=== PATIENT | male | born 1965 | race Caucasian/White ===

== ENCOUNTER 2016-07-31 21:29 | Inpatient (IN) | payer OTHER ==
[~2016-07-31] VITALS: Ht 185.4 cm; Wt 100.2 kg
[2016-07-31 21:49] LABS: BASOPHILS % (AUTO) 0 % (0-10); EOSINOPHILS % (AUTO) 0 % (0-10); LYMPHOCYTES # (AUTO) 1.5 X 10^3 (1.0-4.0); LYMPHOCYTES % (AUTO) 9 % (12-44); MEAN CORPUSCULAR HEMOGLOBIN 28 PG (25-34); MEAN CORPUSCULAR HGB CONC 35 G/DL (32-36); MEAN CORPUSCULAR VOLUME 81 FL (80-99); MEAN PLATELET VOLUME 9.2 FL (7.4-10.4); MONOCYTES # (AUTO) 0.8 X 10^3 (0.0-1.0); MONOCYTES % (AUTO) 5 % (0-12); NEUTROPHILS # (AUTO) 13.5 X 10^3 (1.8-7.8); NEUTROPHILS % (AUTO) 86 % (42-75); PLATELET COUNT 449 10^3/uL (130-400); RED BLOOD COUNT 6.14 10^6/uL (4.35-5.85); RED CELL DISTRIBUTION WIDTH 13.7 % (10.0-14.5); WHITE BLOOD COUNT 15.7 10^3/uL (4.3-11.0)
[2016-07-31 21:54] LABS: PROTHROMBIN TIME PATIENT 12.4 SEC (12.2-14.7)
--- NOTE | 2016-07-31 21:59 | Diagnostic Imaging Report ---
INDICATION: Chest pain FINDINGS: Portable view of the chest demonstrates the lungs to be clear. The heart, mediastinum, pulmonary vascularity and visualized bony thorax are normal. IMPRESSION: Negative chest. Dictated by: Dictated on workstation # [id number]
[2016-07-31] MEDS ORDERED: NITROGLYCERIN 2% OINT 1 GM UNIT DOSE PACKET TOP ONE ×2 (22:00→23:00)
[2016-07-31] MEDS ORDERED: ASPIRIN 81 MG CHEW (CHILDREN'S ASA) PO ONE (22:00)
[2016-07-31] MEDS ORDERED: ONDANSETRON 4 MG/2 ML (SDV) Z0FRAN IVP ONE (22:00)
[2016-07-31] MEDS ORDERED: meTOprolol 5 MG/5 ML (LOPRESSOR) VIAL IV ONE ×2 (22:00→23:00)
[2016-07-31 22:06] LABS: ALANINE AMINOTRANSFERASE 46 U/L (0-55); ALBUMIN 4.7 G/DL (3.2-4.5); AMYLASE 64 U/L (25-125); ANION GAP 15 MMOL/L (5-14); ASPARTATE AMINO TRANSFERASE 54 U/L (5-34); BILIRUBIN,TOTAL 0.9 MG/DL (0.1-1.0); BLOOD UREA NITROGEN 15 MG/DL (7-18); BUN/CREATININE RATIO 12; CALCIUM 10.7 MG/DL (8.5-10.1); CARBON DIOXIDE 22 MMOL/L (21-32); CHLORIDE 101 MMOL/L (98-107); CREATINE KINASE 575 U/L (30-200); CREATININE SERUM 1.21 MG/DL (0.60-1.30); GFR ESTIMATED > 60; GLUCOSE 178 MG/DL (70-105); LIPASE 23 U/L (8-78); MAGNESIUM 1.9 MG/DL (1.8-2.4); POTASSIUM 3.9 MMOL/L (3.6-5.0); SODIUM 138 MMOL/L (135-145); TOTAL PROTEIN 8.1 G/DL (6.4-8.2)
[2016-07-31] MEDS ORDERED: NS IV 1000 ML 1,000 ML IV ONE (22:06)
[2016-07-31 22:08] LABS: BAND NEUTROPHILS 0 %; BASOPHILS % (MANUAL) 0 %; EOSINOPHILS % (MANUAL) 0 %; LYMPHOCYTES % (MANUAL) 11 %; NEUTROPHILS % (MANUAL) 87 %
[2016-07-31 22:14] LABS: TROPONIN I 5.67 NG/ML (<0.30)
--- NOTE | 2016-07-31 22:14 | ED Chest Pain ---
General Chief Complaint: Chest Pain Stated Complaint: LOWER BACK/CHEST PAIN Nursing Triage Note: PT TO ED 10 W/ C/O CP ONSET LAST NOC, WORSE TODAY. ALSO REPORTS N/V, INCREASED BELCHING ET DECREASED APPETITE Nursing Sepsis Screen: No Definite Risk Source: patient History of Present Illness Time seen by provider: 21:40 Initial Comments PT ARRIVES VIA POV FROM HOME C/O CHEST AND MID / LOWER BACK PAIN SINCE 0 LAST NIGHT PAIN IS CONSTANT, BUT WAXES AND WANES IN INTENSITY--RATES PAIN 10/10 AT WORSE, IS 7/10 ON ARRIVAL HAS HAD SWEATS HAS HAD NAUSEA AND VOMITED AT LEAST 20 TIMES--STATES HE CANNOT KEEP WATER DOWN. HAS NOT EATEN TODAY, EXCEPT A COUPLE OF BITES OF POP TARTS THIS AM NO DIARRHEA NO SHORTNESS OF BREATH MILD NON-PRODUCTIVE COUGH OCCASIONALLY FOR A MONTH NO PALPITATIONS C/O URINARY FREQUENCY, NO PAIN ON URINATION. PT HAD SIMILAR EPISODE THE FIRST OF JUNE, WHILE AT WORK ( PT WORKS FOR [employer]) BUT REFUSED TO GO TO HOSPITAL AND DID NOT FOLLOW UP WITH PCP AFTER THE EPISODE PT HAS BEEN UNDER MUCH STRESS RECENTLY AND HAS LOST 20 LBS IN THE LAST MONTH, SINCE HIS 23 Y.O. SON 07/07/16 FROM CARDIAC ARREST--HAD HX OF TACHYCARDIA PCP: CUCO HERNANDEZ--HAS NOT SEEN IN QUITE SOME TIME Allergies and Home Medications Allergies Coded Allergies: No Known Drug Allergies (Unverified , 07/31/16) Review of Systems Constitutional: see HPI diaphoresis EENTM: No Symptoms Reported Respiratory: CoughDenies Shortness of Air, Denies Wheezing Cardiovascular: See HPI Chest PainDenies Edema, Denies Irregular Heart Rate, LightheadednessDenies Palpitations Gastrointestinal: See HPIDenies Abdominal Pain, Nausea Poor Appetite Poor Fluid Intake Vomiting Genitourinary: See HPI Frequency Flank Pain Musculoskeletal: no symptoms reported see HPI back pain Skin: no symptoms reported Psychiatric/Neurological: See HPI Anxiety Depressed Emotional ProblemsDenies Headache, Denies Numbness, Denies Paresthesia, Denies Seizure, Denies Tingling, Denies Tremors, Denies Weakness Endocrine: No Symptoms Reported Hematologic/Lymphatic: No Symptoms Reported Past Vditarl-Bkuuih-Dbopuj Hx Patient Social History Alcohol Use: Past History (NO ALCOHOL SINCE 02/2016) Recreational Drug Use: No Smoking Status: Never a Smoker Recent Foreign Travel: No Contact w/Someone Who Travel: No Recent Infectious Disease Expo: No Recent Hopitalizations: No Surgeries HX Surgeries: No Respiratory Hx Respiratory Disorders: No Cardiovascular Hx Cardiac Disorders: Yes Cardiac Disorders: High Cholesterol, Hypertension Neurological Hx Neurological Disorders: No Reproductive System Hx Reproductive Disorders: No Genitourinary Hx Genitourinary Disorders: No Gastrointestinal Hx Gastrointestinal Disorders: No Musculoskeletal Hx Musculoskeletal Disorders: No Endocrine Hx Endocrine Disorders: No HEENT HX ENT Disorders: No Cancer Hx Cancer: No Psychosocial Hx Psychiatric Problems: No Integumentary HX Skin/Integumentary Disorder: No Blood Transfusions Hx Blood Disorders: No Physical Exam Vital Signs Vital Sign - Last 12Hours 07/31/16 21:33 O2 Flow Rate 2 Capillary Refill : Less Than 3 Seconds General Appearance: No Apparent Distress WD/WN HEENT: PERRL/EOMI Neck: Full Range of Motion Normal Inspection Non Tender SuppleNo Carotid Bruit , No JVD Respiratory: Normal Breath Sounds No Accessory Muscle Use No Respiratory Distress Cardiovascular: No Edema No JVD No Murmur Normal Peripheral Pulses Tachycardia Gastrointestinal: Normal Bowel Sounds No Organomegaly No Pulsatile Mass Non Tender Soft Extremity: Normal Capillary Refill Normal Inspection Normal Range of Motion Non Tender No Calf Tenderness No Pedal Edema Neurologic/Psychiatric: Alert Oriented x3 No Motor/Sensory Deficits Normal 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 Norm as Tested Skin: Normal Color Warm/Dry Progress/Results/Core Measures Results/Orders Lab Results Laboratory Tests Test 07/31/16 21:35 Range/Units Activated Partial Thromboplast Time 24 24-35 SEC Alanine Aminotransferase (ALT/SGPT) 46 0-55 U/L Albumin 4.7 H 3.2-4.5 G/DL Alkaline Phosphatase 87 40-136 U/L Amylase Level 64 25-125 U/L Anion Gap 15 H 5-14 MMOL/L Aspartate Amino Transf (AST/SGOT) 54 H 5-34 U/L B-Type Natriuretic Peptide 50.1 <100.0 PG/ML BUN/Creatinine Ratio 12 Band Neutrophils 0 % Basophils # (Auto) 0.0 0.0-0.1 10^3/uL Basophils % (Manual) 0 % Basophils (%) (Auto) 0 0-10 % Blood Morphology Comment NORMAL Blood Urea Nitrogen 15 7-18 MG/DL Calcium Level 10.7 H 8.5-10.1 MG/DL Carbon Dioxide Level 22 21-32 MMOL/L Chloride Level 101 98-107 MMOL/L Creatine Kinase MB 46.5 *H <6.6 NG/ML Creatinine 1.21 0.60-1.30 MG/DL Eosinophils # (Auto) 0.0 0.0-0.3 10^3/uL Eosinophils % (Manual) 0 % Eosinophils (%) (Auto) 0 0-10 % Estimat Glomerular Filtration Rate > 60 Glucose Level 178 H 70-105 MG/DL Hematocrit 49 40-54 % Hemoglobin 17.3 13.3-17.7 G/DL INR Comment 1.0 0.8-1.4 Lipase 23 8-78 U/L Lymphocytes # (Auto) 1.5 1.0-4.0 X 10^3 Lymphocytes % (Manual) 11 % Lymphocytes (%) (Auto) 9 L 12-44 % Magnesium Level 1.9 1.8-2.4 MG/DL Mean Corpuscular Hemoglobin 28 25-34 PG Mean Corpuscular Hemoglobin Concent 35 32-36 G/DL Mean Corpuscular Volume 81 80-99 FL Mean Platelet Volume 9.2 7.4-10.4 FL Monocytes # (Auto) 0.8 0.0-1.0 X 10^3 Monocytes % (Manual) 2 % Monocytes (%) (Auto) 5 0-12 % Neutrophils # (Auto) 13.5 H 1.8-7.8 X 10^3 Neutrophils % (Manual) 87 % Neutrophils (%) (Auto) 86 H 42-75 % Platelet Count 449 H 130-400 10^3/uL Potassium Level 3.9 3.6-5.0 MMOL/L Prothrombin Time 12.4 12.2-14.7 SEC Red Blood Count 6.14 H 4.35-5.85 10^6/uL Red Cell Distribution Width 13.7 10.0-14.5 % Sodium Level 138 135-145 MMOL/L Total Bilirubin 0.9 0.1-1.0 MG/DL Total Creatine Kinase 575 H 30-200 U/L Total Protein 8.1 6.4-8.2 G/DL Troponin I 5.67 *H <0.30 NG/ML White Blood Count 15.7 H 4.3-11.0 10^3/uL My Orders Orders-GARRY IBARRA DO Amylase (07/31/16 21:43) Cbc With Automated Diff (07/31/16 21:43) Comprehensive Metabolic Panel (07/31/16 21:43) Creatine Kinase (07/31/16 21:43) Creatine Kinase Mb (07/31/16 21:43) Lipase (07/31/16 21:43) Partial Thromboplastin Time (07/31/16 21:43) Protime With Inr (07/31/16 21:43) Troponin I (07/31/16 21:43) Chest 1 View, Ap/Pa Only (07/31/16 21:43) O2 (07/31/16 21:43) Ekg Tracing (07/31/16 21:43) BNP (07/31/16 21:43) Monitor-Rhythm Ecg Trace Only (07/31/16 21:43) Magnesium (07/31/16 21:43) Ua Culture If Indicated (07/31/16 21:43) Blood Culture (07/31/16 21:48) Influenza A And B Antigens (07/31/16 21:48) Ondansetron Injection (Zofran Injectio (07/31/16 22:00) Metoprolol Tartrate Injection (Lopressor (07/31/16 22:00) Aspirin Chewable Tablet (Baby Aspirin Ch (07/31/16 22:00) Nitroglycerin Ointment (Nitrobid Ointme (07/31/16 22:00) Manual Differential (07/31/16 21:35) Saline Lock/Iv-Start (07/31/16 22:06) Ns Iv 1000 Ml (Sodium Chloride 0.9%) (07/31/16 22:06) Enoxaparin Injection (Lovenox Injection) (07/31/16 22:30) Metoprolol Succinate (Xl) Tab (Toprol Xl (07/31/16 22:30) Clopidogrel Tablet (Plavix Tablet) (07/31/16 22:30) Morphine Injection (Morphine Injection (07/31/16 22:24) Metoprolol Succinate (Xl) Tab (Toprol Xl (07/31/16 22:45) Metoprolol Succinate (Xl) Tab (Toprol Xl (07/31/16 22:45) Metoprolol Succinate (Xl) Tab (Toprol Xl (07/31/16 22:45) Medications Given in ED Current Medications Medications Dose Ordered Sig/Tex Route Start Time Stop Time Status Last Admin Dose Admin Aspirin 324 mg ONCE ONCE PO 07/31/16 22:00 07/31/16 22:01 DC 07/31/16 22:04 324 MG Clopidogrel Bisulfate 300 mg ONCE ONCE PO 07/31/16 22:30 07/31/16 22:31 DC 07/31/16 22:26 300 MG Enoxaparin Sodium 100 mg ONCE ONCE SC 07/31/16 22:30 07/31/16 22:31 DC 07/31/16 22:26 100 MG Metoprolol Tartrate 5 mg ONCE ONCE IV 07/31/16 22:00 07/31/16 22:01 DC 07/31/16 22:03 5 MG Metoprolol Tartrate 5 mg ONCE ONCE IV 07/31/16 23:00 07/31/16 23:02 DC 07/31/16 23:10 5 MG Nitroglycerin 0.5 inch ONCE ONCE TOP 07/31/16 23:00 07/31/16 23:02 DC 07/31/16 23:10 0.5 INCH Nitroglycerin 1 inch 1 inch ONCE ONCE TOP 07/31/16 22:00 07/31/16 22:01 DC 07/31/16 22:03 1 INCH Ondansetron HCl 4 mg ONCE ONCE IVP 07/31/16 22:00 07/31/16 22:01 DC 07/31/16 22:03 4 MG Sodium Chloride 1,000 ml @ 0 mls/hr Q0M ONCE IV 07/31/16 22:06 07/31/16 22:08 DC 07/31/16 22:12 1,000 MLS/HR Vital Signs/I&O Vital Sign - Last 12Hours 07/31/16 07/31/16 07/31/16 21:30 21:30 21:33 Temp 97.1 Pulse 126 Resp 20 B/P 150/127 Pulse Ox 93 95 O2 Delivery Room Air Room Air Nasal Cannula O2 Flow Rate 2 Blood Pressure Mean: 135 Progress Note : Progress Note PAIN EASED WITH NTG AND MORPHINE AND NO PAIN AT ALL AT TIME OF ADMIT. BP DOWN EVENTUALLY DOWN WITH MULTIPLE MEDICATIONS AND HEART RATE DOWN WITH MEDICATIONS ECG Initial ECG Impression Time: 21:37 Initial ECG Rate: 119 Initial ECG Rhythm: S.Tach (DIFFUSE Q WAVES INFERIOR, ANTERIOR AND LATERAL LEADS. NO ST SEGMENT CHANGES) Initial ECG Comparisson: No Previous ECG Available Diagnostic Imaging Comments CXR--NO ACUTE PROCESS, PER RADIOLOGIST REPORT @ 2213 Reviewed: Reviewed by Me Departure Communication Progress Notes 2210/2211--PAGED/ SPOKE WITH DR. TEJADA. ORDERS NOTED. HE WILL CALL BACK SHORTLY TO CHECK ON STATUS OF PT AND DECIDE IF TO TAKE TO [facility] TONIGHT OR IN AM. 2300--DR. TEJADA CALLED. UPDATE GIVEN. HE ADVISES ADMIT TO ICU AND HE WILL TAKE TO [facility] IN AM. Impression Impression: Primary Impression: SUBACUTE CA Additional Impressions: Uncontrolled hypertension Tachycardia Disposition: ADMITTED INPATIENT Condition: Improved Decision to Admit Reason: Admit from ER (Trauma) Decision to Admit/Date: Jul 31, 2016 Time/Decision to Admit Time: 23:00 Departure-Patient Inst. Referrals: UNKNOWN (PCP/Family) Primary Care Physician GARRY IBARRA DO Jul 31, 2016 22:13
[2016-07-31] MEDS ORDERED: CLOPIDOGREL 300 MG (PLAVIX) TABLET PO ONE ×2 (22:21→22:30)
[2016-07-31] MEDS ORDERED: morphine INJ 10 MG/ML 1ML (SYR OR VIAL) ONE (22:21)
[2016-07-31] MEDS ORDERED: ENOXAPARIN 100 MG/1 ML (LOVENOX) SYR ONE (22:21)
[2016-07-31] MEDS ORDERED: meTOproloL SUCCINATE 50 MG (TOPROL XL) TAB PO ONE (22:21)
[2016-07-31] MEDS ORDERED: morphine INJ 10 MG/ML 1ML (SYR OR VIAL) IVP STA ×2 (22:24→23:00)
[2016-07-31] MEDS ORDERED: ENOXAPARIN 100 MG/1 ML (LOVENOX) SYR SC ONE (22:30)
[2016-07-31] MEDS ORDERED: meTOprolol SUCCINATE 100 MG (TOPROL XL) TAB PO ONE (22:30)
[2016-07-31] MEDS ORDERED: meTOproloL SUCCINATE 50 MG (TOPROL XL) TAB PO SCH ×3 (22:45)
[2016-07-31] MEDS ORDERED: amLODIPine 5 MG (NORVASC) TAB PO ONE (23:15)
[2016-08-01] VITALS (30 sets, daily range): BP systolic 80–129; BP diastolic 52–100
[2016-08-01] MEDS ORDERED: CATHETER FLUSH 10 ML SYR IV PRN (01:45)
[2016-08-01] MEDS ORDERED: ONDANSETRON 4 MG/2 ML (SDV) Z0FRAN IV PRN (01:45)
[2016-08-01] MEDS ORDERED: morphine INJ 10 MG/ML 1ML (SYR OR VIAL) IV PRN (01:45)
[2016-08-01] MEDS ORDERED: NITROGLYCERIN SUBLINGUAL 0.4 MG TAB (NITROSTAT) SL PRN (01:45)
[2016-08-01 04:31] LABS: BASOPHILS % (AUTO) 0 % (0-10); EOSINOPHILS % (AUTO) 0 % (0-10); LYMPHOCYTES # (AUTO) 2.7 X 10^3 (1.0-4.0); LYMPHOCYTES % (AUTO) 21 % (12-44); MEAN CORPUSCULAR HEMOGLOBIN 28 PG (25-34); MEAN CORPUSCULAR HGB CONC 34 G/DL (32-36); MEAN CORPUSCULAR VOLUME 83 FL (80-99); MEAN PLATELET VOLUME 9.2 FL (7.4-10.4); MONOCYTES # (AUTO) 1.4 X 10^3 (0.0-1.0); MONOCYTES % (AUTO) 11 % (0-12); NEUTROPHILS # (AUTO) 8.6 X 10^3 (1.8-7.8); NEUTROPHILS % (AUTO) 68 % (42-75); PLATELET COUNT 382 10^3/uL (130-400); RED BLOOD COUNT 5.55 10^6/uL (4.35-5.85); RED CELL DISTRIBUTION WIDTH 13.5 % (10.0-14.5); WHITE BLOOD COUNT 12.7 10^3/uL (4.3-11.0)
[2016-08-01 04:57] LABS: PHOSPHORUS 5.7 MG/DL (2.3-4.7)
[2016-08-01 05:01] LABS: ALANINE AMINOTRANSFERASE 40 U/L (0-55); ALBUMIN 3.9 G/DL (3.2-4.5); ANION GAP 13 MMOL/L (5-14); ASPARTATE AMINO TRANSFERASE 75 U/L (5-34); BLOOD UREA NITROGEN 17 MG/DL (7-18); BUN/CREATININE RATIO 15; CALCIUM 9.4 MG/DL (8.5-10.1); CARBON DIOXIDE 25 MMOL/L (21-32); CHLORIDE 102 MMOL/L (98-107); CREATININE SERUM 1.14 MG/DL (0.60-1.30); GFR ESTIMATED > 60; GLUCOSE 118 MG/DL (70-105); SODIUM 140 MMOL/L (135-145); TOTAL PROTEIN 6.3 G/DL (6.4-8.2)
[2016-08-01 05:08] LABS: MYOGLOBIN SERUM 193.3 NG/ML (10.0-92.0)
[2016-08-01] MEDS: CATHETER FLUSH 10 ML SYR IV SCH ×3 (05:38→22:00)
[2016-08-01] MEDS ORDERED: LACTATED RINGERS 1,000 ML IV ONE (05:45)
[2016-08-01] MEDS: MAGNESIUM 1 GM/100 ML IVPB 100 ML IV SCH (05:58)
[2016-08-01] MEDS: POTASSIUM CL 10MEQ/50ML IVPB 50 ML IV SCH (05:58)
[2016-08-01] MEDS: KCL 20 MEQ TAB (K-DUR) PO SCH (05:58)
[2016-08-01] MEDS ORDERED: NITROGLYCERIN 2% OINT 1 GM UNIT DOSE PACKET TOP SCH ×2 (06:00)
[2016-08-01] MEDS ORDERED: LIDOCAINE 1% INJ 20 ML (XYLOCAINE) VIAL ONE (06:59)
[2016-08-01] MEDS ORDERED: NS IV 1000 ML 1,000 ML ONE (06:59)
[2016-08-01] MEDS ORDERED: HEParin (CATH LAB) 2,000 ML IV ONE (06:59)
[2016-08-01] MEDS ORDERED: fentaNYL INJECTION 100 MCG/2 ML AMP ONE (07:07)
[2016-08-01] MEDS ORDERED: MIDAZOLAM 5 MG/5 ML (VERSED) VIAL ONE (07:07)
[2016-08-01] MEDS ORDERED: diphenhydrAMINE 50 MG/ML INJ (BENADRYL) ONE (07:07)
[2016-08-01] MEDS ORDERED: NITROGLYCERIN DRIP 25 MG/D5W 250 ML IV ONE (07:08)
[2016-08-01] MEDS ORDERED: HEParin 1000 UNIT/ML (10ML VIAL) FOR BOLUS ONE (07:08)
--- NOTE | 2016-08-01 07:13 | Cardiology History & Physical ---
HPI-Cardiology Cardiology H&P Date of Admission 07/31/16 Primary Care Physician Joanne,Local Physician Attending Physician Rose Lorenz MD FACP [facility] Consulting Physician BK CC: Chest discomfort HPI: 51 yo man who had continuous chest pain beginning the evening of 07/30/16 for which he finally presented to the ER more than 24 hours later. Pain was mid- chest pressure, varying from mild to severe, intermittently associated with diaphoresis, no syncope or palp, some intermittent shortness of breath, and lasted continuously for well over 24 hours. Now resolved, but bp intermittently somewhat low. Denies fever or chill. Denies such chest discomfort before. Denies leg swelling. Denies syncope or presyncope Review of Systems-Cardiology Review of Systems Constitutional: malaiseNo weight loss, No weight gain Eyes: No vision change Ears/Nose/Throat: No ear discharge, No nasal drainage, No recent hearing loss Respiratory: As described under HPI Cardiovascular: As described under HPI Gastrointestinal: No diarrhea, No nausea, No vomiting Genitourinary: No dysuria, No hematuria, No urine frequency changes Musculoskeletal: No back pain, No joint pain Skin: No rash, No ulcerations Psychiatric/Neurological: No focal weakness, No seizure Hematologic: No bleeding abnormalities EMS-Rdzfdm-Gxmidd Hx Patient Social History Alcohol Use: Past History (NO ALCOHOL SINCE 02/2016) Recreational Drug Use: No Smoking Status: Never a Smoker Recent Foreign Travel: No Recent Infectious Disease Expo: No Hospitalization with Isolation: Denies Physical Abuse Screen: No Sexual Abuse: No Past Medical History PMH As described under Assessment. Family Medical History Family History: Cardiovascular disease 19 MOTHER, , Age:60, Onset:Unknown G8 BROTHER, Onset:Unknown Diabetes mellitus 19 MOTHER, , Age:60, Onset:Unknown FH: CABG (coronary artery bypass surgery) 19 MOTHER, , Age:60, Onset:Unknown FH: Crohn's disease G8 SISTER, , Age:42, Onset:Unknown Hypercholesterolemia 19 FATHER, Onset:Unknown Hypertension 19 FATHER, Onset:Unknown G8 BROTHER, Onset:Unknown Allergies and Home Medications Allergies Coded Allergies: No Known Drug Allergies (Unverified , 07/31/16) Physical Exam-Cardiology Physical Exam Vital Signs/I&O Vital Sign - Last 12Hours 07/31/16 07/31/16 07/31/16 08/01/16 21:30 21:30 21:33 00:30 Temp 97.1 Pulse 126 81 Resp 20 20 B/P 150/127 Pulse Ox 93 95 95 O2 Delivery Room Air Room Air Nasal Cannula O2 Flow Rate 2 2 08/01/16 08/01/16 08/01/16 08/01/16 00:30 00:46 01:00 01:00 Temp 97.7 Pulse 81 86 86 Resp 14 25 B/P 124/94 124/100 Pulse Ox 97 97 98 O2 Delivery Nasal Cannula Nasal Cannula O2 Flow Rate 2.00 2.00 2.00 08/01/16 08/01/16 08/01/16 08/01/16 01:15 01:30 01:45 02:00 Pulse 85 81 78 82 Resp 13 22 11 28 B/P 116/92 110/76 102/63 101/60 Pulse Ox 96 98 98 98 O2 Delivery Nasal Cannula Nasal Cannula Nasal Cannula Nasal Cannula O2 Flow Rate 2.00 2.00 2.00 2.00 08/01/16 08/01/16 08/01/16 08/01/16 02:30 03:00 03:30 04:00 Pulse 78 77 75 68 Resp 21 25 32 19 B/P 91/60 84/52 95/58 93/58 Pulse Ox 98 97 97 97 O2 Delivery Nasal Cannula Nasal Cannula Nasal Cannula Nasal Cannula O2 Flow Rate 2.00 2.00 2.00 2.00 08/01/16 08/01/16 08/01/16 08/01/16 04:00 04:00 05:00 06:00 Temp 97.5 Pulse 66 67 Resp 21 19 B/P 95/63 84/57 Pulse Ox 97 98 99 O2 Delivery Nasal Cannula Nasal Cannula O2 Flow Rate 2.00 2.00 2.00 Capillary Refill : Less Than 3 Seconds Constitutional: AAO x 3 well-developed well-nourished HEENT: hearing is well preservedNo xanthelasmas are seen Neck: No carotid bruit, carotid pulses are 2 + bilaterally with good upstrokes Respiratory: No accessory muscle use, lungs clear to percussion lungs clear to auscultation Cardiovascular: regular rate-rhythm S1 and S2 systolic murmur (faint KETURAH at cardiac base) Gastrointestinal: No tender, softNo guarding, No rebound, audible bowel sounds Extremities: No clubbing, No cyanosis, No significant edema Neurologic/Psychiatric: oriented x 3 grossly intact power is 5/5 both on sides Skin: No rash on exposed areas, No ulcerations on exposed areas Data Review Labs Laboratory Tests 07/31/16 21:35: Activated Partial Thromboplast Time 24, Alanine Aminotransferase (ALT/SGPT) 46, Albumin 4.7H, Alkaline Phosphatase 87, Amylase Level 64, Anion Gap 15H, Aspartate Amino Transf (AST/SGOT) 54H, B-Type Natriuretic Peptide 50.1, BUN/ Creatinine Ratio 12, Band Neutrophils 0, Basophils # (Auto) 0.0, Basophils % ( Manual) 0, Basophils (%) (Auto) 0, Blood Morphology Comment NORMAL, Blood Urea Nitrogen 15, Calcium Level 10.7H, Carbon Dioxide Level 22, Chloride Level 101, Creatine Kinase MB 46.5*H, Creatinine 1.21, Eosinophils # (Auto) 0.0, Eosinophils % (Manual) 0, Eosinophils (%) (Auto) 0, Estimat Glomerular Filtration Rate > 60, Glucose Level 178H, Hematocrit 49, Hemoglobin 17.3, INR Comment 1.0, Lipase 23, Lymphocytes # (Auto) 1.5, Lymphocytes % (Manual) 11, Lymphocytes (%) (Auto) 9L, Magnesium Level 1.9, Mean Corpuscular Hemoglobin 28, Mean Corpuscular Hemoglobin Concent 35, Mean Corpuscular Volume 81, Mean Platelet Volume 9.2, Monocytes # (Auto) 0.8, Monocytes % (Manual) 2, Monocytes ( %) (Auto) 5, Neutrophils # (Auto) 13.5H, Neutrophils % (Manual) 87, Neutrophils (%) (Auto) 86H, Platelet Count 449H, Potassium Level 3.9, Prothrombin Time 12.4 , Red Blood Count 6.14H, Red Cell Distribution Width 13.7, Sodium Level 138, Total Bilirubin 0.9, Total Creatine Kinase 575H, Total Protein 8.1, Troponin I 5.67*H, White Blood Count 15.7H 08/01/16 04:03: Alanine Aminotransferase (ALT/SGPT) 40, Albumin 3.9, Alkaline Phosphatase 64, Anion Gap 13, Aspartate Amino Transf (AST/SGOT) 75H, BUN/Creatinine Ratio 15, Basophils # (Auto) 0.0, Basophils (%) (Auto) 0, Blood Urea Nitrogen 17, Calcium Level 9.4, Carbon Dioxide Level 25, Chloride Level 102, Creatinine 1.14, Eosinophils # (Auto) 0.0, Eosinophils (%) (Auto) 0, Estimat Glomerular Filtration Rate > 60, Glucose Level 118H, Hematocrit 46, Hemoglobin 15.4, Lymphocytes # (Auto) 2.7, Lymphocytes (%) (Auto) 21, Magnesium Level 2.0, Mean Corpuscular Hemoglobin 28, Mean Corpuscular Hemoglobin Concent 34, Mean Corpuscular Volume 83, Mean Platelet Volume 9.2, Monocytes # (Auto) 1.4H, Monocytes (%) (Auto) 11, Neutrophils # (Auto) 8.6H, Neutrophils (%) (Auto) 68, Platelet Count 382, Potassium Level 4.0, Red Blood Count 5.55, Red Cell Distribution Width 13.5, Sodium Level 140, Total Bilirubin 1.0, Total Protein 6.3L, Troponin I 18.19*H, White Blood Count 12.7H, Cholesterol Level 205H, HDL Cholesterol 36L, LDL Cholesterol Direct 149H, Myoglobin 193.3H, Phosphorus Level 5.7H, Triglycerides Level 163H, VLDL Cholesterol 33 Laboratory Tests 07/31/16 21:35 08/01/16 04:03 A/P-Cardiology Assessment/Admission Diagnosis * Subacute myocardial infarction without ST elevation and with post-infarction angina * Hypertension, by history * Hyperlipidemia, by history * Fam h/o early CAD Discussion and Recomendations * Card cath, with possible ad hoc cor PCI, is recommended. I went over the rationale, procedure, risks, benefits, potential complications and alternatives of these procedures in detail. He understands and provides informed consent. Arrangements are being made Clinical Quality Measures AMI/AHF: ASA po Prior to arrival: No DVT/VTE Risk/Contraindication: Risk Factor Score Per Nursin RFS Level Per Nursing on Admit: 4+=Very High ROSE LORENZ MD [facility] CCDS Aug 01, 2016 07:12
[2016-08-01] MEDS ORDERED: FLU TRIvalent (5 YOA+) 2016-17 (AFLURIA) 0.5 ML IM ONE (07:15)
[2016-08-01] MEDS ORDERED: DOPamine DRIP 250 ML IV ONE ×2 (07:30→08:25)
[2016-08-01] MEDS: NS IV 1000 ML 1,000 ML IV SCH ×3 (07:30→18:38)
--- NOTE | 2016-08-01 07:42 | Cardiac Procedure Note-CS/ASA ---
Pre-Procedure Note Pre-Op Procedure Note H&P Reviewed The H&P was reviewed, patient examined and no changes noted. Date H&P Reviewed: Aug 01, 2016 Time H&P Reviewed: 07:41 Conscious Sedation Pre-Proced Time Reviewed: 07:41 ASA Class: 4 Airway Mallampati Classification: ([place] appropriate class) I. II. III, IV Lungs Heart ASA score ASA 1: a normal healthy patient ASA 2: a patient with a mild systemic disease (mid diabetes, controlled hypertension, obesity ASA 3: a patient with a severe systemic disease that limits activity (angina , COPD, prior Myocardial infarction) ASA 4: a patient with an incapacitating disease that is a constant threat to life (CHF, renal failure) ASA 5: a moribund patient not expected to survive 24 hrs. (ruptured aneurysm) ASA 6: a declared brain patient whose organs are being harvested. For emergent operations, add the letter E after the classification Grade 2 Sedation Plan: Analgesia, Amnesia, Plan communicated to team members, Discussed options with patient/fam, Discussed risks with patient/fam Note The patient is an appropriate candidate to undergo the planned procedure, sedation, and anesthesia. The patient immediately re-assessed prior to indication. [place] TEJADA MD FACP [facility] CCDS Aug 01, 2016 07:42
[2016-08-01] MEDS ORDERED: EPTIFIBATIDE DRIP 100 ML IV ONE (08:04)
[2016-08-01] MEDS ORDERED: EPTIFIBATIDE BOLUS 10 ML IV ONE (08:04)
--- NOTE | 2016-08-01 08:05 | Diagnostic Imaging Report ---
INDICATION: Hypertension and tachycardia. Compared 07/31/2016 FINDINGS: The lungs are free of acute infiltrate. The heart size not appreciably changed. No vascular congestion. No effusion or pneumothorax. IMPRESSION: No acute appearing abnormality Dictated by: Dictated on workstation # [id number]
[2016-08-01] MEDS ORDERED: NS (IVPB) 250 ML ONE (08:13)
[2016-08-01] MEDS ORDERED: niCARdipine 25 MG/10 ML (CARDENE) AMP IV ONE (08:13)
[2016-08-01] MEDS ORDERED: NS IV 1000 ML 1,000 ML IV SCH (08:15)
[2016-08-01] MEDS ORDERED: CLOPIDOGREL 300 MG (PLAVIX) TABLET PO ONE (08:41)
[2016-08-01] MEDS ORDERED: ASPIRIN 81 MG CHEW (CHILDREN'S ASA) ONE (08:41)
[2016-08-01] MEDS ORDERED: PATIENT MAY USE OWN MEDS, ALL PO SCH (09:00)
[2016-08-01] MEDS ORDERED: ASPIRIN E.C. 325 MG (ECOTRIN) TABLET PO SCH (09:00)
[2016-08-01] MEDS: CLOPIDOGREL 75 MG (PLAVIX) TABLET PO SCH (09:00)
[2016-08-01] MEDS: ASPIRIN E.C. 81 MG (ECOTRIN) TAB PO SCH (09:00)
[2016-08-01] MEDS ORDERED: ENOXAPARIN 100 MG/1 ML (LOVENOX) SYR SC SCH (09:00)
[2016-08-01] MEDS: ENOXAPARIN 40 MG/0.4 ML (LOVENOX) SYR SC SCH (18:39)
[2016-08-01] MEDS: meTOprolol TARTRATE 25 MG (LOPRESSOR) TABLET PO SCH (21:00)
[2016-08-01] MEDS: ATORVASTATIN 40 MG (LIPITOR) TABLET PO SCH (21:25)
[2016-08-02] VITALS (14 sets, daily range): BP systolic 93–133; BP diastolic 63–89
[2016-08-02 04:37] LABS: BASOPHILS % (AUTO) 0 % (0-10); EOSINOPHILS # (AUTO) 0.1 10^3/uL (0.0-0.3); EOSINOPHILS % (AUTO) 1 % (0-10); LYMPHOCYTES # (AUTO) 2.8 X 10^3 (1.0-4.0); LYMPHOCYTES % (AUTO) 32 % (12-44); MEAN CORPUSCULAR HEMOGLOBIN 28 PG (25-34); MEAN CORPUSCULAR HGB CONC 32 G/DL (32-36); MEAN CORPUSCULAR VOLUME 86 FL (80-99); MEAN PLATELET VOLUME 9.2 FL (7.4-10.4); MONOCYTES # (AUTO) 0.8 X 10^3 (0.0-1.0); MONOCYTES % (AUTO) 9 % (0-12); NEUTROPHILS # (AUTO) 5.1 X 10^3 (1.8-7.8); NEUTROPHILS % (AUTO) 58 % (42-75); PLATELET COUNT 281 10^3/uL (130-400); RED BLOOD COUNT 4.65 10^6/uL (4.35-5.85); RED CELL DISTRIBUTION WIDTH 13.6 % (10.0-14.5); WHITE BLOOD COUNT 8.8 10^3/uL (4.3-11.0)
[2016-08-02 05:03] LABS: ANION GAP 8 MMOL/L (5-14); BLOOD UREA NITROGEN 16 MG/DL (7-18); BUN/CREATININE RATIO 14; CALCIUM 8.1 MG/DL (8.5-10.1); CARBON DIOXIDE 24 MMOL/L (21-32); CHLORIDE 108 MMOL/L (98-107); CREATININE SERUM 1.15 MG/DL (0.60-1.30); GFR ESTIMATED > 60; GLUCOSE 107 MG/DL (70-105); MAGNESIUM 1.8 MG/DL (1.8-2.4); PHOSPHORUS 2.9 MG/DL (2.3-4.7); POTASSIUM 3.7 MMOL/L (3.6-5.0); SODIUM 140 MMOL/L (135-145)
[2016-08-02] MEDS: MAGNESIUM 1 GM/100 ML IVPB 100 ML IV SCH (05:28)
[2016-08-02] MEDS: KCL 20 MEQ TAB (K-DUR) PO SCH (05:28)
[2016-08-02] MEDS: POTASSIUM CL 10MEQ/50ML IVPB 50 ML IV SCH (05:28)
[2016-08-02] MEDS: CATHETER FLUSH 10 ML SYR IV SCH ×3 (05:30→21:21)
--- NOTE | 2016-08-02 08:49 | Diagnostic Imaging Report ---
EXAMINATION: Portable upright radiograph of the chest. INDICATION: Followup MD. Uncontrolled hypertension. FINDINGS: The lungs appear clear except for mild right basilar atelectasis. The heart size is moderately enlarged. There is no significant infiltrate or vascular congestion. There is rotation on this radiograph which is probably responsible for the slightly asymmetric increased density over the left lung. Extrapleural fat is probably responsible for the lateral chest wall opacity with no definite effusion or pneumothorax. IMPRESSION: Cardiomegaly. Mild right basilar atelectasis. Dictated by: Dictated on workstation # [id number]
--- NOTE | 2016-08-02 09:01 | Progress Note-Cardiology ---
Cardiology SOAP Progress Note Subjective: Sitting up in bed. No c/o CP, palpitations, syncope, near syncope or dyspnea. No c/o right groin pain Objective: I&O/Vital Signs Vital Sign - Last 12Hours 08/02/16 08/02/16 08/02/16 08/02/16 05:00 06:00 07:00 07:00 Pulse 72 35 72 73 Resp 24 19 22 B/P 96/74 98/79 105/82 Pulse Ox 92 92 94 O2 Delivery Room Air Room Air Room Air 08/02/16 08/02/16 08/02/16 08/02/16 08:00 09:00 10:00 12:49 Temp 97.4 99.1 Pulse 80 77 72 54 Resp 24 25 20 18 B/P 98/73 113/81 110/85 125/89 Pulse Ox 97 94 95 96 O2 Delivery Room Air Room Air Room Air Room Air 08/02/16 13:00 Pulse 86 Intake and Output 08/02/16 00:00 Intake Total 2850 ml Output Total 1070 ml Balance 1780 ml Weight (Pounds): 222 Weight (Ounces): 1.0 Weight (Calculated Kilograms): [id number] Side: right Groin site without hematoma: Yes Condition: DP/PT pulses palpable, extremity w/d/p Bruising: mild bruising Constitutional: AAO x 3 well-developed well-nourished Respiratory: No accessory muscle use, lungs clear to percussion lungs clear to auscultation Cardiovascular: regular rate-rhythm S1 and S2 systolic murmur (faint KETURAH at cardiac base) Gastrointestional: No tender, softNo guarding, No rebound, audible bowel sounds Extremities: No clubbing, No cyanosis, No significant edema Neurologic/Psychiatric: oriented x 3 grossly intact power is 5/5 both on sides Skin: No rash on exposed areas, No ulcerations on exposed areas Results/Procedures: Labs Laboratory Tests 08/02/16 03:41: Anion Gap 8, BUN/Creatinine Ratio 14, Basophils # (Auto) 0.0, Basophils (%) ( Auto) 0, Blood Urea Nitrogen 16, Calcium Level 8.1L, Carbon Dioxide Level 24, Chloride Level 108H, Creatinine 1.15, Eosinophils # (Auto) 0.1, Eosinophils (%) (Auto) 1, Estimat Glomerular Filtration Rate > 60, Glucose Level 107H, Hematocrit 40, Hemoglobin 12.9L, Lymphocytes # (Auto) 2.8, Lymphocytes (%) (Auto ) 32, Magnesium Level 1.8, Mean Corpuscular Hemoglobin 28, Mean Corpuscular Hemoglobin Concent 32, Mean Corpuscular Volume 86, Mean Platelet Volume 9.2, Monocytes # (Auto) 0.8, Monocytes (%) (Auto) 9, Neutrophils # (Auto) 5.1, Neutrophils (%) (Auto) 58, Phosphorus Level 2.9, Platelet Count 281, Potassium Level 3.7, Red Blood Count 4.65, Red Cell Distribution Width 13.6, Sodium Level 140, White Blood Count 8.8 Microbiology 07/31/16 Blood Culture - Preliminary, Resulted No growth 08/01/16 MRSA Screen - Final, Complete MRSA not isolated A/P: Assessment: * Subacute myocardial infarction without ST elevation * CAD - s/p successful stent placement to the prox Ramus with an Alpine Xience 2.25 x 28 mm. LVEF 60% * Hypertension, by history * Hyperlipidemia - statin tx * Fam h/o early CAD Plan: * S/P cardiac cath on 08-01-16 with successful stent placement * Echocardiogram today to evaluate structure * Continue current medications * Increase ambulation Physician Assessment Physician Assessment Lungs: clear Cor: reg A&R * As documented in our note above * I went over the details of cath findings and interventions with him in detail , and answered questions * I have advised increased ambulation Clinical Quality Measures AMI/AHF: ASA po Prior to arrival: ROGELIO Castillo Aug 02, 2016 09:01 [place] TEJADA MD FACP [facility] CCDS Aug 02, 2016 16:49 * Subacute myocardial infarction without ST elevation * CAD - s/p successful stent placement to the prox Ramus with an Alpine Xience 2.25 x 28 mm. LVEF 60% * Hypertension, by history * Hyperlipidemia - statin tx * Fam h/o early CAD Plan: * S/P cardiac cath on 08-01-16 with successful stent placement * Echocardiogram today to evaluate structure * Continue current medications * Increase ambulation Clinical Quality Measures AMI/AHF: ASA po Prior to arrival: ROGELIO Castillo Aug 02, 2016 09:01
[2016-08-02] MEDS: meTOprolol TARTRATE 25 MG (LOPRESSOR) TABLET PO SCH ×2 (09:39→21:19)
[2016-08-02] MEDS: ASPIRIN E.C. 81 MG (ECOTRIN) TAB PO SCH (09:39)
[2016-08-02] MEDS: CLOPIDOGREL 75 MG (PLAVIX) TABLET PO SCH (09:39)
--- NOTE | 2016-08-02 11:42 | CARDIAC CATHETERIZATION ---
PROCEDURE PHYSICIAN: INDIANA TEJADA CARDIAC CATHETERIZATION AND CORONARY INTERVENTION REPORT: DATE OF PROCEDURE: 08/01/2016 Otto Adame is a 51-year-old man who presented with a subacute myocardial infarction that began on 07/30/2016 and he presented more than 24 hours later. Due to evidence of recent infarction and post infarction angina, cardiac catheterization was carried out after having obtained an informed consent for cardiac catheterization and ad hoc coronary intervention, if needed. He was brought to the cardiac catheterization laboratory in a fasting state. The right groin was prepared and draped in the usual sterile fashion. 1% lidocaine was used for local anesthesia. Modified Seldinger technique was used to advance a 6-Cambodian sheath in right femoral artery. 6-Cambodian JL4 catheter was used for left coronary angiography. 6-Cambodian JR4 catheter was used for right coronary angiography. A 6-Cambodian pigtail catheter was used for left heart catheterization, left ventricular angiography. PERCUTANEOUS INTERVENTION TO THE RAMUS INTERMEDIUS ARTERY: Following completion of the diagnostic procedure, we used a 6-Cambodian JL4.5 guide catheter to engage the left coronary artery and used a ChoICE floppy wire to cross a 99% stenosis within the ostial and proximal ramus intermedius and the tip of the wire was placed in the distal vessel. There was a large amount of clot and we performed 2 runs of suction thrombectomy with the 6-Cambodian Xpress Way catheter. Subsequently we carried out balloon angioplasty at the site of the stenoses and we then proceeded with placement of an Alpine Xience 2.25 x 28 mm stent that extends from the ostium of the ramus intermedius artery into the proximal and mid ramus intermedius artery. This was very carefully positioned and the stent was deployed at 20 atmospheres. Subsequent angiography revealed 0% residual stenosis at the previous site of 99% stenosis. The flow that was previously at ANGELICA 1 improved to ANGELICA 3. The distal part of this vessel does have severe diffuse disease, which is not amenable to intervention on account of small vessel caliber at those sites. The patient tolerated the procedure well. Angioplasty equipment was removed. Angiography of the right femoral artery was carried out through the sheath. Mynx was used to achieve hemostasis. HEMODYNAMICS: Left ventricular end diastolic pressure following coronary angiography was 10 mmHg. There was no significant pressure gradient on pullback across the aortic valve. Ascending aortic pressure was 89/55 with a mean of 64 mmHg. LEFT VENTRICULAR ANGIOGRAPHY: Left ventricular angiography was carried out in the right anterior oblique projection. Global left ventricular systolic function is well preserved. There is apical hypokinesis. Left ventricular ejection fraction is approximately 60%. There does not appear to be significant mitral regurgitation. CORONARY ANGIOGRAPHY: The left main coronary does not exhibit significant disease. The left anterior descending artery has mild plaques. The ramus intermedius artery had 99% ostial and proximal stenosis, to which successful stenting was carried out with Alpine Xience 2.25 x 28 mm stent after we had performed aspiration thrombectomy and balloon angioplasty. This resulted in resolution of stenosis to 0% and hoahaoism of antegrade flow ANGELICA 3. The left circumflex does not exhibit significant disease. The right coronary artery is dominant and does not exhibit significant disease. CONCLUSION: 1. Coronary artery disease primarily single-vessel, primarily consisting of 99% ostial and proximal stenosis of the ramus intermedius artery to which successful balloon angioplasty and stenting was carried out (Alpine Xience 2.25 x 23 mm stent deployed at 20 atmospheres), which reduced the stenosis to 0% residual and improved antegrade flow to normal. The very distal part of this vessel does have diffuse, severe disease that is not amenable to intervention on account of small vessel caliber where these stenoses are. 2. Well-preserved global left ventricular systolic function and ejection fraction of 60%. 3. Mild apical hypokinesis. 4. Normal left ventricular end-diastolic pressure. 5. No significant mitral regurgitation. DISCUSSION AND RECOMMENDATIONS: Aspirin and Plavix have been added to the regimen and are being continued. Statins have been added to the regimen are being continued. Beta blockers will be given if the blood pressure tolerates. At the time of this dictation, blood pressure is somewhat low for beta blockers. He did receive beta blockers at the time of presentation. Job ID: [id number] Dictated Date: 08/01/2016 08:55:32 Lumber Handler Date: 08/02/2016 11:26:02 / winston
[2016-08-02] MEDS: ENOXAPARIN 40 MG/0.4 ML (LOVENOX) SYR SC SCH (13:58)
[2016-08-02] MEDS: ATORVASTATIN 40 MG (LIPITOR) TABLET PO SCH (21:19)
[2016-08-03] VITALS: BP 131/81
[2016-08-03 04:00] VITALS: BP 118/75
[2016-08-03 04:56] LABS: BASOPHILS % (AUTO) 0 % (0-10); EOSINOPHILS # (AUTO) 0.1 10^3/uL (0.0-0.3); EOSINOPHILS % (AUTO) 2 % (0-10); LYMPHOCYTES # (AUTO) 2.2 X 10^3 (1.0-4.0); LYMPHOCYTES % (AUTO) 32 % (12-44); MEAN CORPUSCULAR HEMOGLOBIN 28 PG (25-34); MEAN CORPUSCULAR HGB CONC 33 G/DL (32-36); MEAN CORPUSCULAR VOLUME 84 FL (80-99); MEAN PLATELET VOLUME 9.2 FL (7.4-10.4); MONOCYTES # (AUTO) 0.7 X 10^3 (0.0-1.0); MONOCYTES % (AUTO) 11 % (0-12); NEUTROPHILS # (AUTO) 3.9 X 10^3 (1.8-7.8); NEUTROPHILS % (AUTO) 56 % (42-75); PLATELET COUNT 267 10^3/uL (130-400); RED BLOOD COUNT 5.11 10^6/uL (4.35-5.85); RED CELL DISTRIBUTION WIDTH 13.2 % (10.0-14.5); WHITE BLOOD COUNT 6.9 10^3/uL (4.3-11.0)
[2016-08-03] MEDS: CATHETER FLUSH 10 ML SYR IV SCH (05:14)
[2016-08-03] MEDS: POTASSIUM CL 10MEQ/50ML IVPB 50 ML IV SCH (05:20)
[2016-08-03] MEDS: KCL 20 MEQ TAB (K-DUR) PO SCH (05:21)
[2016-08-03] MEDS: MAGNESIUM 1 GM/100 ML IVPB 100 ML IV SCH (05:21)
[2016-08-03 05:32] LABS: ANION GAP 9 MMOL/L (5-14); BLOOD UREA NITROGEN 12 MG/DL (7-18); BUN/CREATININE RATIO 13; CALCIUM 8.6 MG/DL (8.5-10.1); CARBON DIOXIDE 25 MMOL/L (21-32); CHLORIDE 107 MMOL/L (98-107); CREATININE SERUM 0.92 MG/DL (0.60-1.30); GFR ESTIMATED > 60; GLUCOSE 119 MG/DL (70-105); MAGNESIUM 2.1 MG/DL (1.8-2.4); PHOSPHORUS 3.5 MG/DL (2.3-4.7); POTASSIUM 3.5 MMOL/L (3.6-5.0); SODIUM 141 MMOL/L (135-145)
[2016-08-03 07:57] VITALS: BP 122/80
--- NOTE | 2016-08-03 08:00 | Diagnostic Imaging Report ---
INDICATION: Myocardial infarction. 0541 hours. Comparison is made to study of 08/02/2016. FINDINGS: Heart size and pulmonary vascularity are within normal limits, and the lungs are clear, bilaterally. IMPRESSION: Unremarkable chest. Dictated by: Dictated on workstation # [id number]
[2016-08-03] MEDS ORDERED: ATOR40TA PO (08:59)
[2016-08-03] MEDS ORDERED: ASPI-983 PO (08:59)
[2016-08-03] MEDS ORDERED: METO-333 PO (08:59)
[2016-08-03] MEDS ORDERED: CLOP75TA28 PO (08:59)
--- NOTE | 2016-08-03 09:00 | Discharge Inst-Cardiology ---
Discharge Inst-Cardiac Discharge Medications New Medications: Aspirin (Aspirin EC) 81 Mg Tablet. 81 MG PO DAILY #90 Ref 3 TAB Atorvastatin Calcium (Lipitor) 40 Mg Tablet 40 MG PO HS #30 Ref 5 TAB Clopidogrel Bisulfate (Clopidogrel) 75 Mg Tablet 75 MG PO DAILY #90 Ref 3 TAB Metoprolol Tartrate (Metoprolol Tartrate) 25 Mg Tablet 12.5 MG PO BID #90 Ref 3 TAB New, Converted or Re-Newed RX: Transmitted to Pharmacy Patient Instructions Patient Instructions: Follow up appointment in one week with ROGELIO Hagan Aug 03, 2016 09:00
--- NOTE | 2016-08-03 09:04 | Progress Note-Cardiology ---
Cardiology SOAP Progress Note Subjective: Sitting up in bed. No c/o CP, dyspnea, palpitations, syncope or near syncope. No c/o groin discomfort. Objective: I&O/Vital Signs Vital Sign - Last 12Hours 08/03/16 08/03/16 08/03/16 08/03/16 00:00 01:00 04:00 07:00 Temp 99.5 97.5 Pulse 77 77 73 71 Resp 18 18 B/P 131/81 118/75 Pulse Ox 98 95 O2 Delivery Room Air Room Air 08/03/16 07:57 Temp 98.4 Pulse 70 Resp 16 B/P 122/80 Pulse Ox 97 O2 Delivery Room Air Intake and Output 08/03/16 00:00 Intake Total 440 ml Output Total 325 ml Balance 115 ml Weight (Pounds): 221 Weight (Ounces): 1.0 Weight (Calculated Kilograms): 100.527003 Side: right Groin site without hematoma: Yes Condition: DP/PT pulses palpable, extremity w/d/p Bruising: mild bruising Constitutional: AAO x 3 well-developed well-nourished Respiratory: No accessory muscle use, lungs clear to percussion lungs clear to auscultation Cardiovascular: regular rate-rhythm S1 and S2 systolic murmur (faint KETURAH at cardiac base) Gastrointestional: No tender, softNo guarding, No rebound, audible bowel sounds Extremities: No clubbing, No cyanosis, No significant edema Neurologic/Psychiatric: oriented x 3 grossly intact power is 5/5 both on sides Skin: No rash on exposed areas, No ulcerations on exposed areas Results/Procedures: Labs Laboratory Tests 08/03/16 04:32: Anion Gap 9, BUN/Creatinine Ratio 13, Basophils # (Auto) 0.0, Basophils (%) ( Auto) 0, Blood Urea Nitrogen 12, Calcium Level 8.6, Carbon Dioxide Level 25, Chloride Level 107, Creatinine 0.92, Eosinophils # (Auto) 0.1, Eosinophils (%) ( Auto) 2, Estimat Glomerular Filtration Rate > 60, Glucose Level 119H, Hematocrit 43, Hemoglobin 14.1, Lymphocytes # (Auto) 2.2, Lymphocytes (%) (Auto ) 32, Magnesium Level 2.1, Mean Corpuscular Hemoglobin 28, Mean Corpuscular Hemoglobin Concent 33, Mean Corpuscular Volume 84, Mean Platelet Volume 9.2, Monocytes # (Auto) 0.7, Monocytes (%) (Auto) 11, Neutrophils # (Auto) 3.9, Neutrophils (%) (Auto) 56, Phosphorus Level 3.5, Platelet Count 267, Potassium Level 3.5L, Red Blood Count 5.11, Red Cell Distribution Width 13.2, Sodium Level 141, White Blood Count 6.9 Microbiology 07/31/16 Blood Culture - Preliminary, Resulted No growth 08/01/16 MRSA Screen - Final, Complete MRSA not isolated A/P: Assessment: * Subacute myocardial infarction without ST elevation * CAD - Cardiac cath on 08/01/16 and s/p successful stent placement to the prox Ramus with an Alpine Xience 2.25 x 28 mm; LVEF 60% * Hypertension, by history * Hyperlipidemia - statin tx * Fam h/o early CAD Plan: * S/P cardiac cath on 08-01-16 with successful stent placement * OK to discharge home today * CV status discussed with him per Dr. Lorenz * Risk factor modification reviewed * Out pt f/u in one week Physician Assessment Physician Assessment Lungs: clear Cor: reg w/o any new murmur or rub or gallop A&R * As documented in our note above * I spoke with him and explained cath findings and interventions undertaken * I explained the rationale of current meds and advised compliance * I advised close outpatient f/u for now * He had questions about his WA and the amount of damage to the heart. I answered those in details Time spent by us in pt eval, answering questions, writing prescriptions, preparing discharge and scheduling f/u: 8:30 am to 9:04 am Clinical Quality Measures AMI/AHF: ASA po Prior to arrival: ROGELIO Castillo [facility] Aug 03, 2016 09:04 INDIANA LORENZ MD [facility] CCDS Aug 03, 2016 10:08
[2016-08-03] MEDS: ASPIRIN E.C. 81 MG (ECOTRIN) TAB PO SCH (09:54)
[2016-08-03] MEDS: CLOPIDOGREL 75 MG (PLAVIX) TABLET PO SCH (09:54)
[2016-08-03] MEDS: meTOprolol TARTRATE 25 MG (LOPRESSOR) TABLET PO SCH (09:54)
--- NOTE | 2016-08-03 10:15 | Cardiology Discharge Summary ---
Diagnosis/Chief Complaint Date of Admission Jul 31, 2016 at 23:00 Date of Discharge 08/03/16 Final/Discharge Diagnosis * Subacute myocardial infarction without ST elevation * CAD - Cardiac cath on 08/01/16 and s/p successful stent placement to the prox Ramus with an Alpine Xience 2.25 x 28 mm; LVEF 60% * Hypertension, by history * Hyperlipidemia - statin tx * Fam h/o early CAD Chief Complaint/HPI Chief Complaint/HPI CC: Chest discomfort HPI: 51 yo man who had continuous chest pain beginning the evening of 07/30/16 for which he finally presented to the ER more than 24 hours later. Pain was mid- chest pressure, varying from mild to severe, intermittently associated with diaphoresis, no syncope or palp, some intermittent shortness of breath, and lasted continuously for well over 24 hours. Now resolved, but bp intermittently somewhat low. Denies fever or chill. Denies such chest discomfort before. Denies leg swelling. Denies syncope or presyncope Feels well. See the progress note of 08/03/16 Time spent by us on 08/03/16 in pt eval, answering questions, writing prescriptions, preparing discharge and scheduling f/u: 8:30 am to 9:04 am Discharge Summary Procedures Card cath and cor intervention on 08/01/18 Hospital Course Pending Labs Laboratory Tests 08/03/16 04:32: Anion Gap 9, BUN/Creatinine Ratio 13, Basophils # (Auto) 0.0, Basophils (%) ( Auto) 0, Blood Urea Nitrogen 12, Calcium Level 8.6, Carbon Dioxide Level 25, Chloride Level 107, Creatinine 0.92, Eosinophils # (Auto) 0.1, Eosinophils (%) ( Auto) 2, Estimat Glomerular Filtration Rate > 60, Glucose Level 119, Hematocrit 43, Hemoglobin 14.1, Lymphocytes # (Auto) 2.2, Lymphocytes (%) (Auto) 32, Magnesium Level 2.1, Mean Corpuscular Hemoglobin 28, Mean Corpuscular Hemoglobin Concent 33, Mean Corpuscular Volume 84, Mean Platelet Volume 9.2, Monocytes # (Auto) 0.7, Monocytes (%) (Auto) 11, Neutrophils # (Auto) 3.9, Neutrophils (%) (Auto) 56, Phosphorus Level 3.5, Platelet Count 267, Potassium Level 3.5, Red Blood Count 5.11, Red Cell Distribution Width 13.2, Sodium Level 141, White Blood Count 6.9 Discussion & Recommendations Home Medications Reviewed patient Home Medication Reconciliation Form Discharge Home Medications: Reviewed and agree with Discharge Medication list on patient's Discharge Instruction sheet Clinical Quality Measures AMI/AHF: ASA po Prior to arrival: No DVT/VTE Risk/Contraindication: Risk Factor Score Per Nursin RFS Level Per Nursing on Admit: 4+=Very High INDIANA TEJADA MD FACP FACC CCDS Aug 03, 2016 10:15
[2016-08-03 10:47] VITALS: BP 122/80
--- NOTE | 2016-08-04 07:32 | ECHOCARDIOGRAPHY REPORT ---
PROCEDURE PHYSICIAN: INDIANA LORENZ DATE OF PROCEDURE: 08/02/2016 TWO DIMENSIONAL ECHOCARDIOGRAM REPORT PRIMARY PHYSICIAN: OTHER PHYSICIAN: REFERRING PHYSICIAN: ORDERING PHYSICIAN: Dr. Lorenz INDICATION FOR THE PROCEDURE: Coronary artery disease, recent myocardial infarction. MEASUREMENTS DERIVED VALUES LV DIAMETER (LAX) NORMALS NORMALS Diastolic 4.8 (3.6-5.2) Eject. Fract. (60%+/-6%) Systolic (2.3-3.9) Diastolic Vol. % Shortening (0.22-0.42) Systolic Vol. Aortic Root 3.1 IVS THICKNESS Diastolic 1.4 (0.6-1.1) LVPW THICKNESS Diastolic 1.3 (0.6-1.1) LA DIAMETER Systolic 3.7 (2.1-3.7) DESCRIPTION: 2-dimensional echocardiography shows normal left ventricular systolic function with normal regional wall motion. The aortic, mitral and tricuspid valve leaflets show good leaflet excursion. There appears to be mild concentric left ventricular hypertrophy. The aortic, mitral and tricuspid valves show good leaflet excursion. Doppler imaging shows trivial to mild tricuspid regurgitation. Pulmonary artery systolic pressure is estimated to be approximately 35 to 40 mmHg. There is no Doppler evidence of significant valvular stenosis. Mild diastolic dysfunction of the left ventricle. There is no evidence of any significant intracardiac shunt on this transthoracic echocardiographic study. The inferior vena cava does not appear to be dilated. CONCLUSION: 1. Normal global left ventricular systolic function with ejection fraction of approximately 50%. 2. Trivial tricuspid regurgitation. 3. Pulmonary artery systolic function is estimated to be 35 to 40 mmHg. 4. Mild diastolic dysfunction of the left ventricle. 5. Mild concentric left ventricular hypertrophy. 6. No evidence of any significant valvular stenosis. Job ID: [id number] Dictated Date: 08/03/2016 11:30:28 Sash Repairer Date: 08/04/2016 07:22:05 / winston
== END 2016-08-03 10:47 | disposition home or self-care (01) | DRG 247 ==
LOC: EDUNIT# 21:29 → ER 21:31 → ICU 23:00 → CSD 08-02 20:23
PROVIDERS: ADMIT Internal Medicine Cardiovascular Disease; ATTEND Internal Medicine Cardiovascular Disease
PROC: 027034Z Dilation of Coronary Artery, One Artery with Drug-eluting Intraluminal Device, Percutaneous Approach (ICD-10-PCS; principal; 2016-08-01)
PROC: 02C03ZZ Extirpation of Matter from Coronary Artery, One Artery, Percutaneous Approach (ICD-10-PCS; 2016-08-01)
PROC: 4A023N7 Measurement of Cardiac Sampling and Pressure, Left Heart, Percutaneous Approach (ICD-10-PCS; 2016-08-01)
PROC: B2151ZZ Fluoroscopy of Left Heart using Low Osmolar Contrast (ICD-10-PCS; 2016-08-01)
PROC: B2111ZZ Fluoroscopy of Multiple Coronary Arteries using Low Osmolar Contrast (ICD-10-PCS; 2016-08-01)
DX: I21.4 Non-ST elevation (NSTEMI) myocardial infarction (principal); I23.7 Postinfarction angina; I25.118 Atherosclerotic heart disease of native coronary artery with other forms of angina pectoris; I10 Essential (primary) hypertension; R00.0 Tachycardia, unspecified; E78.5 Hyperlipidemia, unspecified; Z82.49 Family history of ischemic heart disease and other diseases of the circulatory system
CPT/HCPCS: 36415; 71010; 80048; 80053; 80061; 82150; 82550; 82553; 83690; 83735; 83874; 83880; 84100; 84484; 85007; 85025; 85027; 85610; 85730; 87040; 87081; 93005; 93041; 93306; 93458; 96372; 96374; 96375; 96376

== ENCOUNTER → 2017-09-04 | Outpatient (CLI) | payer SELFPAY ==
[~2017-09-04] VITALS: Ht 182.9 cm; Wt 96.2 kg
[~2017-09-04] MED LIST: ASPI-983 PO; ATOR40TA PO; CATHETER FLUSH 10 ML SYR IV PRN; CLOP75TA28 PO; METO-333 PO
[2017-09-04 09:05] VITALS: BP 120/83
[2017-09-04 09:14] VITALS: BP 183/85
--- NOTE | 2017-09-04 18:18 | STRESS TEST ---
DATE OF SERVICE: 09/04/2017 RESTING AND POST-EXERCISE TECHNETIUM-99M TETROFOSMIN SPECT CT IMAGING. ORDERING PHYSICIAN: Jennifer Aguayo APRN. OTHER PHYSICIAN: Rose Tejada MD, MA, FACP, FACC. CLINICAL DIAGNOSIS: Chest discomfort. Baseline images were carried out after injection of 10.49 mCi of technetium-99m tetrofosmin. This was followed by exercise on a treadmill. Edgard protocol was employed. The electrocardiogram showed sinus rhythm with right bundle branch block at baseline. The electrocardiogram did not change significantly with the regadenoson infusion. Heart rate response to exercise was normal. Blood pressure response to exercise was somewhat hypertensive. The test was stopped on account of fatigue. After the patient had attained approximately 85% of maximum predicted heart rate, 29.7 mCi technetium-99m tetrofosmin were injected and the exercise was continued for approximately another minute. There was considerable baseline artifact with exercise and ST segments cannot be interpreted. The patient did not report chest discomfort. He exercised for a total of 8 minutes and 19 seconds in the Edgard protocol and attained 9.9 METS of workload and 85% of maximum predicted heart rate. Review of images at rest and following stress indicates a small apical perfusion defect that appears transient. Gated images show normal global left ventricular systolic function with normal regional wall motion. Left ventricular ejection fraction is calculated to be 73%. Left ventricular end diastolic volume is 60 mL. TID is absent (1.03). CONCLUSIONS: 1. This study is indicative of a small amount of apical ischemia. 2. Normal regional wall motion. 3. Normal global left ventricular systolic function with a calculated ejection fraction of 73%. Job ID: [id number] DocumentID: [id number] Dictated Date: 09/04/2017 15:13:17 Lead Cytogenetic Technologist Date: 09/04/2017 18:17:19 Dictated By: ROSE TEJADA MD, MA, FACP, FACC,
== END ==
LOC: CARD 06:50
PROVIDERS: ATTEND Nurse Practitioner Family
DX: E78.4 Other hyperlipidemia (principal); R06.09 Other forms of dyspnea; R07.9 Chest pain, unspecified; I25.10 Atherosclerotic heart disease of native coronary artery without angina pectoris; I65.29 Occlusion and stenosis of unspecified carotid artery
CPT/HCPCS: 78452; 93017

== ENCOUNTER 2017-09-25 10:56 | Day surgery (SDC) | payer OTHER ==
[2017-09-25] VITALS (7 sets, daily range): BP systolic 113–159; BP diastolic 86–106
[~2017-09-25] VITALS: Ht 170.2 cm; Wt 96.2 kg
[~2017-09-25 10:56] MED LIST changes: -CATHETER FLUSH 10 ML SYR IV PRN
[2017-09-25] MEDS ORDERED: NS IV 1000 ML 1,000 ML ONE (11:01)
[2017-09-25] MEDS ORDERED: HEParin (CATH LAB) 2,000 ML IV ONE (11:01)
[2017-09-25] MEDS ORDERED: NS IV 1000 ML 1,000 ML IV SCH ×2 (11:15→16:08)
[2017-09-25 11:29] LABS: HEMOGLOBIN 15.5 G/DL (13.3-17.7); RED BLOOD COUNT 5.53 10^6/uL (4.35-5.85); RED CELL DISTRIBUTION WIDTH 13.1 % (10.0-14.5); WHITE BLOOD COUNT 6.4 10^3/uL (4.3-11.0)
[2017-09-25] MEDS ORDERED: METF500T4 PO (11:29)
[2017-09-25] MEDS ORDERED: CLOP75TA69 PO (11:29)
[2017-09-25] MEDS ORDERED: ATOR40TA70 PO (11:29)
[2017-09-25] MEDS ORDERED: ASPI-983 PO (11:29)
[2017-09-25] MEDS ORDERED: METO-333 PO (11:29)
[2017-09-25] MEDS ORDERED: RECEIVED CONTRAST (Hold Metformin) IV SCH (11:30)
[2017-09-25 11:47] LABS: INR 0.9 (0.8-1.4)
[2017-09-25 11:54] LABS: ALANINE AMINOTRANSFERASE 31 U/L (0-55); ALKALINE PHOSPHATASE 96 U/L (40-136); BILIRUBIN,TOTAL 0.8 MG/DL (0.1-1.0); BUN/CREATININE RATIO 15; CALCIUM 9.1 MG/DL (8.5-10.1); CARBON DIOXIDE 22 MMOL/L (21-32); CHLORIDE 105 MMOL/L (98-107); CHOLESTEROL 165 MG/DL (< 200); CREATININE SERUM 0.93 MG/DL (0.60-1.30); GFR ESTIMATED > 60; GLUCOSE 174 MG/DL (70-105); HDL CHOLESTEROL 36 MG/DL (40-60); POTASSIUM 4.3 MMOL/L (3.6-5.0); SODIUM 138 MMOL/L (135-145); TOTAL PROTEIN 7.2 GM/DL (6.4-8.2); TRIGLYCERIDES 135 MG/DL (<150); VLDL CHOLESTEROL 27 MG/DL (5-40)
[2017-09-25] MEDS ORDERED: fentaNYL INJECTION 100 MCG/2 ML AMP ONE (14:46)
[2017-09-25] MEDS ORDERED: MIDAZOLAM 5 MG/5 ML (VERSED) VIAL ONE (14:46)
[2017-09-25] MEDS ORDERED: diphenhydrAMINE 50 MG/ML INJ (BENADRYL) ONE (14:46)
[2017-09-25] MEDS ORDERED: LIDOCAINE 1% INJ 50 ML (XYLOCAINE) VIAL ONE (15:02)
--- NOTE | 2017-09-25 15:39 | Cardiac Procedure Note-CS/ASA ---
Pre-Procedure Note Pre-Op Procedure Note H&P Reviewed The H&P was reviewed, patient examined and no changes noted. Date H&P Reviewed: Sep 25, 2017 Time H&P Reviewed: 15:39 Conscious Sedation Pre-Proced Time Reviewed: 15:39 ASA Class: 2 Airway Mallampati Classification: ([place] appropriate class) I. II. III, IV Lungs Heart ASA score ASA 1: a normal healthy patient ASA 2: a patient with a mild systemic disease (mid diabetes, controlled hypertension, obesity ASA 3: a patient with a severe systemic disease that limits activity (angina , COPD, prior Myocardial infarction) ASA 4: a patient with an incapacitating disease that is a constant threat to life (CHF, renal failure) ASA 5: a moribund patient not expected to survive 24 hrs. (ruptured aneurysm) ASA 6: a declared brain patient whose organs are being harvested. For emergent operations, add the letter E after the classification Grade 2 Sedation Plan: Analgesia, Amnesia, Plan communicated to team members, Discussed options with patient/fam, Discussed risks with patient/fam Note The patient is an appropriate candidate to undergo the planned procedure, sedation, and anesthesia. The patient immediately re-assessed prior to indication. INDIANA TEJADA MD FACP FAC CCDS Sep 25, 2017 15:39
--- NOTE | 2017-09-25 16:12 | Discharge Inst-Post CATH ---
Discharge Inst-CATH Post Cardiac Cath D/C Inst Follow Up/Plan HOLD METFORMIN UNTIL THE EVENING OF 09/27/17 F/u with Dr Lorenz in 2-3 weeks CARDIAC CATH DISCHARGE INSTRUCTIONS *Hold Metformin for 48 hours post heart cath. ACTIVITY * Go Home directly and rest. * Limit activity of the leg (or wrist if it was used) for 7 days including aerobics, swimming, jogging, bicycling, etc. * Restrict stair-climbing for 7 days if possible, if not, climb up with your non -cath leg, then bring together on the same step. * Avoid lifting, pushing, pulling or excessive movement of the affected extremity for 7 days. * Customary sexual activity may be resumed after 2 days-use caution not to use a position that strains or causes pain to the affected extremity. * No driving for 24 hours. * NO SMOKING. * Avoid straining for bowel movements for 7 days. * Gentle walking on level ground is allowed. * Returning to work will depend on the type of procedure and the results. Your doctor will discuss this with you. CALL YOUR DOCTOR FOR ANY OF THE FOLLOWING: *If bleeding from the puncture site occurs- Apply gentle pressure to site with clean cloth and call your doctor or EMS. * If a knot or lump forms under the skin, increases in size, or causes pain. * If bruising appears to be worsening or moving further down your leg instead of disappearing. * Temperature above 101 F. CARE OF YOUR GROIN INCISION; * Bruising or purple discoloration of the skin near the puncture site is common. * You may shower only, no bathtub bathing for 5 days. Be careful to avoid slipping as your leg may feel stiff. * If a closure device was used on your femoral artery, please see the attached guide regarding care of the device and your leg. * REMOVE the dressing from your groin the next day after your procedure in the shower. CARE OF YOUR WRIST INCISION; * Bruising or purple discoloration of the skin near the puncture site is common. * You may shower. * DO NOT submerge wrist. * Remove dressing in 24 hours. IND[place]NA LORENZ MD FACP [facility] CCDS Sep 25, 2017 16:12
[2017-09-25] MEDS ORDERED: PATIENT MAY USE OWN MEDS, ALL PO SCH (16:15)
--- NOTE | 2017-09-25 16:15 | Discharge Inst-Cardiology ---
Discharge Inst-Cardiac Discharge Medications Continued Medications: Aspirin (Aspirin EC) 81 Mg Tablet.dr 81 MG PO DAILY, TAB Atorvastatin Calcium (Atorvastatin Calcium) 40 Mg Tablet 40 MG PO DAILY, TAB Clopidogrel Bisulfate (Plavix) 75 Mg Tablet 75 MG PO DAILY, TAB Metformin HCl (Metformin HCl) 500 Mg Tablet 250 MG PO TID, TAB Metoprolol Tartrate (Metoprolol Tartrate) 25 Mg Tablet 25 MG PO BID, TAB Patient Instructions Patient Instructions: HOLD METFORMIN UNTIL THE EVENING OF 09/27/17 Orders-Post D/C & Referrals Pneu Vac Indicated: Yes INDIANA TEJADA MD FACP FACC CCDS Sep 25, 2017 16:15
--- NOTE | 2017-09-25 18:07 | CARDIAC CATHETERIZATION ---
DATE OF SERVICE: 09/25/2017 CARDIAC CATHETERIZATION REPORT The patient is a 52-year-old man with known coronary artery disease and a history of stenting of the ramus intermedius artery in 07/2016. Lately, he has been having chest discomfort and exertional shortness of breath and a myocardial perfusion imaging study was indicative of a small amount of apical ischemia. Cardiac catheterization was carried out after having obtained an informed consent. PROCEDURE: He was brought to the cardiac catheterization laboratory in a fasting state. Right groin was prepared and draped in the usual sterile fashion. A 1% lidocaine with local anesthesia. Modified Seldinger technique was used to advance a 5-Belgian sheath in the right femoral artery, 5-Belgian JL4 catheter for left coronary angiography, 5-Belgian JR4 catheter for right coronary angiography. A 5-Belgian pigtail catheter was used for left heart catheterization and left ventricular angiography. Upon removal of the diagnostic catheters, Mynx was used to achieve hemostasis. Angiography of the right femoral artery had been carried out through the sheath at the time of sheath placement. HEMODYNAMICS: Left ventricular end-diastolic pressure following coronary angiography was 13 mmHg. There was no significant pressure gradient pullback across the aortic valve. Ascending aortic pressure was 145/91 with a mean of 116 mmHg. LEFT VENTRICULAR ANGIOGRAPHY: Left ventricular angiography was carried out in right anterior oblique projection. There does not appear to be any distinct regional wall motion abnormality. Left ventricular ejection fraction is 60% to 65%. No significant mitral regurgitation is seen. CORONARY ANGIOGRAPHY: Left main coronary artery is free of significant disease. Left anterior descending artery is of a small caliber and does not exhibit significant obstructive disease. Ramus intermedius artery has a widely patent stent that does not exhibit significant in-stent restenosis. The proximal/ostial portions of the ramus intermedius artery have 20% to 30% stenosis. Left circumflex artery does not exhibit significant stenosis. Right coronary artery is dominant and has mild plaques. CONCLUSIONS: 1. Angiographically mild coronary artery disease. 2. Widely patent stent within the proximal and mid ramus intermedius artery (known to be Alpine Xience 2.25 x 23, placed on 08/01/2016). 3. Normal global left ventricular systolic function with ejection fraction of 65%. 4. No significant mitral regurgitation is seen on this study. 5. Left ventricular end-diastolic pressure at the upper end of normal. DISCUSSION AND RECOMMENDATIONS: Based on the results of the study, the recent myocardial perfusion imaging study appears to have been a false positive study. Continue risk factor modification is advised. Continuation of previous cardiac regimen is advised. Outpatient followup is advised. Job ID: [id number] DocumentID: [id number] Dictated Date: 09/25/2017 15:59:08 Asphalt Paving Machine Operator Date: 09/25/2017 18:07:10 Dictated By: INDIANA TEJADA MD, MA, FACP, FACC,
== END 2017-09-25 18:38 | disposition home or self-care (01) ==
LOC: CATH 10:56 → ICU 16:14 → CATH 18:38
PROVIDERS: ATTEND Internal Medicine Cardiovascular Disease
DX: I25.10 Atherosclerotic heart disease of native coronary artery without angina pectoris (principal); E78.5 Hyperlipidemia, unspecified; E11.65 Type 2 diabetes mellitus with hyperglycemia; I25.2 Old myocardial infarction; Z82.49 Family history of ischemic heart disease and other diseases of the circulatory system; Z95.5 Presence of coronary angioplasty implant and graft; Z79.82 Long term (current) use of aspirin; Z79.84 Long term (current) use of oral hypoglycemic drugs; Z79.899 Other long term (current) drug therapy
CPT/HCPCS: 36415; 80053; 80061; 85027; 85610; 85730; 87081; 93458

== ENCOUNTER 2019-03-10 22:14 | Emergency (ER) | payer OTHER, BC ==
[~2019-03-10] VITALS: Ht 177.8 cm; Wt 100.0 kg
[~2019-03-10 22:14] MED LIST changes: +ATOR40TA70 PO; +CLOP75TA69 PO; +METF-397 PO
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
[2019-03-10 23:20] VITALS: BP 164/90
== END 2019-03-10 23:20 | disposition home or self-care (01) ==
LOC: EDUNIT# 22:14 → ER 22:17
DX: S00.531A Contusion of lip, initial encounter (principal); S30.1XXA Contusion of abdominal wall, initial encounter; R04.0 Epistaxis; K08.89 Other specified disorders of teeth and supporting structures; I25.10 Atherosclerotic heart disease of native coronary artery without angina pectoris; I10 Essential (primary) hypertension; E78.00 Pure hypercholesterolemia, unspecified; E11.9 Type 2 diabetes mellitus without complications; Z79.82 Long term (current) use of aspirin; Z79.02 Long term (current) use of antithrombotics/antiplatelets; Z79.84 Long term (current) use of oral hypoglycemic drugs; Z95.5 Presence of coronary angioplasty implant and graft; Z82.49 Family history of ischemic heart disease and other diseases of the circulatory system; V49.50XA Passenger injured in collision with unspecified motor vehicles in traffic accident, initial encounter
CPT/HCPCS: 99283

== ENCOUNTER 2020-10-18 20:30 | Emergency (ER) | payer BC, OTHER ==
[~2020-10-18] VITALS: Ht 180 cm; Wt 100.0 kg
[~2020-10-18 20:30] MED LIST changes: +ASPI-1238 PO; -ASPI-983 PO
[2020-10-18] MEDS ORDERED: DOXY100T2 PO (21:12)
--- NOTE | 2020-10-18 21:13 | ED Integumentary General ---
General Chief Complaint: Bite-Animal/Human/Insect Stated Complaint: R LEG SPIDER BITE Source: patient Exam Limitations: no limitations History of Present Illness Date Seen by Provider: Oct 18, 2020 Time Seen by Provider: 21:08 Initial Comments To ER with a red lesion to the proximal right thigh. He noticed this about 3 da ys ago. He has been squeezing on it and unable to get much out. He is a diabetic. No fevers chills nausea vomiting or systemic symptoms. He believes this might be a spider bite though he did not actually see anything biting him. 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 Timing/Duration: yesterday Severity: moderate Location: extremities (proximal right thigh) Possible Cause: no cause identified Associated Symptoms: denies symptoms Allergies and Home Medications Allergies Coded Allergies: No Known Drug Allergies (Unverified , 07/31/16) Home Medications Aspirin 81 Mg Tablet.dr, 81 MG PO DAILY, (Reported) Atorvastatin Calcium 40 Mg Tablet, 40 MG PO DAILY, (Reported) Clopidogrel Bisulfate 75 Mg Tablet, 75 MG PO DAILY, (Reported) Doxycycline Hyclate 100 Mg Tablet, 100 MG PO BID Prescribed by: KAROL CEDILLO on 10/18/202111 Metformin HCl 500 Mg Tablet, 250 MG PO TID, (Reported) Metoprolol Tartrate 25 Mg Tablet, 25 MG PO BID, (Reported) Patient Home Medication List Home Medication List Reviewed: Yes Review of Systems Review of Systems Constitutional: see HPI; No chills, No fever EENTM: see HPI Respiratory: no symptoms reported Cardiovascular: no symptoms reported Genitourinary: no symptoms reported Musculoskeletal: no symptoms reported Skin: see HPI Psychiatric/Neurological: No Symptoms Reported Endocrine: No Symptoms Reported Past Tzjhipb-Ylcuje-Sjzohw Hx Patient Social History Alcohol Use: Denies Use Smoking Status: Never a Smoker 2nd Hand Smoke Exposure: No Recent Hopitalizations: No Immunizations Up To Date PED Vaccines UTD: No Seasonal Allergies Seasonal Allergies: Yes Past Medical History Surgeries: Yes Coronary Stent Respiratory: No Cardiac: Yes Coronary Artery Disease, High Cholesterol, Hypertension Neurological: No Reproductive Disorders: No Genitourinary: No Gastrointestinal: No Musculoskeletal: No Endocrine: Yes Diabetes, Non-Insulin dep HEENT: No Cancer: No Psychosocial: No Integumentary: No Blood Disorders: No Family Medical History Cardiovascular disease 19 MOTHER, , Age:60, Onset:Unknown G8 BROTHER, Onset:Unknown Diabetes mellitus 19 MOTHER, , Age:60, Onset:Unknown FH: CABG (coronary artery bypass surgery) 19 MOTHER, , Age:60, Onset:Unknown FH: Crohn's disease G8 SISTER, , Age:42, Onset:Unknown Hypercholesterolemia 19 FATHER, Onset:Unknown Hypertension 19 FATHER, Onset:Unknown G8 BROTHER, Onset:Unknown Physical Exam Vital Signs Vital Signs - First Documented 10/18/20 20:38 Temp 37.0 Pulse 101 Resp 18 B/P (MAP) 172/107 (128) O2 Delivery Room Air Capillary Refill : General Appearance: WD/WN, no apparent distress HEENT: PERRL/EOMI, normal ENT inspection Cardiovascular: regular rate, rhythm, no murmur Respiratory: no respiratory distress, no accessory muscle use Gastrointestinal: normal bowel sounds, non tender, soft Neurologic/Psychiatric: alert, normal mood/affect, oriented x 3 Skin: normal color, warm/dry Skin Problem Location: other (There is an area to the proximal right thigh that is erythematous. This measures about 8 x 15 cm. The center of this is indurated. There is cobblestoning of the tissue seen on bedside ultrasound but no fluid collection.) Skin Problem Character: abscess, erythema Procedures/Interventions Suture Size: 4-0 Progress/Results/Core Measures Results/Orders My Orders Orders - KAROL CEDILLO APRN Doxycycline Hyclate Tablet (Vibramycin T (10/18/20 21:15) Ceftriaxone For Im Use (Rocephin For Im (10/18/20 21:15) Lidocaine 1% Inj 20 Ml (Xylocaine 1% Inj (10/18/20 21:15) Medications Given in ED Current Medications Medications Dose Ordered Sig/Tex Route Start Time Stop Time Status Last Admin Dose Admin Lidocaine HCl 2.1 ml ONCE ONCE INJ 10/18/20 21:15 10/18/20 21:16 DC 10/18/20 21:17 2.1 ML Vital Signs/I&O 10/18/20 20:38 Temp 37.0 Pulse 101 Resp 18 B/P (MAP) 172/107 (128) O2 Delivery Room Air Departure Impression Primary Impression: Abscess or cellulitis of thigh Disposition: 01 HOME, SELF-CARE Condition: Stable Departure-Patient Inst. Decision time for Depature: 21:12 Referrals: YENY STEVENS MD (PCP) Primary Care Physician Patient Instructions: Cellulitis (Skin Infection), Adult (DC) Add. Discharge Instructions: 1. Antibiotics as directed. Return to ER for any concerns. Follow-up with your doctor later this week for recheck. Return to ER for any sign of systemic illness such as nausea vomiting chills fevers. All discharge instructions reviewed with patient and/or family. Voiced understanding. Scripts Doxycycline Hyclate (Doxycycline Hyclate) 100 Mg Tablet 100 MG PO BID, #20 TAB 0 Refills Prov: KAROL CEDILLO APRN 10/18/20 Images Extremities-Lower 1 - Cellulitis KAROL CEDILLO APRN Oct 18, 2020 21:12
[2020-10-18] MEDS ORDERED: LIDOCAINE 1% INJ 20 ML 20 ML VIAL INJ ONE (21:15)
[2020-10-18] MEDS ORDERED: cefTRIAXone 1,000 MG/2.86 ml vial (IM ONLY) IM SCH (21:15)
[2020-10-18] MEDS ORDERED: DOXYCYCLINE 100 MG (VIBRAMYCIN) TABLET PO SCH (21:15)
[2020-10-18 21:40] VITALS: BP 153/98
== END 2020-10-18 21:40 | disposition home or self-care (01) ==
LOC: EDUNIT# 20:30 → ER 20:32
DX: L02.415 Cutaneous abscess of right lower limb (principal); L03.115 Cellulitis of right lower limb; I10 Essential (primary) hypertension; E78.00 Pure hypercholesterolemia, unspecified; E11.9 Type 2 diabetes mellitus without complications; Z79.84 Long term (current) use of oral hypoglycemic drugs; Z79.82 Long term (current) use of aspirin; Z79.899 Other long term (current) drug therapy
CPT/HCPCS: 99284

== ENCOUNTER → 2020-11-16 | Outpatient (CLI) | payer BC ==
[~2020-11-16] VITALS: Ht 182 cm; Wt 92.0 kg
[~2020-11-16] MED LIST changes: +CATHETER FLUSH 10 ML SYR IV PRN; +DOXY100T2 PO; +REGADENOSON 0.4 MG/5 ML SYR (LEXISCAN) IV ONE
[2020-11-16 09:07] VITALS: BP 159/107
--- NOTE | 2020-11-16 15:47 | STRESS TEST ---
DATE OF SERVICE: 11/16/2020 RESTING AND POST REGADENOSON TECHNETIUM-99M TETROFOSMIN SPECT CT IMAGING. Baseline images were carried out after injection of 10.89 mCi of technetium-99m Tetrofosmin. This was followed by 0.4 mg of Regadenoson and 30 mCi of technetium-99m Tetrofosmin for stress imaging. The electrocardiogram showed sinus rhythm at baseline. There was an incomplete right bundle branch block. There was left anterior fascicular block. The electrocardiogram did not change significantly with the Regadenoson infusion. Review of images at rest and following stress does not indicate any distinct perfusion defects consistent with significant myocardial ischemia or infarction. Some degree of apical thinning is seen. Gated images show normal global left ventricular systolic function with normal regional wall motion (including the apex). Left ventricular ejection fraction is calculated to be 54%. Left ventricular end diastolic volume is 65 mL. TID is absent (0.96). CONCLUSIONS: 1. No evidence of any significant myocardial ischemia or infarction on this study. 2. Normal regional wall motion. 3. Normal global left ventricular systolic function with a calculated ejection fraction of 54%. Job ID: [id number] DocumentID: [id number] Dictated Date: 11/16/2020 15:18:44 Cabin Crew Date: 11/16/2020 15:46:13 Dictated By: [place] TEJADA MD, MA, FACP, FACC,
== END ==
LOC: CARD 08:15
PROVIDERS: ATTEND Nurse Practitioner Family
DX: I25.10 Atherosclerotic heart disease of native coronary artery without angina pectoris (principal)
CPT/HCPCS: 78452; 93017; A9502

== ENCOUNTER 2021-01-21 04:59 | Inpatient (IN) | payer BC ==
[~2021-01-21] VITALS: Ht 180 cm; Wt 82.0 kg
[~2021-01-21 04:59] MED LIST changes: -CATHETER FLUSH 10 ML SYR IV PRN; -REGADENOSON 0.4 MG/5 ML SYR (LEXISCAN) IV ONE
--- NOTE | 2021-01-21 05:23 | ED Respiratory ---
General Chief Complaint: Respiratory Problems Stated Complaint: COVID+ SINCE 01-14-21,STS STATS GOING DOWN Source: patient Exam Limitations: no limitations (ROLY KAYE MD) History of Present Illness Date Seen by Provider: Jan 21, 2021 Time Seen by Provider: 05:10 Initial Comments Otto is a 55-year-old male who presents to the emergency department today with a chief complaint of shortness of breath and low oxygen saturations. He was diagnosed with Covid last Sunday did not receive monoclonal antibody infusion. States that he went to [facility] in [place] 24 hours ago was held in their emergency department overnight on high flow O2, had what sounds like a sepsis work-up with CT angiogram of the chest, sent home on home oxygen. Has been wearing 5 L but noted that his oxygen saturations were continuing to go down. He complains of a little chest discomfort with cough. He has a dry cough. He has had body aches nausea. No swelling in his legs. He is on Plavix with a history of coronary artery disease and stents. He is a patient of Dr. Lorenz. He is also a diabetic. Not Covid vaccinated. 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 Patient states throughout the night last night he noticed his sats dropping down to as low as 88 on his 5 L per nasal cannula. He did note oxygen saturations in the 60s prior to going to [facility] 24 hours ago. Has a temperature of 100 here in the emergency department. I noted oxygen saturations at 83% on his 5 L when I walked into the room. He is coughing. He appears to feel unwell. All other review of systems reviewed and negative except as stated above. Timing/Duration: week, getting worse Severity: moderate Prior Episodes/Possible Cause: illness exposure Modifying Factors: Worse With Coughing Associated Symptoms: fever/chills, shortness of breath (ROLY KAYE MD) Allergies and Home Medications Allergies Coded Allergies: No Known Drug Allergies (Unverified , 07/31/16) Home Medications Aspirin 81 Mg Tablet., 81 MG PO DAILY, (Reported) Atorvastatin Calcium 40 Mg Tablet, 40 MG PO DAILY, (Reported) Clopidogrel Bisulfate 75 Mg Tablet, 75 MG PO DAILY, (Reported) Doxycycline Hyclate 100 Mg Tablet, 100 MG PO BID Prescribed by: KAROL CEDILLO on 10/18/202111 Metformin HCl 500 Mg Tablet, 250 MG PO TID, (Reported) Metoprolol Tartrate 25 Mg Tablet, 25 MG PO BID, (Reported) Patient Home Medication List Home Medication List Reviewed: Yes (ROLY KAYE MD) Review of Systems Review of Systems Constitutional: see HPI, fever, malaise EENTM: no symptoms reported Respiratory: cough, orthopnea, short of breath Cardiovascular: no symptoms reported Gastrointestinal: nausea Genitourinary: no symptoms reported Musculoskeletal: no symptoms reported Skin: no symptoms reported (ROLY KAYE MD) All Other Systems Reviewed Negative Unless Noted: Yes (ROLY KAYE MD) Past Veivvel-Ohomjh-Vmkjmk Hx Patient Social History Tobacco Use?: No Substance use?: No Alcohol Use?: No Pt feels they are or have been: No (ROLY KAYE MD) Immunizations Up To Date PED Vaccines UTD: No (ROLY KAYE MD) Seasonal Allergies Seasonal Allergies: Yes (ROLY KAYE MD) Past Medical History Surgery/Hospitalization HX: covid + 01/14/21, decreased spo2 Surgeries: Yes Coronary Stent Respiratory: No Cardiac: Yes Coronary Artery Disease, High Cholesterol, Hypertension Neurological: No Reproductive Disorders: No Genitourinary: No Gastrointestinal: No Musculoskeletal: No Endocrine: Yes Diabetes, Non-Insulin dep HEENT: No Cancer: No Psychosocial: No Integumentary: No Blood Disorders: No (ROLY KAYE MD) Family Medical History Cardiovascular disease 19 MOTHER, , Age:60, Onset:Unknown G8 BROTHER, Onset:Unknown Diabetes mellitus 19 MOTHER, , Age:60, Onset:Unknown FH: CABG (coronary artery bypass surgery) 19 MOTHER, , Age:60, Onset:Unknown FH: Crohn's disease G8 SISTER, , Age:42, Onset:Unknown Hypercholesterolemia 19 FATHER, Onset:Unknown Hypertension 19 FATHER, Onset:Unknown G8 BROTHER, Onset:Unknown Physical Exam Vital Signs - First Documented 01/21/21 01/21/21 01/21/21 05:05 05:07 06:32 Temp 37.8 Pulse 105 Resp 33 B/P (MAP) 167/103 (124) Pulse Ox 94 O2 Delivery OxyMask O2 Flow Rate 10.00 FiO2 100 (PRABHU LUEVANO MD) Capillary Refill : (ROLY KAYE MD) Height: 5'10.00" Weight: 223lbs. 0.0oz. 101.543362lq; 27.77 BMI Method:Stated General Appearance: WD/WN, mild distress Eyes: Bilateral Eye Normal Inspection, Bilateral Eye PERRL, Bilateral Eye EOMI HEENT: PERRL/EOMI Neck: full range of motion Respiratory: lungs clear, normal breath sounds, other (Tachypnea) Cardiovascular: tachycardia, other (Normal 2+ radial pulse) Gastrointestinal: normal bowel sounds, non tender, soft Extremities: normal range of motion, non-tender, normal inspection, no pedal edema, no calf tenderness, normal capillary refill Neurologic/Psychiatric: alert, normal mood/affect, oriented x 3 Skin: normal color, warm/dry (ROLY KAYE MD) Focused Exam Lactate Level 01/21/21 05:05: Lactic Acid Level 2.55*H (PRABHU LUEVANO MD) Lactic Acid Level Laboratory Tests Test 01/21/21 05:05 Lactic Acid Level 2.55 MMOL/L (0.50-2.00) *H (PRABHU LUEVANO MD) Procedures/Interventions Suture Size: 4-0 (ROLY KAYE MD) Progress/Results/Core Measures Suspected Sepsis SIRS Temperature: Pulse: Respiratory Rate: Blood Pressure / Mean: (ROLY KAYE MD) Results/Orders Lab Results Laboratory Tests Test 01/21/21 05:05 01/21/21 06:12 Range/Units White Blood Count 14.3 H 4.3-11.0 10^3/uL Red Blood Count 5.91 H 4.30-5.52 10^6/uL Hemoglobin 16.1 13.3-17.7 g/dL Hematocrit 49 40-54 % Mean Corpuscular Volume 83 80-99 fL Mean Corpuscular Hemoglobin 27 25-34 pg Mean Corpuscular Hemoglobin Concent 33 32-36 g/dL Red Cell Distribution Width 12.0 10.0-14.5 % Platelet Count 377 130-400 10^3/uL Mean Platelet Volume 11.0 9.0-12.2 fL Immature Granulocyte % (Auto) 1 % Neutrophils (%) (Auto) 92 H 42-75 % Lymphocytes (%) (Auto) 4 L 12-44 % Monocytes (%) (Auto) 3 0-12 % Eosinophils (%) (Auto) 0 0-10 % Basophils (%) (Auto) 0 0-10 % Neutrophils # (Auto) 13.2 H 1.8-7.8 10^3/uL Lymphocytes # (Auto) 0.6 L 1.0-4.0 10^3/uL Monocytes # (Auto) 0.4 0.0-1.0 10^3/uL Eosinophils # (Auto) 0.0 0.0-0.3 10^3/uL Basophils # (Auto) 0.0 0.0-0.1 10^3/uL Immature Granulocyte # (Auto) 0.2 H 0.0-0.1 10^3/uL Neutrophils % (Manual) 89 % Lymphocytes % (Manual) 4 % Monocytes % (Manual) 3 % Band Neutrophils 4 % Microcytosis SLIGHT Prothrombin Time 13.8 12.2-14.7 SEC INR Comment 1.0 0.8-1.4 Activated Partial Thromboplast Time 28 24-35 SEC Sodium Level 137 135-145 MMOL/L Potassium Level 4.1 3.6-5.0 MMOL/L Chloride Level 99 98-107 MMOL/L Carbon Dioxide Level 23 21-32 MMOL/L Anion Gap 15 H 5-14 MMOL/L Blood Urea Nitrogen 18 7-18 MG/DL Creatinine 1.24 0.60-1.30 MG/DL Estimat Glomerular Filtration Rate 61 BUN/Creatinine Ratio 15 Glucose Level 336 H 70-105 MG/DL Lactic Acid Level 2.55 *H 0.50-2.00 MMOL/L Calcium Level 9.2 8.5-10.1 MG/DL Corrected Calcium 9.6 8.5-10.1 MG/DL Total Bilirubin 0.6 0.1-1.0 MG/DL Aspartate Amino Transf (AST/SGOT) 30 5-34 U/L Alanine Aminotransferase (ALT/SGPT) 20 0-55 U/L Alkaline Phosphatase 83 40-136 U/L C-Reactive Protein High Sensitivity 23.39 H 0.00-0.50 MG/DL Total Protein 7.6 6.4-8.2 GM/DL Albumin 3.5 3.2-4.5 GM/DL Procalcitonin 0.28 H <0.10 NG/ML Blood Gas Puncture Site R RAD Blood Gas Patient Temperature 37.8 Arterial Blood pH 7.45 H 7.37-7.43 Arterial Blood Partial Pressure CO2 32 L 35-45 MMHG Arterial Blood Partial Pressure O2 127 H 79-93 MMHG Arterial Blood HCO3 22 L 23-27 MMOL/L Arterial Blood Total CO2 22.6 21.0-31.0 MMOL/L Arterial Blood Oxygen Saturation 99 94-100 % Arterial Blood Base Excess -1.7 -2.5-2.5 MMOL/L Osmany Test YES-POS Blood Gas Ventilator Setting NO Blood Gas Inspired Oxygen 10L (PRABHU LUEVANO MD) My Orders Orders - PRABHU LUEVANO MD Ceftriaxone (Rocephin) (01/21/21 06:30) Dexamethasone Injection (Decadron Inje (01/21/21 07:15) (PRABHU LUEVANO MD) Medications Given in ED Current Medications Medications Dose Ordered Sig/Tex Route Start Time Stop Time Status Last Admin Dose Admin Acetaminophen 1,000 mg ONCE ONCE PO 01/21/21 06:00 01/21/21 06:01 DC 01/21/21 06:11 1,000 MG Ceftriaxone Sodium 1000 mg/ Sterile Water 10 ml @ 200 mls/hr ONCE ONCE IV 01/21/21 06:30 01/21/21 06:32 DC 01/21/21 06:40 200 MLS/HR Dexamethasone Sodium Phosphate 6 mg ONCE ONCE IV 01/21/21 07:15 01/21/21 07:16 DC 01/21/21 07:20 6 MG (PRABHU LUEVANO MD) Vital Signs/I&O 01/21/21 01/21/21 01/21/21 01/21/21 05:05 05:07 06:11 06:32 Temp 37.8 37.8 Pulse 105 Resp 33 B/P (MAP) 167/103 (124) Pulse Ox 94 94 97 O2 Delivery OxyMask OxyMask Vapotherm O2 Flow Rate 10.00 10.00 35.00 FiO2 100 (PRABHU LUEVANO MD) Vital Signs/I&O Capillary Refill : (ROLY KAYE MD) Progress Note : Time: 07:22 Progress Note Care of this patient was assumed from Dr. Kaye at shift change. Patient has had some tachypnea and respiratory difficulty along with hypoxia. Based on Dr. Kaye's assessment, Vapotherm was initiated. Patient now appears comfortable on Vapotherm. He does not recall receiving any steroids or monoclonal antibody therapies from [facility]. I discussed his case with Dr. Shabazz. We will admit to cardiac stepdown. Because of the appearance of his chest x-ray and leukocytosis, antibiotics are also being initiated starting with Rocephin in the ER. I discussed CODE STATUS with the patient and he wishes to be a full CODE STATUS. We discussed Covid vaccination and his barriers to receiving it. 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 He reports that CT was performed at [facility] yesterday and did not reveal pulmonary embolus. (PRABHU LUEVANO MD) Departure Communication (Admissions) Time/Spoke to Admitting Phy: 07:15 Dr. Shabazz (PRABHU LUEVANO MD) Impression Primary Impression: Pneumonia due to COVID-19 virus Additional Impression: Respiratory failure with hypoxia Qualified Codes: J96.01 - Acute respiratory failure with hypoxia Disposition: ADMITTED INPATIENT Condition: Improved Admissions Decision to Admit Reason: Admit from ER (General) Decision to Admit/Date: Jan 21, 2021 Time/Decision to Admit Time: 06:00 (PRABHU LUEVANO MD) Departure-Patient Inst. Referrals: YENY STEVENS MD (PCP/Family) Primary Care Physician ROLY KAYE MD Jan 21, 2021 05:23 PRABHU LUEVANO MD Jan 21, 2021 07:23
[2021-01-21 05:32] LABS: BASOPHILS % (AUTO) 0 % (0-10); EOSINOPHILS % (AUTO) 0 % (0-10); HEMATOCRIT 49 % (40-54); HEMOGLOBIN 16.1 g/dL (13.3-17.7); LYMPHOCYTES # (AUTO) 0.6 10^3/uL (1.0-4.0); LYMPHOCYTES % (AUTO) 4 % (12-44); MEAN CORPUSCULAR HEMOGLOBIN 27 pg (25-34); MEAN CORPUSCULAR HGB CONC 33 g/dL (32-36); MEAN CORPUSCULAR VOLUME 83 fL (80-99); MONOCYTES # (AUTO) 0.4 10^3/uL (0.0-1.0); MONOCYTES % (AUTO) 3 % (0-12); NEUTROPHILS # (AUTO) 13.2 10^3/uL (1.8-7.8); NEUTROPHILS % (AUTO) 92 % (42-75); PLATELET COUNT 377 10^3/uL (130-400); WHITE BLOOD COUNT 14.3 10^3/uL (4.3-11.0)
[2021-01-21 05:54] LABS: ALBUMIN 3.5 GM/DL (3.2-4.5)
[2021-01-21 05:55] LABS: POTASSIUM 4.1 MMOL/L (3.6-5.0)
[2021-01-21 05:56] LABS: CALCIUM 9.2 MG/DL (8.5-10.1)
[2021-01-21 05:57] LABS: TOTAL PROTEIN 7.6 GM/DL (6.4-8.2)
[2021-01-21 05:59] LABS: BILIRUBIN,TOTAL 0.6 MG/DL (0.1-1.0)
[2021-01-21] MEDS ORDERED: NS IV 1000 ML 1,000 ML IV SCH (06:00)
[2021-01-21] MEDS ORDERED: ACETAMINOPHEN 500 MG TAB (TYLENOL) PO ONE (06:00)
[2021-01-21 06:01] LABS: CREATININE SERUM 1.24 MG/DL (0.60-1.30)
[2021-01-21 06:07] LABS: PROTHROMBIN TIME PATIENT 13.8 SEC (12.2-14.7)
[2021-01-21 06:16] LABS: BAND NEUTROPHILS 4 %; LYMPHOCYTES % (MANUAL) 4 %; MICROCYTOSIS SLIGHT; MONOCYTES % (MANUAL) 3 %; NEUTROPHILS % (MANUAL) 89 %
[2021-01-21 06:27] LABS: ABG BASE EXCESS -1.7 MMOL/L (-2.5-2.5); ABG OXYGEN SATURATION 99 % (94-100); ABG PCO2 32 MMHG (35-45); ABG PH 7.45 (7.37-7.43); ABG PO2 127 MMHG (79-93); ABG TCO2 22.6 MMOL/L (21.0-31.0)
[2021-01-21 06:28] LABS: ALLENS TEST YES-POS; INSPIRED O2 10L; PATIENT TEMP 37.8; VENTILATOR NO
[2021-01-21] MEDS ORDERED: cefTRIAXone 1,000 MG in WATER (STERILE) FOR INJECTION 10 ML IV ONE (06:30)
--- NOTE | 2021-01-21 07:22 | Diagnostic Imaging Report ---
INDICATION: Constipation, shortness of air, congestion. COMPARISON: 08/03/2016 FINDINGS: There has been the development of extensive bilateral infiltrates consistent with nonspecific pneumonia. Heart size is stable. No overt vascular congestion. IMPRESSION: Extensive bilateral infiltrates consistent with pneumonia. Dictated by: Dictated on workstation # [id number]
[2021-01-21] MEDS ORDERED: guaiFENesin SYRUP 100 MG/5 ML 10 ML (ROBITUSSIN SF) PO PRN (10:15)
[2021-01-21] MEDS ORDERED: ONDANSETRON 4 MG/2 ML (SDV) Z0FRAN IV PRN (10:15)
[2021-01-21] MEDS ORDERED: ACETAMINOPHEN 325 MG TABLET PO PRN (10:15)
[2021-01-21] MEDS ORDERED: CATHETER FLUSH 10 ML SYR IV PRN (10:15)
[2021-01-21] MEDS ORDERED: AZITHROMYCIN 500 MG/NS 250 ML IVPB IV ONE ×2 (10:30)
--- NOTE | 2021-01-21 11:35 | Tele-ICU Consult ---
History of Present Illness History of Present Illness Date Seen by Provider: Jan 21, 2021 Time Seen by Provider: 11:05 Date of Admission Patient acknowledged, consented, and participated in this virtual visit which was conducted using real time audio/video. Thank you for asking us to see this patient for respiratory insufficiency and distress due to Covid pna.. HPC: Recent events:Diagnosed last Sunday and d/cd on O2 5LPM from OSH. Developed worsening sx and sats and presented to ER. Unvacc. Patient says he is feeling better PMH:CAD/stents DM HL HTN. SH: No smoking history. 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 FH: CAD, HL. ROS: limited by patient's clinical condition, but none outside resp system. PE: HR 82 NSR BP 165/100 RR 24(better C/T ER). O2 sat 100% on Vapotherm 100%. Also better than in ER. 97 HEENT: No obvious masses, adenopathy or JVD. Chest: clear to auscultation. CV: RRR S1 S2 No murmur or added sounds. Abd: Non-tender. Bowel sounds . : Unremarkable. 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 No obvious focal findings. Extremities: No edema. Capillary refill < 3 seconds. Skin: unremarkable. Results: Elevated WCC 14.3, glucose 336, Lactate 2.55, C-reactive protein. CXR: Extensive B infilts. Outside hospital CTA Chest w no PE per pt. A/P: Respiratory insufficiency/distress/Covid pna: Subjectively better. Available chart/ vitals / labs / Images reviewed. Video assessment done using teleICU camera, rest of exam as per RN. Respiratory: Continue present management with Dex, Azt, Rocephin Albuterol. Consider Lovenox, Monitor for increasing oxygenation needs and/or need for ICU transfer. Critical Care: critically ill patient. Discussed with RN and other bedside health professionals. Asked RN to reach out to eICU if any questions or concerns later. Time spent with patient/family/coordination of care with other health professionals (mins):30 History of Present Illness See free text Allergies and Home Medications Allergies Coded Allergies: No Known Drug Allergies (Unverified , 07/31/16) Home Medications Aspirin 81 Mg Tablet.dr, 81 MG PO DAILY, (Reported) Atorvastatin Calcium 40 Mg Tablet, 40 MG PO DAILY, (Reported) Clopidogrel Bisulfate 75 Mg Tablet, 75 MG PO DAILY, (Reported) Doxycycline Hyclate 100 Mg Tablet, 100 MG PO BID Prescribed by: KAROL CEDILLO on 10/18/202111 Metformin HCl 500 Mg Tablet, 250 MG PO TID, (Reported) Metoprolol Tartrate 25 Mg Tablet, 25 MG PO BID, (Reported) Past Medical/Social/Family Hx Patient Social History Tobacco Use?: No Smoking Status: Never a Smoker Substance use?: No Alcohol Use?: No Pt stated abuse/neglect: No Immunizations Up To Date Influenza Vaccine Up-to-Date: Yes; Up-to-Date Tetanus Booster (TDap): Less Than 5 Years Hepatitis A: Yes Hepatitis B: Yes TB Skin Test: Negative Current Status Advance Directives: No Communicates: Verbally Primary Language: Japanese Preferred Spoken Language: Japanese Is interpretation needed?: No Sensory deficits: Vision impairment Implanted or Applied Medical D: None Review of Systems All Other Systems Reviewed Negative Unless Noted: Yes Sepsis Event Evaluation Sepsis Stage: Ruled Out Height, Weight, BMI Height: 5'10.00" Weight: 223lbs. 0.0oz. 101.249694wc; 25.30 BMI Method:Stated Exam Exam Patient acknowledged, consented, and participated in this virtual visit which was conducted using real time audio/video Vital Signs Date Time Temp Pulse Resp B/P (MAP) Pulse Ox O2 Delivery O2 Flow Rate FiO2 01/21/21 09:30 37.8 82 22 139/89 (124) 97 Vapotherm 35.00 01/21/21 06:32 97 Vapotherm 35.00 100 01/21/21 06:11 37.8 01/21/21 05:07 37.8 105 33 167/103 (124) 94 OxyMask 10.00 01/21/21 05:05 94 OxyMask 10.00 I & O 01/21/21 07:00 Intake Total 10 ml Balance 10 ml Height & Weight Height: 5'10.00" Weight: 223lbs. 0.0oz. 101.993383rt; 25.30 BMI Method:Stated Capillary Refill: Less Than 3 Seconds Gastrointestinal: normal bowel sounds, non tender, soft Results Lab Laboratory Tests 01/21/21 05:05 Assessment/Plan Assessment/Plan See free text. Critical Care: Critically Ill Patient Time spent on discussion(mins): 0 Diagnosis/Problems Problems/Diagonsis (1) Pneumonia due to COVID-19 virus Status: Acute (2) Respiratory failure with hypoxia Status: Acute Qualifiers: Qualified Codes: J96.01 - Acute respiratory failure with hypoxia JEAN PAUL SANDOVAL MD Jan 21, 2021 11:35
[2021-01-21 11:46] VITALS: BP 139/89
[2021-01-21 11:48] VITALS: BP 166/99
[2021-01-21] MEDS: LACTATED RINGERS 1,000 ML IV SCH (12:48)
[2021-01-21] MEDS ORDERED: METF-399 PO (13:54)
[2021-01-21] MEDS ORDERED: SEMA0.25 INJ (13:54)
--- NOTE | 2021-01-21 14:39 | History & Physical-Hospitalist ---
History of Present Illness HPI/Chief Complaint Pt is a 55yoCM with a PMH of CAD, HTN, HLD, and NIDDMII who presented to the ER due to shortness of breath. He started to feel poorly on 01/12 with a cough and was tested for COVID on 01/13 and was negative. He then continued to worsen and was at work but was unable to work due to shortness of breath. He tested again that day and was positive for COVID. He is unvaccinated for COVID. He was seen (possibly admitted?) at [facility] yesterday and was discharged home with 5lpm of oxygen. He continued to worsen and was checking his sats at home and they got down to 79%. He states it took him quite a qwhile to recover to the 80s so decived to seek evaluation in the ER. He was hypoxic here as well and placed on Vapotherm. He is being admitted for furhter management. He has not received MAB. Source: patient Date Seen 01/21/21 Time Seen by a Provider: 14:34 Attending Physician Adal Shabazz MD PCP Simón Albright MD Referring Physician Date of Admission Jan 21, 2021 at 07:43 Home Medications & Allergies Home Medications Reviewed patient Home Medication Reconciliation performed by pharmacy medication reconciliations anaesthetic technician and/or nursing. Patients Allergies have been reviewed. Allergies Allergies Coded Allergies No Known Drug Allergies (Unverified07/31/16) Past Iqfguih-Imakwf-Hvwawf Hx Patient Social History Employed/Student: employed Tobacco Use?: No Smoking Status: Never a Smoker Substance use?: No Alcohol Use?: No Pt feels they are or have been: No Immunizations Up To Date First/Initial COVID19 Vaccinat: HAS NOT RECEIVED Tetanus Booster (TDap): Less Than 5 Years Hepatitis A: Yes Hepatitis B: Yes PED Vaccines UTD: No Seasonal Allergies Seasonal Allergies: Yes Current Status Advance Directives: No Communicates: Verbally Primary Language: Bahraini Preferred Spoken Language: Bahraini Is interpretation needed?: No Sensory deficits: Vision impairment Implanted or Applied Medical D: None Past Medical History Surgeries: Coronary Stent Coronary Artery Disease, High Cholesterol, Hypertension Diabetes, Non-Insulin dep Blood Disorders: No Family Medical History Reviewed Nursing Family Hx Cardiovascular disease 19 MOTHER, , Age:60, Onset:Unknown G8 BROTHER, Onset:Unknown Diabetes mellitus 19 MOTHER, , Age:60, Onset:Unknown FH: CABG (coronary artery bypass surgery) 19 MOTHER, , Age:60, Onset:Unknown FH: Crohn's disease G8 SISTER, , Age:42, Onset:Unknown Hypercholesterolemia 19 FATHER, Onset:Unknown Hypertension 19 FATHER, Onset:Unknown G8 BROTHER, Onset:Unknown Review of Systems Constitutional: fever, malaise, weakness EENTM: no symptoms reported Respiratory: cough, dyspnea on exertion, short of breath Cardiovascular: No chest pain, No edema; Hx of Intervention; No palpitations Gastrointestinal: No diarrhea; loss of appetite (and taste and smell), nausea, vomiting Genitourinary: no symptoms reported Musculoskeletal: no symptoms reported Skin: no symptoms reported Psychiatric/Neurological: No Symptoms Reported Physical Exam Physical Exam Vital Signs Vital Signs - First Documented 01/21/21 01/21/21 01/21/21 05:05 05:07 06:32 Temp 37.8 Pulse 105 Resp 33 B/P (MAP) 167/103 (124) Pulse Ox 94 O2 Delivery OxyMask O2 Flow Rate 10.00 FiO2 100 Capillary Refill : Less Than 3 Seconds Height, Weight, BMI Height: 5'10.00" Weight: 223lbs. 0.0oz. 101.523636ic; 25.30 BMI Method:Stated General Appearance: No Apparent Distress, WD/WN HEENT: PERRL/EOMI, Moist Mucous Membranes; No Scleral Icterus (L), No Scleral Icterus (R) Neck: Normal Inspection, Supple Respiratory: No Accessory Muscle Use, Decreased Breath Sounds; No Rhonci; Other (On Vapotherm 30lpm at 90%) Cardiovascular: Regular Rate, Rhythm, Normal Peripheral Pulses Gastrointestinal: Normal Bowel Sounds, Non Tender, Soft Extremity: Normal Capillary Refill, No Calf Tenderness, No Pedal Edema Neurologic/Psychiatric: Alert, Oriented x3, Normal Mood/Affect Skin: Normal Color, Warm/Dry Results Results/Procedures Labs Laboratory Tests 01/21/21 05:05 Patient resulted labs reviewed. Imaging: Reviewed Imaging Report [facility] [place], [place] NAME: ALYBILL [facility] REC#: [id number] PT STATUS: ADM IN : 1965 PHYSICIAN: ROLY KAYE MD ADMIT DATE: 01/21/21/[facility] Signed Date of Exam:01/21/21 CHEST 1 VIEW, AP/PA ONLY INDICATION: Constipation, shortness of air, congestion. COMPARISON: 08/03/2016 FINDINGS: There has been the development of extensive bilateral infiltrates consistent with nonspecific pneumonia. Heart size is stable. No overt vascular congestion. IMPRESSION: Extensive bilateral infiltrates consistent with pneumonia. Dictated by: Dictated on workstation # [id number] Dict: 01/21/21719 Trans: 01/21/21 09 [facility] [id number] Interpreted by: RADHA CHAVEZ Electronically signed by: RADHA CHAVEZ 01/21/2101 Assessment/Plan Admission Diagnosis Acute Hypoxic Respiratory Failure Admission Status: Inpatient Order (span 2 midnights) Reason for Inpatient Admission: see below Assessment and Plan Acute Hypoxic Respiratory Failure due to COVID19 Continue on Vapotherm Wean as able Pulm consulted Continue decadron Consent to convalescent plasma Due to high oxygen requirement Remdesivir not indicated, agreeable to Actemra MAT protocol IS Lovenox Procal up slightly, continue IV abx and trend Procal Diagnosis/Problems Diagnosis/Problems (1) Respiratory failure with hypoxia Status: Acute Qualifiers: Chronicity: acute Qualified Codes: J96.01 - Acute respiratory failure with hypoxia (2) Pneumonia due to COVID-19 virus Status: Acute (3) CAD (coronary artery disease) Status: Chronic Qualifiers: Coronary Disease-Associated Artery/Lesion type: [place] artery [place] vs. 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
[2021-01-21] MEDS: RT-ALBUTEROL HFA 8.5 GM INHALER IH SCH ×2 (14:40→21:21)
[2021-01-21] MEDS ORDERED: NS IV 500 ML 500 ML IV SCH (14:45)
[2021-01-21] MEDS ORDERED: guaiFENesin/DM (ROBITUSSIN DM) 10 ML UDC PO PRN (14:45)
[2021-01-21] MEDS ORDERED: BENZONATATE 100 MG (TESSALON) CAPSULE PO PRN (14:45)
[2021-01-21] MEDS ORDERED: TOCILIZUMAB INJECTION (NON-FOR 600 MG in NS (IVPB) 70 ML IV ONE (14:45)
[2021-01-21] MEDS: ENOXAPARIN 40 MG/0.4 ML (LOVENOX) SYR SQ SCH (15:35)
[2021-01-21] MEDS: inSUlin ASPART (NovoLOG) 1 UNIT/0.01 ML (CHARGE PER UNIT) SC SCH ×2 (15:37→21:13)
[2021-01-21 15:44] VITALS: BP 149/98
[2021-01-21 21:15] VITALS: BP 144/94
[2021-01-21 21:45] VITALS: BP 144/94
[2021-01-21 23:37] VITALS: BP 149/95
[2021-01-22] MEDS: RT-ALBUTEROL HFA 8.5 GM INHALER IH SCH ×4 (03:35→19:09)
[2021-01-22 03:49] VITALS: BP 167/99
[2021-01-22 05:04] LABS: HEMATOCRIT 43 % (40-54); HEMOGLOBIN 14.1 g/dL (13.3-17.7); MEAN CORPUSCULAR HEMOGLOBIN 27 pg (25-34); MEAN CORPUSCULAR HGB CONC 33 g/dL (32-36); MEAN CORPUSCULAR VOLUME 84 fL (80-99); MEAN PLATELET VOLUME 11.4 fL (9.0-12.2); PLATELET COUNT 387 10^3/uL (130-400)
[2021-01-22 05:19] LABS: POTASSIUM 4.3 MMOL/L (3.6-5.0)
[2021-01-22 05:20] LABS: CALCIUM 8.6 MG/DL (8.5-10.1)
[2021-01-22 05:25] LABS: CREATININE SERUM 0.83 MG/DL (0.60-1.30)
[2021-01-22] MEDS: LACTATED RINGERS 1,000 ML IV SCH ×2 (06:40→11:47)
[2021-01-22] MEDS: inSUlin ASPART (NovoLOG) 1 UNIT/0.01 ML (CHARGE PER UNIT) SC SCH ×4 (06:41→20:44)
[2021-01-22 08:38] VITALS: BP 139/97
[2021-01-22] MEDS: AZITHROMYCIN 250 MG/NS 250 ML IVPB IV SCH ×2 (08:54)
[2021-01-22] MEDS: cefTRIAXone 1,000 MG/SWFI 10 ML IV PUSH IV SCH ×2 (08:54)
--- NOTE | 2021-01-22 11:24 | Progress Note - Hospitalist ---
Subjective HPI/CC On Admission Date Seen by Provider: Jan 22, 2021 Time Seen by Provider: 11:17 Pt is a 55yoCM with a PMH of CAD, HTN, HLD, and NIDDMII who presented to the ER due to shortness of breath. He started to feel poorly on 01/12 with a cough and was tested for COVID on 01/13 and was negative. He then continued to worsen and was at work but was unable to work due to shortness of breath. He tested again that day and was positive for COVID. He is unvaccinated for COVID. He was seen (possibly admitted?) at [facility] yesterday and was discharged home with 5lpm of oxygen. He continued to worsen and was checking his sats at home and they got down to 79%. He states it took him quite a qwhile to recover to the 80s so decived to seek evaluation in the ER. He was hypoxic here as well and placed on Vapotherm. He is being admitted for furhter management. He has not received MAB. Subjective/Events-last exam Pt reports feeling ok today. He's up on Vapotherm today. We discussed the pote ntial progression of his disease. He is ok with intubation if needed. Focused Exam Lactate Level 01/21/21 05:05: Lactic Acid Level 2.55*H 01/21/21 07:45: Lactic Acid Level 1.40 Objective Exam Vital Signs Vital Signs Date Time Temp Pulse Resp B/P (MAP) Pulse Ox O2 Delivery O2 Flow Rate FiO2 01/22/21 09:55 94 Vapotherm 30.00 90 01/22/21 08:38 36.6 71 22 139/97 (111) Capillary Refill : Less Than 3 Seconds General Appearance: No Apparent Distress, Chronically ill Respiratory: Lungs Clear, No Respiratory Distress Cardiovascular: Regular Rate, Rhythm, No Murmur Neurologic/Psychiatric: Alert, Oriented x3 Results/Procedures Lab Laboratory Tests 01/22/21 04:31 Patient resulted labs reviewed. Imaging: Reviewed Imaging Report Assessment/Plan Assessment and Plan Assess & Plan/Chief Complaint Acute Hypoxic Respiratory Failure due to COVID19 Continue on Vapotherm, currently on max settings low threshold for transfer to ICU if worsening Pulm consulted Continue decadron Consent to convalescent plasma Due to high oxygen requirement Remdesivir not indicated, but did received Acemtra 01/21 MAT protocol IS Lovenox Procal down slightly today DVt ppx: Lovenox Diagnosis/Problems Diagnosis/Problems (1) Respiratory failure with hypoxia Status: Acute Qualifiers: Chronicity: acute Qualified Codes: J96.01 - Acute respiratory failure with hypoxia (2) Pneumonia due to COVID-19 virus Status: Acute (3) CAD (coronary artery disease) Status: Chronic Qualifiers: Coronary Disease-Associated Artery/Lesion type: [place] artery [place] vs. transplanted heart: [place] heart Associated angina: without angina Qualified Codes: I25.10 - Atherosclerotic heart disease of [place] coronary artery without angina pectoris (4) Essential (primary) hypertension Status: Chronic (5) Diabetes mellitus Status: Chronic Qualifiers: Diabetes mellitus type: type 2 Diabetes mellitus assisted insulin use: without assisted use Diabetes mellitus complication status: without complication Qualified Codes: E11.9 - Type 2 diabetes mellitus without complications ADAL LAN MD Jan 22, 2021 11:24
[2021-01-22 12:24] VITALS: BP 119/82
[2021-01-22 12:34] VITALS: BP 123/69
[2021-01-22] MEDS: ENOXAPARIN 40 MG/0.4 ML (LOVENOX) SYR SQ SCH (15:22)
[2021-01-22 16:28] VITALS: BP 145/86
[2021-01-23] VITALS (7 sets, daily range): BP systolic 119–152; BP diastolic 82–97
[2021-01-23] MEDS: RT-ALBUTEROL HFA 8.5 GM INHALER IH PRN ×2 (02:40→22:46)
[2021-01-23] MEDS: RT-ALBUTEROL HFA 8.5 GM INHALER IH SCH ×3 (02:41→14:47)
[2021-01-23 04:58] LABS: HEMATOCRIT 42 % (40-54); HEMOGLOBIN 13.9 g/dL (13.3-17.7); MEAN CORPUSCULAR HEMOGLOBIN 28 pg (25-34); MEAN CORPUSCULAR HGB CONC 33 g/dL (32-36); MEAN CORPUSCULAR VOLUME 84 fL (80-99); PLATELET COUNT 435 10^3/uL (130-400); WHITE BLOOD COUNT 10.7 10^3/uL (4.3-11.0)
[2021-01-23 05:26] LABS: CREATININE SERUM 0.83 MG/DL (0.60-1.30); POTASSIUM 4.3 MMOL/L (3.6-5.0)
[2021-01-23 05:27] LABS: CALCIUM 8.1 MG/DL (8.5-10.1)
[2021-01-23] MEDS: inSUlin ASPART (NovoLOG) 1 UNIT/0.01 ML (CHARGE PER UNIT) SC SCH ×4 (06:38→22:25)
--- NOTE | 2021-01-23 07:39 | Diagnostic Imaging Report ---
EXAMINATION: Chest 1 view HISTORY: COVID 19 pneumonia COMPARISON: 01/21/2021 FINDINGS: There has been a slight increase of now moderate COVID 19 pneumonia. No pleural effusion or pneumothorax. Heart size is normal. IMPRESSION: 1. Slight increase in now moderate COVID 19 pneumonia. Dictated by: Dictated on workstation # [id number]
[2021-01-23] MEDS: cefTRIAXone 1,000 MG/SWFI 10 ML IV PUSH IV SCH ×2 (08:37)
--- NOTE | 2021-01-23 09:44 | Progress Note - Hospitalist ---
Subjective HPI/CC On Admission Date Seen by Provider: Jan 23, 2021 Time Seen by Provider: 09:42 Pt is a 55yoCM with a PMH of CAD, HTN, HLD, and NIDDMII who presented to the ER due to shortness of breath. He started to feel poorly on 01/12 with a cough and was tested for COVID on 01/13 and was negative. He then continued to worsen and was at work but was unable to work due to shortness of breath. He tested again that day and was positive for COVID. He is unvaccinated for COVID. He was seen (possibly admitted?) at [facility] yesterday and was discharged home with 5lpm of oxygen. He continued to worsen and was checking his sats at home and they got down to 79%. He states it took him quite a qwhile to recover to the 80s so decived to seek evaluation in the ER. He was hypoxic here as well and placed on Vapotherm. He is being admitted for furhter management. He has not received MAB. Subjective/Events-last exam Pt reports feeling ok today. Was lying on his side. Encouraged continuing this or proning if able. Focused Exam Lactate Level 01/21/21 05:05: Lactic Acid Level 2.55*H 01/21/21 07:45: Lactic Acid Level 1.40 Objective Exam Vital Signs Vital Signs Date Time Temp Pulse Resp B/P (MAP) Pulse Ox O2 Delivery O2 Flow Rate FiO2 01/23/21 09:23 Vapotherm 30.00 60.00 01/23/21 08:08 36.3 72 14 123/87 (99) 98 01/23/21 07:11 70 Capillary Refill : Less Than 3 Seconds General Appearance: No Apparent Distress, WD/WN Respiratory: No Accessory Muscle Use; No Crackles; Decreased Breath Sounds; No Rhonci; Other (on vapotherm 30lpm at 60%) Cardiovascular: Regular Rate, Rhythm, No Murmur Gastrointestinal: Normal Bowel Sounds, Soft Neurologic/Psychiatric: Alert, Oriented x3 Results/Procedures Lab Laboratory Tests 01/23/21 04:22 Patient resulted labs reviewed. Imaging: Reviewed Imaging Report Assessment/Plan Assessment and Plan Assess & Plan/Chief Complaint Acute Hypoxic Respiratory Failure due to COVID19 HTN NIDDMII CAD Continue on Vapotherm, currently on max settings low threshold for transfer to ICU if worsening Pulm consulted Continue decadron Got convalescent plasma on 01/21 Due to high oxygen requirement Remdesivir not indicated, but did received Acemtra 01/21 MAT protocol IS Lovenox Procal down slightly today SSI DVt ppx: Lovenox Diagnosis/Problems Diagnosis/Problems (1) Respiratory failure with hypoxia Status: Acute Qualifiers: Chronicity: acute Qualified Codes: J96.01 - Acute respiratory failure with hypoxia (2) Pneumonia due to COVID-19 virus Status: Acute (3) CAD (coronary artery disease) Status: Chronic Qualifiers: Coronary Disease-Associated Artery/Lesion type: [place] artery [place] vs. 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
[2021-01-23] MEDS: AZITHROMYCIN 250 MG/NS 250 ML IVPB IV SCH ×2 (10:09)
[2021-01-23] MEDS: ENOXAPARIN 40 MG/0.4 ML (LOVENOX) SYR SQ SCH (16:36)
[2021-01-23] MEDS: LACTATED RINGERS 1,000 ML IV SCH (22:06)
[2021-01-24] VITALS: BP 132/89
[2021-01-24 04:00] VITALS: BP 149/90
[2021-01-24 04:55] LABS: HEMATOCRIT 45 % (40-54); HEMOGLOBIN 14.6 g/dL (13.3-17.7); MEAN CORPUSCULAR HEMOGLOBIN 28 pg (25-34); MEAN CORPUSCULAR HGB CONC 33 g/dL (32-36); MEAN CORPUSCULAR VOLUME 84 fL (80-99); MEAN PLATELET VOLUME 10.8 fL (9.0-12.2); PLATELET COUNT 430 10^3/uL (130-400); WHITE BLOOD COUNT 10.4 10^3/uL (4.3-11.0)
[2021-01-24 05:19] LABS: POTASSIUM 4.1 MMOL/L (3.6-5.0)
[2021-01-24 05:20] LABS: CALCIUM 8.4 MG/DL (8.5-10.1)
[2021-01-24 05:24] LABS: CREATININE SERUM 0.86 MG/DL (0.60-1.30)
[2021-01-24] MEDS: inSUlin ASPART (NovoLOG) 1 UNIT/0.01 ML (CHARGE PER UNIT) SC SCH ×6 (06:15→21:01)
[2021-01-24 07:41] VITALS: BP 140/84
[2021-01-24] MEDS: AZITHROMYCIN 250 MG/NS 250 ML IVPB IV SCH ×2 (08:31)
[2021-01-24] MEDS: cefTRIAXone 1,000 MG/SWFI 10 ML IV PUSH IV SCH ×2 (08:31)
[2021-01-24] MEDS: RT-ALBUTEROL HFA 8.5 GM INHALER IH SCH ×3 (09:22→18:06)
--- NOTE | 2021-01-24 10:25 | Progress Note - Hospitalist ---
Subjective HPI/CC On Admission Date Seen by Provider: Jan 24, 2021 Time Seen by Provider: 10:30 Pt is a 55yoCM with a PMH of CAD, HTN, HLD, and NIDDMII who presented to the ER due to shortness of breath. He started to feel poorly on 01/12 with a cough and was tested for COVID on 01/13 and was negative. He then continued to worsen and was at work but was unable to work due to shortness of breath. He tested again that day and was positive for COVID. He is unvaccinated for COVID. He was seen (possibly admitted?) at [facility] yesterday and was discharged home with 5lpm of oxygen. He continued to worsen and was checking his sats at home and they got down to 79%. He states it took him quite a qwhile to recover to the 80s so decived to seek evaluation in the ER. He was hypoxic here as well and placed on Vapotherm. He is being admitted for furhter management. He has not received MAB. Subjective/Events-last exam Pt doing fairly well but pulmonology will be consulted Admitted on January 21, has a hx of HTN, DM and CAD maintained on Plavix, Aspirin, and Metformin. We will place him on Lovenox, Decadron and heplock his IV fluid. Vapotherm is at 25 liters at 50%. CT angiogram will be obtained also. Overall pt remains stable. Review of Systems General: Fatigue Pulmonary: Dyspnea Objective Exam Vital Signs Vital Signs Date Time Temp Pulse Resp B/P (MAP) Pulse Ox O2 Delivery O2 Flow Rate FiO2 01/25/21 04:21 64 15 139/94 (109) 94 Vapotherm 30.00 60.00 01/25/21 04:20 36.4 01/25/21 02:36 60 Capillary Refill : Less Than 3 Seconds General Appearance: WD/WN, Anxious, Mild Distress Respiratory: No Accessory Muscle Use, Accessory Muscle Use, Crackles, Decreased Breath Sounds Cardiovascular: Normal Peripheral Pulses, Tachycardia Neurologic/Psychiatric: Alert, Oriented x3 Results/Procedures Lab Laboratory Tests 01/25/21 03:50 Patient resulted labs reviewed. Imaging: Reviewed Imaging Report Assessment/Plan Assessment and Plan Assess & Plan/Chief Complaint Assessment: Acute Hypoxic Respiratory Failure due to COVID19 HTN NIDDMII CAD Continue on Vapotherm, currently on max settings low threshold for transfer to ICU if worsening Pulm consulted Continue decadron Got convalescent plasma on 01/21 Due to high oxygen requirement Remdesivir not indicated, but did received Acemtra 01/21 MAT protocol IS Lovenox Procal down slightly today SSI DVt ppx: Lovenox Plan: Pulmonology consult Monitor closely for intubation requirement CHEYENNE CUNHA DO Jan 24, 2021 10:25
[2021-01-24] MEDS ORDERED: inSUlin (REGULAR) HUMAN 1 UNIT/0.01 ML (CHARGE PER UNIT) SC PRN (10:30)
[2021-01-24 11:44] LABS: ALBUMIN 2.7 GM/DL (3.2-4.5); BILIRUBIN,DIRECT 0.2 MG/DL (0.0-0.3); BILIRUBIN,INDIRECT 0.3 MG/DL; BILIRUBIN,TOTAL 0.5 MG/DL (0.1-1.0); CALCIUM 8.2 MG/DL (8.5-10.1); CREATININE SERUM 0.82 MG/DL (0.60-1.30); POTASSIUM 4.5 MMOL/L (3.6-5.0)
[2021-01-24 11:51] VITALS: BP 127/75
[2021-01-24 12:07] LABS: ABG BASE EXCESS 3.4 MMOL/L (-2.5-2.5); ABG OXYGEN SATURATION 94 % (94-100); ABG PCO2 40 MMHG (35-45); ABG PH 7.45 (7.37-7.43); ABG PO2 67 MMHG (79-93); ABG TCO2 28.4 MMOL/L (21.0-31.0)
[2021-01-24 12:08] LABS: INSPIRED O2 50%; PATIENT TEMP 36.7; VENTILATOR NO
[2021-01-24] MEDS: SENNA W/DOCUSATE (SENOKOT S) TABLET PO SCH ×2 (12:50→20:48)
[2021-01-24] MEDS: polyethylene glycoL POWDER 17 GM (MIRALAX) PACK PO SCH ×2 (12:50→20:48)
[2021-01-24] MEDS: LACTULOSE SYRUP 10GM/15ML (ENULOSE) 30ML UDC PO SCH ×2 (12:50→20:48)
--- NOTE | 2021-01-24 12:59 | Diagnostic Imaging Report ---
Indication: Respiratory distress. Positive for COVID. Upright portable chest shows normal heart size and vascularity. There are bilateral infiltrates similar to the 01/23/2021 study. There is no effusion or pneumothorax. Impression: Stable bilateral infiltrates. Dictated by: Dictated on workstation # [id number]
[2021-01-24] MEDS ORDERED: CATHETER FLUSH 10 ML SYR IV PRN (13:00)
[2021-01-24] MEDS ORDERED: HOLD METFORMIN - RECEIVED CONTRAST 20 ML VIAL IV SCH (13:00)
[2021-01-24] MEDS ORDERED: IOHEXOL 350 MG/ML 100 ML (OMNIPAQUE 350) VIAL IV ONE (13:00)
[2021-01-24] MEDS ORDERED: NS 100 ML (IVPB) BAG IV ONE (13:00)
[2021-01-24 16:00] VITALS: BP 136/92
--- NOTE | 2021-01-24 16:10 | Diagnostic Imaging Report ---
INDICATION: Hypoxia. TECHNIQUE: Multiple contiguous axial images were obtained through the chest after uneventful bolus administration of intravenous contrast. 3D reconstructed CTA MIP acquisitions were also performed. Auto Exposure Controls were utilized during the CT exam to meet ALARA standards for radiation dose reduction. COMPARISON: There is no prior chest CTA for comparison. FINDINGS: The pulmonary parenchymal vessels are well-opacified with no CT evidence of pulmonary emboli. There is no evidence of aortic dissection or aneurysm. There are coronary artery calcifications. There are no enlarged mediastinal or hilar nodes. There are no enlarged axillary nodes or chest wall lesions. There is no pleural or pericardial fluid. The visualized portions of the upper abdomen are unremarkable. The lung parenchymal windows demonstrate patchy groundglass and alveolar infiltrates throughout both lungs, most prominent in the lower lobes, compatible with Covid pneumonia. IMPRESSION: Diffuse infiltrates are present, most prominent in the lower lobes, compatible with Covid pneumonia. No pneumothorax or pleural fluid. No evidence of pulmonary emboli or aortic dissection. Some coronary calcifications are present. The report was faxed to Infection Control by alea@4:09 PM. Dictated by: Dictated on workstation # [id number]
[2021-01-24] MEDS: ENOXAPARIN 40 MG/0.4 ML (LOVENOX) SYR SQ SCH (16:20)
[2021-01-24 20:00] VITALS: BP 127/95
[2021-01-25] VITALS (9 sets, daily range): BP systolic 103–147; BP diastolic 69–98
[2021-01-25] MEDS: RT-ALBUTEROL HFA 8.5 GM INHALER IH PRN (02:35)
[2021-01-25] MEDS: RT-ALBUTEROL HFA 8.5 GM INHALER IH SCH ×4 (02:36→20:51)
[2021-01-25 04:26] LABS: HEMATOCRIT 44 % (40-54); HEMOGLOBIN 14.6 g/dL (13.3-17.7); MEAN CORPUSCULAR HEMOGLOBIN 28 pg (25-34); MEAN CORPUSCULAR HGB CONC 34 g/dL (32-36); MEAN CORPUSCULAR VOLUME 83 fL (80-99); MEAN PLATELET VOLUME 10.4 fL (9.0-12.2); PLATELET COUNT 481 10^3/uL (130-400); WHITE BLOOD COUNT 8.7 10^3/uL (4.3-11.0)
[2021-01-25 05:02] LABS: POTASSIUM 4.1 MMOL/L (3.6-5.0)
[2021-01-25 05:03] LABS: CALCIUM 8.4 MG/DL (8.5-10.1)
[2021-01-25] MEDS: inSUlin ASPART (NovoLOG) 1 UNIT/0.01 ML (CHARGE PER UNIT) SC SCH ×7 (05:07→20:20)
[2021-01-25 05:08] LABS: CREATININE SERUM 0.83 MG/DL (0.60-1.30)
[2021-01-25 07:02] LABS: ABG BASE EXCESS 5.2 MMOL/L (-2.5-2.5); ABG OXYGEN SATURATION 96 % (94-100); ABG PCO2 42 MMHG (35-45); ABG PH 7.45 (7.37-7.43); ABG PO2 80 MMHG (79-93); ABG TCO2 30.4 MMOL/L (21.0-31.0)
[2021-01-25 07:04] LABS: ALLENS TEST POSITIVE; INSPIRED O2 35 L; PATIENT TEMP 37; VENTILATOR NO
[2021-01-25 07:48] LABS: BASOPHILS % (AUTO) 0 % (0-10); EOSINOPHILS % (AUTO) 0 % (0-10); LYMPHOCYTES # (AUTO) 1.2 10^3/uL (1.0-4.0); LYMPHOCYTES % (AUTO) 14 % (12-44); MONOCYTES # (AUTO) 0.5 10^3/uL (0.0-1.0); MONOCYTES % (AUTO) 6 % (0-12); NEUTROPHILS # (AUTO) 6.6 10^3/uL (1.8-7.8); NEUTROPHILS % (AUTO) 78 % (42-75)
--- NOTE | 2021-01-25 07:51 | Diagnostic Imaging Report ---
INDICATION: Pneumonia. Comparison made with prior examination of 01/24/2021. FINDINGS: Heart size normal. There is some venous congestion. There are bibasilar infiltrates. No pleural effusion or pneumothorax. Mediastinum is unremarkable. IMPRESSION: Bibasilar pulmonary infiltrates. Mild central pulmonary venous congestion. Dictated by: Dictated on workstation # [id number]
[2021-01-25 08:03] LABS: ALBUMIN 2.7 GM/DL (3.2-4.5); BILIRUBIN,TOTAL 0.5 MG/DL (0.1-1.0); TOTAL PROTEIN 5.6 GM/DL (6.4-8.2)
[2021-01-25] MEDS: AZITHROMYCIN 250 MG/NS 250 ML IVPB IV SCH ×2 (08:04)
[2021-01-25] MEDS: cefTRIAXone 1,000 MG/SWFI 10 ML IV PUSH IV SCH ×2 (08:08)
[2021-01-25] MEDS: polyethylene glycoL POWDER 17 GM (MIRALAX) PACK PO SCH ×2 (08:09→20:15)
[2021-01-25] MEDS: LACTULOSE SYRUP 10GM/15ML (ENULOSE) 30ML UDC PO SCH ×2 (08:09→20:15)
[2021-01-25] MEDS: SENNA W/DOCUSATE (SENOKOT S) TABLET PO SCH ×2 (08:10→20:15)
--- NOTE | 2021-01-25 10:51 | Tele-ICU Progress Note ---
Subjective Date Seen by a Provider: Jan 25, 2021 Time Seen by a Provider: 10:25 Subjective/Events-last exam Patient acknowledged, consented, and participated in this virtual visit which was conducted using real time audio/video. Thank you for asking us to see this patient for follow up of initial consult 01/21 for respiratory insufficiency and distress due to Covid pna.. HPC: Recent events: Nothing overnight. Pt feels much better. PE: VSS O2 sat 94%on 35L 65% 0n Vapotherm HEENT: No obvious masses, adenopathy or JVD. Chest: clear to auscultation. CV: RRR S1 S2 No murmur or added sounds. Abd: Non-tender. Bowel sounds . : Unremarkable. Alonzo . DOULA/psychiatric: Alert and oriented, grossly intact. No obvious focal findings. Extremities: No edema. Capillary refill < 3 seconds. Skin: unremarkable. Results: Elevated BG 302, Albumin 2.7. WCC decreased to 8.7. CXR w B infilts. A/P: Respiratory insufficiency/distress: Cont Albuterol, Rocephin, Dex. Doing better. Available chart/ vitals / labs / Images reviewed. Video assessment done using teleICU camera, rest of exam as per RN. Monitor for increasing oxygenation needs and/or need for ICU transfer. Discussed with RN. Asked RN to reach out to eICU if any questions or concerns later. Time spent with patient//coordination of care with other health professionals (mins): 15 Sepsis Event Evaluation Sepsis Stage: Ruled Out Height, Weight, BMI Height: 5'10.00" Weight: 223lbs. 0.0oz. 101.354075bz; 25.30 BMI Method:Stated Focused Exam Sepsis Stage: Ruled Out Exam Exam Patient acknowledged, consented, and participated in this virtual visit which was conducted using real time audio/video Vital Signs Date Time Temp Pulse Resp B/P (MAP) Pulse Ox O2 Delivery O2 Flow Rate FiO2 01/25/21 08:00 95 Vapotherm 30.00 60 01/25/21 07:47 36.5 72 24 122/85 (97) 92 01/25/21 07:01 96 Vapotherm 35.00 65 01/25/21 04:21 64 15 139/94 (109) 94 Vapotherm 30.00 60.00 01/25/21 04:20 36.4 67 20 139/94 (109) 96 Vapotherm 30.00 60.00 01/25/21 02:36 96 Vapotherm 30.00 60 01/25/21 01:15 36.0 63 94 01/25/21 00:00 63 16 130/76 (94) 94 Vapotherm 25.00 50.00 01/24/21 22:46 89 Vapotherm 30.00 55 01/24/21 20:00 78 16 127/95 (106) 92 Vapotherm 25.00 50.00 01/24/21 20:00 95 Vapotherm 30.00 60 01/24/21 18:06 90 Vapotherm 30.00 55 01/24/21 16:00 36.0 79 24 136/92 (107) 90 Vapotherm 25.00 50.00 01/24/21 11:51 35.9 66 24 127/75 (92) 91 Vapotherm 25.00 50.00 I & O 01/25/21 07:00 Intake Total 1400 ml Output Total 1825 ml Balance -425 ml Height & Weight Height: 5'10.00" Weight: 223lbs. 0.0oz. 101.686117lw; 25.30 BMI Method:Stated General Appearance: WD/WN, Anxious, Mild Distress HEENT: PERRL/EOMI, Moist Mucous Membranes; No Scleral Icterus (L), No Scleral Icterus (R) Neck: Normal Inspection, Supple Respiratory: No Accessory Muscle Use, Accessory Muscle Use, Crackles, Decreased Breath Sounds Cardiovascular: Normal Peripheral Pulses, Tachycardia Capillary Refill: Less Than 3 Seconds Peripheral Pulses: 1+ Left Dors-Pedis (L), 1+ Radial Pulses (R) Gastrointestinal: normal bowel sounds, non tender, soft Extremity: Normal Capillary Refill, No Calf Tenderness, No Pedal Edema Neurologic/Psychiatric: Alert, Oriented x3 Skin: Normal Color, Warm/Dry Results Lab Laboratory Tests 01/24/21 04:35 01/25/21 03:50 Assessment/Plan Assessment/Plan see free text Critical Care: Critically Ill Patient JEAN PAUL SANDOVAL MD Jan 25, 2021 10:51
--- NOTE | 2021-01-25 11:08 | Progress Note ---
JAMES KEVIN MED STUDENT 01/25/21 1108: Subjective Date Seen by a Provider: Jan 25, 2021 Time Seen by a Provider: 07:30 Subjective/Events-last exam Patient awake and alert and oriented x 4. Maintained on vapotherm at 35L and 65%. He reports unchanged SOB and mildly productive cough with whitish sputum. He slept well over night. Denies chest pain, fevers, chills, diarrhea, and headache. Denies pain. Denies further needs at this time. Reports eating and drinking well. States last BM was 3-4 days ago. Review of Systems General: No Chills, No Night Sweats; Fatigue, Malaise HEENT: No Head Aches, No Visual Changes, No Eye Pain Pulmonary: Dyspnea, Cough Cardiovascular: No: Chest Pain, Palpitations, Edema Gastrointestinal: No: Nausea, Vomiting, Abdominal Pain, Diarrhea, Constipation Genitourinary: No Dysuria, No Frequency Musculoskeletal: No: neck pain, back pain Neurological: No: Weakness, Numbness Objective Exam Last Set of Vital Signs Vital Signs Date Time Temp Pulse Resp B/P (MAP) Pulse Ox O2 Delivery O2 Flow Rate FiO2 01/25/21 08:00 95 Vapotherm 30.00 60 01/25/21 07:47 36.5 72 24 122/85 (97) Capillary Refill : Less Than 3 Seconds I&O Intake and Output 01/25/21 00:00 Intake Total 1490 ml Output Total 2075 ml Balance -585 ml Intake Oral 1190 ml IV Total 300 ml Output Urine Total 2075 ml General: Alert, Oriented X3, Cooperative, Mild Distress HEENT: Atraumatic, PERRLA, EOMI Neck: Supple, No Thyromegaly Lungs: Clear to Auscultation (significantly diminished throughout) Heart: Regular Rate, No Murmurs Abdomen: Normal Bowel Sounds, Soft, No Tenderness Extremities: No Clubbing, No Cyanosis, No Edema, Normal Pulses, No Tenderness/Swelling Skin: No Rashes, No Breakdown Neuro: Sensation Intact Psych/Mental Status: Mental Status NL Results Lab Laboratory Tests 01/24/21 11:40: Blood Gas Puncture Site UNK, Blood Gas Patient Temperature 36.7, Arterial Blood pH 7.45H, Arterial Blood Partial Pressure CO2 40, Arterial Blood Partial Pressure O2 67L, Arterial Blood HCO3 27, Arterial Blood Total CO2 28.4, Arterial Blood Oxygen Saturation 94, Arterial Blood Base Excess 3.4H, Osmany Test UNK, Blood Gas Ventilator Setting NO, Blood Gas Inspired Oxygen 50% 01/24/21 16:20: Glucometer 257H 01/24/21 20:50: Glucometer 302H 01/25/21 03:50: White Blood Count 8.7, Red Blood Count 5.24, Hemoglobin 14.6, Hematocrit 44, Mean Corpuscular Volume 83, Mean Corpuscular Hemoglobin 28, Mean Corpuscular Hemoglobin Concent 34, Red Cell Distribution Width 11.9, Platelet Count 481H, Mean Platelet Volume 10.4, Immature Granulocyte % (Auto) 1, Neutrophils (%) (Auto) 78H, Lymphocytes (%) (Auto) 14, Monocytes (%) (Auto) 6, Eosinophils (%) (Auto) 0, Basophils (%) (Auto) 0, Neutrophils # (Auto) 6.6, Lymphocytes # (Auto) 1.2, Monocytes # (Auto) 0.5, Eosinophils # (Auto) 0.0, Basophils # (Auto) 0.0, Immature Granulocyte # (Auto) 0.1, Sodium Level 138, Potassium Level 4.1, Chloride Level 102, Carbon Dioxide Level 27, Anion Gap 9, Blood Urea Nitrogen 12, Creatinine 0.83, Estimat Glomerular Filtration Rate 97, BUN/Creatinine Ratio 14, Glucose Level 103, Calcium Level 8.4L, Corrected Calcium 9.4, Total Bilirubin 0.5, Aspartate Amino Transf (AST/SGOT) 71H, Alanine Aminotransferase (ALT/SGPT) 83H, Alkaline Phosphatase 74, Total Protein 5.6L, Albumin 2.7L 01/25/21 06:55: Blood Gas Puncture Site RIGHT RADIAL, Blood Gas Patient Temperature 37, Arterial Blood pH 7.45H, Arterial Blood Partial Pressure CO2 42, Arterial Blood Partial Pressure O2 80, Arterial Blood HCO3 29H, Arterial Blood Total CO2 30.4, Arterial Blood Oxygen Saturation 96, Arterial Blood Base Excess 5.2H, Osmany Test POSITIVE, Blood Gas Ventilator Setting NO, Blood Gas Inspired Oxygen 35 L Microbiology 01/21/21 Blood Culture - Preliminary, Resulted No growth Assessment/Plan Assessment/Plan Assess & Plan/Chief Complaint Acute Hypoxic Respiratory Failure due to COVID19 -titrate vapotherm to maintain 02 sat's >90% -CT angio chest 8-2 consistent with COVID PNA, negative for PE -cxray 8-3 showed bibasilar infiltrates -continue decadron -MAT protocol -pulmonology following -encourage cough and deep breathing -IS q2hr WA -transfer to ICU if worsening respiratory failure PNA due to COVID 19 -continue to monitor -continue IV abx coverage -s/p convalesent plasma on 01/21 Elevated liver enzymes -continue to monitor HTN -continue to monitor NIDDMII -continue SSI and accuchecks CAD -continue to monitor DVT prophylaxis -Lovenox GI prophylaxis -Start protonix JO CUNHA DO 01/26/21 0604: Subjective Subjective/Events-last exam Pt doing a little better CT scan was negative for PE ABG reveals 7.45/42/80 Drops down to 88% when moving AST and ALT are 71 and 83 respectively CXR shows no changes today Much improved Bowels are not moving so he needs to get a longer cord for Vapotherm to be able to go to the bathroom Review of Systems General: Fatigue, Malaise Pulmonary: Dyspnea Objective Exam General: Alert, Oriented X3, Cooperative, No Acute Distress Lungs: Clear to Auscultation (significantly diminished throughout), Other (Diminished breath sounds all garcia) Psych/Mental Status: Mental Status NL, Mood NL Assessment/Plan Assessment/Plan Assess & Plan/Chief Complaint Assessment: Acute Hypoxic Respiratory Failure due to COVID19 HTN NIDDMII CAD Continue on Vapotherm, currently on max settings low threshold for transfer to ICU if worsening Pulm consulted Continue decadron Got convalescent plasma on 01/21 Due to high oxygen requirement Remdesivir not indicated, but did received Acemtra 01/21 MAT protocol IS Lovenox Procal down slightly today SSI DVt ppx: Lovenox Plan: Pulmonology consult Monitor closely for intubation requirement Much improved status today May moved to fourth floor tomorrow Supervisory-Addendum Brief Verification & Attestation Participated in pt care: history, MDM, physical Personally performed: exam, history, MDM, supervision of care Care discussed with: Medical Student Procedures: n/a Results interpretation: Verified all documentation Verification and Attestation of Medical Student E/M Service A medical student performed and documented this service in my presence. I reviewed and verified all information documented by the medical student and made modifications to such information, when appropriate. I personally performed the physical exam and medical decision making. Jo Cunha, Jan 26, 2021,06:02 JAMES KEVIN MED STUDENT Jan 25, 2021 11:08 JO CUNHA DO Jan 26, 2021 06:04
[2021-01-25] MEDS: ENOXAPARIN 40 MG/0.4 ML (LOVENOX) SYR SQ SCH (16:05)
[2021-01-26] VITALS (9 sets, daily range): BP systolic 108–134; BP diastolic 57–90
[2021-01-26] MEDS: RT-ALBUTEROL HFA 8.5 GM INHALER IH SCH ×3 (03:00→21:11)
[2021-01-26 05:17] LABS: HEMATOCRIT 45 % (40-54); HEMOGLOBIN 14.6 g/dL (13.3-17.7); MEAN CORPUSCULAR HEMOGLOBIN 28 pg (25-34); MEAN CORPUSCULAR HGB CONC 33 g/dL (32-36); MEAN CORPUSCULAR VOLUME 84 fL (80-99); MEAN PLATELET VOLUME 9.9 fL (9.0-12.2); PLATELET COUNT 533 10^3/uL (130-400); WHITE BLOOD COUNT 8.7 10^3/uL (4.3-11.0)
[2021-01-26 05:35] LABS: POTASSIUM 3.7 MMOL/L (3.6-5.0)
[2021-01-26 05:36] LABS: CALCIUM 8.2 MG/DL (8.5-10.1)
[2021-01-26 05:41] LABS: CREATININE SERUM 0.84 MG/DL (0.60-1.30)
[2021-01-26] MEDS: inSUlin ASPART (NovoLOG) 1 UNIT/0.01 ML (CHARGE PER UNIT) SC SCH ×7 (05:46→21:00)
[2021-01-26] MEDS: LACTULOSE SYRUP 10GM/15ML (ENULOSE) 30ML UDC PO SCH ×2 (08:51→21:01)
[2021-01-26] MEDS: polyethylene glycoL POWDER 17 GM (MIRALAX) PACK PO SCH ×2 (08:51→20:37)
[2021-01-26] MEDS: SENNA W/DOCUSATE (SENOKOT S) TABLET PO SCH ×2 (08:51→21:01)
[2021-01-26] MEDS: cefTRIAXone 1,000 MG/SWFI 10 ML IV PUSH IV SCH ×2 (08:52)
[2021-01-26 10:24] LABS: ALBUMIN 2.7 GM/DL (3.2-4.5); BILIRUBIN,DIRECT 0.2 MG/DL (0.0-0.3); BILIRUBIN,INDIRECT 0.4 MG/DL; BILIRUBIN,TOTAL 0.6 MG/DL (0.1-1.0); TOTAL PROTEIN 5.7 GM/DL (6.4-8.2)
--- NOTE | 2021-01-26 11:52 | Progress Note ---
JAMES KEVIN MED STUDENT 01/26/21 1152: Subjective Date Seen by a Provider: Jan 26, 2021 Time Seen by a Provider: 07:30 Subjective/Events-last exam Patient reports some improvement in breathing and SOB from yesterday. Denies fevers, chills, nausea, and headaches. Tolerating po intake well. Bowels are moving now. No urinary complaints. Slept well overnight. Review of Systems General: No Chills, No Night Sweats; Fatigue HEENT: No Head Aches, No Visual Changes Pulmonary: Dyspnea; No Cough Cardiovascular: No: Chest Pain, Palpitations, Edema Gastrointestinal: No: Nausea, Vomiting, Abdominal Pain Genitourinary: No Dysuria, No Frequency Musculoskeletal: No: neck pain, back pain Neurological: No: Weakness, Numbness Objective Exam Last Set of Vital Signs Vital Signs Date Time Temp Pulse Resp B/P (MAP) Pulse Ox O2 Delivery O2 Flow Rate FiO2 01/26/21 10:16 36.3 72 18 114/73 (87) 92 Vapotherm 35.00 55.00 01/26/21 09:00 50 Capillary Refill : Less Than 3 Seconds I&O Intake and Output 01/25/21 23:59 Intake Total 1180 ml Output Total 1850 ml Balance -670 ml Intake Oral 920 ml IV Total 260 ml Output Urine Total 1850 ml # Bowel Movements 1 General: Alert, Oriented X3, Cooperative, Mild Distress HEENT: Atraumatic, PERRLA, EOMI Neck: Supple, No Thyromegaly Lungs: Clear to Auscultation (diminished throughout all garcia markedly) Heart: Regular Rate, No Murmurs Abdomen: Normal Bowel Sounds, Soft, No Tenderness Extremities: No Clubbing, No Cyanosis, No Edema, Normal Pulses Skin: No Rashes, No Breakdown Neuro: Normal Speech, Normal Tone, Sensation Intact Psych/Mental Status: Mental Status NL, Mood NL Results Lab Laboratory Tests 01/25/21 14:32: Lab Scanned Report Transfusion Reaction Form 01/25/21 15:50: Glucometer 284H 01/25/21 20:13: Glucometer 279H 01/26/21 04:50: White Blood Count 8.7, Red Blood Count 5.29, Hemoglobin 14.6, Hematocrit 45, Mean Corpuscular Volume 84, Mean Corpuscular Hemoglobin 28, Mean Corpuscular Hemoglobin Concent 33, Red Cell Distribution Width 11.9, Platelet Count 533H, Mean Platelet Volume 9.9, Sodium Level 138, Potassium Level 3.7, Chloride Level 101, Carbon Dioxide Level 26, Anion Gap 11, Blood Urea Nitrogen 13, Creatinine 0.84, Estimat Glomerular Filtration Rate 95, BUN/Creatinine Ratio 15, Glucose Level 120H, Calcium Level 8.2L, Total Bilirubin 0.6, Direct Bilirubin 0.2, Indirect Bilirubin 0.4, Aspartate Amino Transf (AST/SGOT) 66H, Alanine Aminotransferase (ALT/SGPT) 130H, Alkaline Phosphatase 72, Total Protein 5.7L, Albumin 2.7L 01/26/21 05:45: Glucometer 114H 01/26/21 10:23: Glucometer 97 01/26/21 11:14: Glucometer 174H Microbiology 01/21/21 Blood Culture - Preliminary, Resulted No growth Assessment/Plan Assessment/Plan Assess & Plan/Chief Complaint Acute Hypoxic Respiratory Failure due to COVID19 -titrate vapotherm to maintain 02 sat's >90% -CT angio chest 01-24 consistent with COVID PNA, negative for PE -continue decadron -MAT protocol -pulmonology following -encourage cough and deep breathing -IS q2hr WA -aggressive pulmonary toilet -transfer back to ICU if worsening respiratory status PNA due to COVID 19 -continue to monitor -continue IV abx coverage -s/p convalesent plasma on 01/21 Elevated liver enzymes -ALT up from 83 on - to 130 today -continue to monitor HTN -continue to monitor NIDDMII -continue SSI and accuchecks CAD -continue to monitor DVT prophylaxis -Lovenox GI prophylaxis -Start protonix JO CUNHA DO 01/26/212122: Subjective Subjective/Events-last exam Pt was transferred to the floor Currently on 20 liters, 50% on Vapotherm Feels much better Bowels are moving Improvement in liver function test No major issues Labs are okay Chest X-ray reviewed Feels like he is getting better PT and OT will be ordered Dramatic improvement Review of Systems General: Fatigue Pulmonary: Dyspnea, Cough Objective Exam General: Alert, Oriented X3, Cooperative, No Acute Distress Lungs: Clear to Auscultation, Normal Air Movement, Other (Diminished breath sounds) Neuro: Normal Gait Psych/Mental Status: Mental Status NL Assessment/Plan Assessment/Plan Assess & Plan/Chief Complaint Transfer to fourth floor Improved Check meds and labs Supervisory-Addendum Brief Verification & Attestation Participated in pt care: history, MDM, physical Personally performed: exam, history, MDM, supervision of care Care discussed with: Medical Student Procedures: n/a Results interpretation: Verified all documentation Verification and Attestation of Medical Student E/M Service A medical student performed and documented this service in my presence. I reviewed and verified all information documented by the medical student and made modifications to such information, when appropriate. I personally performed the physical exam and medical decision making. Jo Cunha, Jan 26, 2021,21:21 JAMES KEVIN MED STUDENT Jan 26, 2021 11:52 JO CUNHA DO Jan 26, 2021 21:23
--- NOTE | 2021-01-26 13:33 | Physical Therapy Evaluation ---
PT Evaluation-General Medical Diagnosis Admission Date Jan 21, 2021 at 07:43 Medical Diagnosis: SOB, covid 19 Onset Date: Jan 21, 2021 Therapy Diagnosis Therapy Diagnosis: impaired endurance Height/Weight Height (Feet): 5 Height (Inches): 10.00 Weight (Pounds): 223 Weight (Ounces): 0.0 Precautions Precautions/Isolations: Airborne Isolation Referral Physician: Jo Mendieta DO Reason for Referral: Evaluation/Treatment Medical History Additional Medical History Past Medical History Surgeries: Coronary Stent Coronary Artery Disease, High Cholesterol, Hypertension Diabetes, Non-Insulin dep Reviewed History: Yes Social History Home: Single Level Current Living Status: Entry Into Home: Stairs With Railing PT Steps Into Home: 2 Prior Prior Level of Function SCALE: Activities may be completed with or without assistive devices. 8-Bzqtpppchb-rfldyjr completes the activity by him/herself with no assistance from a helper. 5-Set-up or Clean-up Assistance-helper sets up or cleans up; patient completes activity. [place] assists only prior to or following the activity. 4-Supervision or Touching Assistance-helper provides verbal cues and/or t ouching/steadying and/or contact guard assistance as patient completes activity. Assistance may be provided throughout the activity or intermittently. 3-Partial/Moderate Assistance-helper does LESS THAN HALF the effort. [place] lifts, holds or supports trunk or limbs, but provides less than half the effort. 2-Substantial/Maximal Assistance-helper does MORE THAN HALF the effort. [place] lifts or holds trunk or limbs and provides more than half the effort. 3-Crqdwsvec-zjndvo does ALL the effort. Patient does none of the effort to complete the activity. Or, the assistance of 2 or more helpers is required for the patient to complete the activity. If activity was not attempted, code reason: 7-Patient Refused. 9-Not Applicable-not attempted and the patient did not perform the activity before the current illness, exacerbation or injury. 10-Not Attempted due to Environmental Limitations-(lack of equipment, weather restraints, etc.). 88-Not Attempted due to Medical Conditions or Safety Concerns. Bed Mobility: 6 Transfers (B,C,W/C): 6 Gait: 6 Stairs: 6 Indoor Mobility (Ambulation): Independent Stairs: Independent PT Evaluation-Current Subjective Patient in bed pre tx, agrees to PT, has no complaints of pain Pt/Family Goals "to go home" Objective Patient Orientation: Person, Place, Situation Attachments: Oxygen (vapotherm) ROM/Strength ROM Lower Extremities WNL Strength Lower Extremities 5/5 gross BLE Sensory Hearing: Functional Sensation Right Lower Extremit: Intact Sensation Left Lower Extremity: Intact Transfers Roll Left to Right (QC): 6 Sit to Lying (QC): 6 Lying to Sitting/Side of Bed(Q: 6 Sit to Stand (QC): 6 Chair/Wyi-so-Jvnjh Xfer(QC): 6 Gait Does the Patient Walk?: Yes Mode of Locomotion: Walk Anticipated Mode of Locomotion: Walk Walk 10 feet (QC): 6 Walk 50 ft with 2 Turns(QC): 6 Distance: 80' Gait Assistive Device: None Comments/Gait Description Patient ambulated forward and back about 5' each way as his vapotherm would allow for a total of about 80' before getting a little SOB. Patient ambulated independently without an assistive device. Patient then sat on his bed and his O2 was 94%. Balance Sitting Static: Normal Sitting Dynamic: Normal Standing Static: Normal Standing Dynamic: Normal Treatment Standing exercises x15 (heel raises, mini-squats, marching) Assessment/Needs Patient in bed post tx with nurse call, phone, tray, all needs met. Patient has impaired endurance. He ambulates independently. Advised patient to keep ambulating in his room as much as he can and to perform the exercises he just did several times a day to keep his strength up. Patient will be discharged at this time. If patient gets more SOB or has weakness we can reassess. Rehab Potential: Fair PT Plan Problem List Problem List: Activity Tolerance Treatment/Plan Treatment Plan: Discontinue PT Treatment Duration: Jan 26, 2021 Frequency: Patient and/or Family Agrees t: Yes Safety Risks/Education Patient Education: Gait Training, Transfer Techniques, Correct Positioning, Safety Issues Teaching Recipient: Patient Teaching Methods: Demonstration, Discussion Response to Teaching: Reinforcement Needed Discharge Recommendations Plan discharge Therapy Discharge Recommendati: Home & Family Time/GCodes Time In: 1310 Time Out: 1320 Total Billed Treatment Time: 10 Total Billed Treatment 1 visit EVL 10' SANCHEZ VASQUEZ PT Jan 26, 2021 13:32
--- NOTE | 2021-01-26 13:51 | Occ Therapy Progress Note ---
Therapy Progress Note OT orders received and chart reviewed. OT visited with pt, pt indicates he has no concerns with his ability to complete ADLs and is at his PLOF, IND with all ADLs. Per PT report, pt independent with ambulation without AD. No skilled OT services indicated at this time as pt is at his PLOF and independent with ADLs. Discharge from OT 1, visit VIVI RAMIREZ OT Jan 26, 2021 13:51
--- NOTE | 2021-01-26 14:27 | Pulmonary Progress Note ---
Subjective Date Seen by a Provider: Jan 26, 2021 Time Seen by a Provider: 14:23 Subjective/Events-last exam COVID PNA, doing well, FiO2 50% vapotherm 25 lpm,, SpO2 Feels good, not SOB, CP, getting out of bed, CXR shows bilateral opacities On decadron Sepsis Event Evaluation Height, Weight, BMI Height: 5'10.00" Weight: 223lbs. 0.0oz. 101.596875rf; 25.30 BMI Method:Stated Exam Exam Patient acknowledged, consented, and participated in this virtual visit which was conducted using real time audio/video Vital Signs Date Time Temp Pulse Resp B/P (MAP) Pulse Ox O2 Delivery O2 Flow Rate FiO2 01/26/21 12:16 36.3 79 18 114/70 (85) 92 Vapotherm 20.00 50.00 01/26/21 10:16 36.3 72 18 114/73 (87) 92 Vapotherm 35.00 55.00 01/26/21 09:00 91 Vapotherm 20.00 50 01/26/21 08:00 36.2 69 18 121/57 (78) 94 Vapotherm 35.00 55.00 01/26/21 04:00 71 108/86 (93) 93 Vapotherm 35.00 55.00 01/26/21 03:00 94 Vapotherm 30.00 55 01/26/21 00:00 74 134/90 (105) 94 Vapotherm 35.00 55.00 01/25/21 23:00 75 119/93 (102) 82 Vapotherm 35.00 55.00 01/25/21 20:51 94 Vapotherm 30.00 60 01/25/21 20:00 36.4 01/25/21 20:00 95 Vapotherm 30.00 60 01/25/21 20:00 74 26 103/69 (80) 90 Vapotherm 30.00 60.00 01/25/21 15:45 36.3 78 28 138/87 (104) 94 Vapotherm 30.00 60.00 I & O 01/26/21 07:00 Intake Total 1130 ml Output Total 1850 ml Balance -720 ml Height & Weight Height: 5'10.00" Weight: 223lbs. 0.0oz. 101.321540cl; 25.30 BMI Method:Stated General Appearance: No Apparent Distress, WD/WN, Anxious, Mild Distress HEENT: PERRL/EOMI, Moist Mucous Membranes; No Scleral Icterus (L), No Scleral Icterus (R) Neck: Normal Inspection, Supple Respiratory: No Accessory Muscle Use, Accessory Muscle Use, Crackles, Decreased Breath Sounds Cardiovascular: Regular Rate, Rhythm, Normal Peripheral Pulses, Tachycardia Capillary Refill: Less Than 3 Seconds Peripheral Pulses: 1+ Left Dors-Pedis (L), 1+ Radial Pulses (R) Gastrointestinal: normal bowel sounds, non tender, soft Extremity: Normal Capillary Refill, No Calf Tenderness, No Pedal Edema Neurologic/Psychiatric: Alert, Oriented x3 Skin: Normal Color, Warm/Dry Results Lab Laboratory Tests 01/25/21 03:50 01/26/21 04:50 Assessment/Plan Assessment/Plan will continue decadron, pt is improving, been in hospital one week Time spent with patient (mins): 15 HILDA GUERRERO MD Jan 26, 2021 14:27
[2021-01-26] MEDS: ENOXAPARIN 40 MG/0.4 ML (LOVENOX) SYR SQ SCH (14:32)
[2021-01-26] MEDS: metFORMIN 500 MG (GLUCOPHAGE) TAB PO SCH (17:01)
[2021-01-26] MEDS: meTOprolol TARTRATE 25 MG (LOPRESSOR) TABLET PO SCH (21:01)
[2021-01-26] MEDS: ASPIRIN E.C. 81 MG (ECOTRIN) TAB PO SCH (21:01)
[2021-01-27] MEDS: RT-ALBUTEROL HFA 8.5 GM INHALER IH SCH ×3 (02:24→20:53)
[2021-01-27 03:53] VITALS: BP 135/86
--- NOTE | 2021-01-27 05:26 | Progress Note ---
Subjective Date Seen by a Provider: Jan 27, 2021 Time Seen by a Provider: 11:00 Subjective/Events-last exam Pt doing really well On 8 liters of high flow oxygen Off vapotherm PT and OT worked with him and he is doing really well Bowels are moving Eating and drinking Feels like he is doing better Review of Systems General: Fatigue Pulmonary: Dyspnea Objective Exam Last Set of Vital Signs Vital Signs Date Time Temp Pulse Resp B/P (MAP) Pulse Ox O2 Delivery O2 Flow Rate FiO2 01/27/21 03:53 36.3 65 18 135/86 (102) 97 Vapotherm 20.00 50.00 01/27/21 02:25 45 Capillary Refill : Less Than 3 Seconds I&O Intake and Output 01/27/21 00:00 Intake Total 1525 ml Output Total 350 ml Balance 1175 ml Intake Oral 1515 ml IV Total 10 ml Output Urine Total 350 ml # Voids 7 General: Alert, Oriented X3, Cooperative, No Acute Distress Lungs: Clear to Auscultation, Normal Air Movement, Other (Diminished breath sounds no change) Neuro: Normal Gait, Normal Speech, Strength at 5/5 X4 Ext, Normal Tone Results Lab Laboratory Tests 01/26/21 05:45: Glucometer 114H 01/26/21 10:23: Glucometer 97 01/26/21 11:14: Glucometer 174H 01/26/21 15:44: Glucometer 345H 01/26/21 20:38: Glucometer 223H Microbiology 01/21/21 Blood Culture - Final, Complete No growth Assessment/Plan Assessment/Plan Assess & Plan/Chief Complaint Assessment: Acute hypoxic respiratory failure COVID-19 pneumonia Diabetes [id number] due to steroids Plan: Wean O2 Home O2 evaluation soon Discharge plan soon CHEYENNE CUNHA DO Jan 27, 2021 05:25
[2021-01-27 05:52] LABS: BASOPHILS % (AUTO) 0 % (0-10); EOSINOPHILS # (AUTO) 0.2 10^3/uL (0.0-0.3); EOSINOPHILS % (AUTO) 2 % (0-10); HEMATOCRIT 47 % (40-54); HEMOGLOBIN 15.3 g/dL (13.3-17.7); LYMPHOCYTES # (AUTO) 1.8 10^3/uL (1.0-4.0); LYMPHOCYTES % (AUTO) 19 % (12-44); MEAN CORPUSCULAR HEMOGLOBIN 28 pg (25-34); MEAN CORPUSCULAR HGB CONC 33 g/dL (32-36); MEAN CORPUSCULAR VOLUME 85 fL (80-99); MEAN PLATELET VOLUME 9.6 fL (9.0-12.2); MONOCYTES # (AUTO) 0.6 10^3/uL (0.0-1.0); MONOCYTES % (AUTO) 7 % (0-12); NEUTROPHILS # (AUTO) 6.5 10^3/uL (1.8-7.8); NEUTROPHILS % (AUTO) 69 % (42-75); PLATELET COUNT 558 10^3/uL (130-400); WHITE BLOOD COUNT 9.4 10^3/uL (4.3-11.0)
[2021-01-27 06:05] LABS: ALBUMIN 2.9 GM/DL (3.2-4.5); POTASSIUM 3.8 MMOL/L (3.6-5.0)
[2021-01-27 06:06] LABS: CALCIUM 8.3 MG/DL (8.5-10.1)
[2021-01-27 06:07] LABS: TOTAL PROTEIN 5.6 GM/DL (6.4-8.2)
[2021-01-27] MEDS: inSUlin ASPART (NovoLOG) 1 UNIT/0.01 ML (CHARGE PER UNIT) SC SCH ×7 (06:08→21:19)
[2021-01-27 06:09] LABS: BILIRUBIN,TOTAL 0.5 MG/DL (0.1-1.0)
[2021-01-27 06:11] LABS: CREATININE SERUM 0.83 MG/DL (0.60-1.30)
[2021-01-27 08:00] VITALS: BP 133/84
[2021-01-27] MEDS: LACTULOSE SYRUP 10GM/15ML (ENULOSE) 30ML UDC PO SCH ×2 (08:12→20:05)
[2021-01-27] MEDS: polyethylene glycoL POWDER 17 GM (MIRALAX) PACK PO SCH ×2 (08:12→20:02)
[2021-01-27] MEDS: meTOprolol TARTRATE 25 MG (LOPRESSOR) TABLET PO SCH ×2 (08:13→20:05)
[2021-01-27] MEDS: FAMOTIDINE 20 MG (PEPCID) TABLET PO SCH ×2 (08:13→20:03)
[2021-01-27] MEDS: SENNA W/DOCUSATE (SENOKOT S) TABLET PO SCH ×2 (08:13→20:03)
[2021-01-27] MEDS: metFORMIN 500 MG (GLUCOPHAGE) TAB PO SCH ×2 (08:13→17:40)
[2021-01-27 12:11] VITALS: BP 110/69
--- NOTE | 2021-01-27 14:33 | Pulmonary Progress Note ---
Subjective Date Seen by a Provider: Jan 27, 2021 Time Seen by a Provider: 14:27 Subjective/Events-last exam Says no SOB, even on exertion, slight cough, no cough, abd pain, On IV decadron, on nasal cannula 6 lpm and SpO2 98% Sepsis Event Evaluation Height, Weight, BMI Height: 5'10.00" Weight: 223lbs. 0.0oz. [id number]; 25.30 BMI Method:Stated Exam Exam Patient acknowledged, consented, and participated in this virtual visit which was conducted using real time audio/video Vital Signs Date Time Temp Pulse Resp B/P (MAP) Pulse Ox O2 Delivery O2 Flow Rate FiO2 01/27/21 12:11 36.3 74 20 110/69 (83) 93 High Flow N/C 6.00 01/27/21 08:00 35.9 66 18 133/84 (100) 99 High Flow N/C 6.00 01/27/21 08:00 93 Vapotherm 20.00 50 01/27/21 07:11 97 High Flow N/C 8.00 01/27/21 03:53 36.3 65 18 135/86 (102) 97 Vapotherm 20.00 50.00 01/27/21 02:25 95 Vapotherm 20.00 45 01/26/21 23:17 36.5 87 20 122/80 (94) 98 Vapotherm 20.00 50.00 01/26/21 21:21 36.6 82 97 01/26/21 21:11 97 Vapotherm 20.00 50 01/26/21 20:34 91 Vapotherm 20.00 50 01/26/21 19:05 36.6 82 18 123/83 (96) 95 Vapotherm 20.00 50.00 01/26/21 15:44 36.6 81 18 113/74 (87) 94 Vapotherm 20.00 50.00 01/26/21 15:05 91 Vapotherm 20.00 50 I & O 01/27/21 07:00 Intake Total 1675 ml Balance 1675 ml Height & Weight Height: 5'10.00" Weight: 223lbs. 0.0oz. [id number]; 25.30 BMI Method:Stated General Appearance: No Apparent Distress, WD/WN, Anxious, Mild Distress HEENT: PERRL/EOMI, Moist Mucous Membranes; No Scleral Icterus (L), No Scleral Icterus (R) Neck: Normal Inspection, Supple Respiratory: Lungs Clear, No Accessory Muscle Use, Accessory Muscle Use, Crackles, Decreased Breath Sounds Cardiovascular: Regular Rate, Rhythm, Normal Peripheral Pulses, Tachycardia Capillary Refill: Less Than 3 Seconds Peripheral Pulses: 1+ Left Dors-Pedis (L), 1+ Radial Pulses (R) Gastrointestinal: normal bowel sounds, non tender, soft Extremity: Normal Capillary Refill, No Calf Tenderness, No Pedal Edema Neurologic/Psychiatric: Alert, Oriented x3 Skin: Normal Color, Warm/Dry Results Lab Laboratory Tests 01/26/21 04:50 01/27/21 05:45 Assessment/Plan Assessment/Plan Oxygenations acceptable, will continue IV decadron, last day 01/31, may be able to go home soon HILDA GUERRERO MD Jan 27, 2021 14:33
[2021-01-27 15:54] VITALS: BP 115/72
[2021-01-27] MEDS: ENOXAPARIN 40 MG/0.4 ML (LOVENOX) SYR SQ SCH (16:36)
[2021-01-27 19:14] VITALS: BP 117/79
[2021-01-27] MEDS: ASPIRIN E.C. 81 MG (ECOTRIN) TAB PO SCH (20:03)
[2021-01-27 23:28] VITALS: BP 118/71
[2021-01-28] MEDS: RT-ALBUTEROL HFA 8.5 GM INHALER IH SCH ×3 (03:22→14:11)
[2021-01-28 03:23] VITALS: BP 122/79
[2021-01-28] MEDS: inSUlin ASPART (NovoLOG) 1 UNIT/0.01 ML (CHARGE PER UNIT) SC SCH ×4 (05:21→15:33)
[2021-01-28 06:46] LABS: BASOPHILS % (AUTO) 0 % (0-10); EOSINOPHILS # (AUTO) 0.1 10^3/uL (0.0-0.3); EOSINOPHILS % (AUTO) 1 % (0-10); HEMATOCRIT 44 % (40-54); HEMOGLOBIN 14.7 g/dL (13.3-17.7); LYMPHOCYTES % (AUTO) 22 % (12-44); MEAN CORPUSCULAR HEMOGLOBIN 28 pg (25-34); MEAN CORPUSCULAR HGB CONC 33 g/dL (32-36); MEAN CORPUSCULAR VOLUME 84 fL (80-99); MEAN PLATELET VOLUME 9.7 fL (9.0-12.2); MONOCYTES # (AUTO) 0.6 10^3/uL (0.0-1.0); MONOCYTES % (AUTO) 7 % (0-12); NEUTROPHILS % (AUTO) 66 % (42-75); PLATELET COUNT 513 10^3/uL (130-400); WHITE BLOOD COUNT 9.2 10^3/uL (4.3-11.0)
[2021-01-28 07:04] LABS: ALBUMIN 2.7 GM/DL (3.2-4.5); BILIRUBIN,TOTAL 0.5 MG/DL (0.1-1.0); CALCIUM 8.5 MG/DL (8.5-10.1); CREATININE SERUM 0.84 MG/DL (0.60-1.30); TOTAL PROTEIN 5.4 GM/DL (6.4-8.2)
[2021-01-28 08:08] VITALS: BP 120/75
[2021-01-28] MEDS: metFORMIN 500 MG (GLUCOPHAGE) TAB PO SCH (09:31)
[2021-01-28] MEDS: FAMOTIDINE 20 MG (PEPCID) TABLET PO SCH (09:31)
[2021-01-28] MEDS: meTOprolol TARTRATE 25 MG (LOPRESSOR) TABLET PO SCH (09:31)
[2021-01-28] MEDS: polyethylene glycoL POWDER 17 GM (MIRALAX) PACK PO SCH (09:32)
[2021-01-28] MEDS: SENNA W/DOCUSATE (SENOKOT S) TABLET PO SCH (09:32)
[2021-01-28] MEDS: LACTULOSE SYRUP 10GM/15ML (ENULOSE) 30ML UDC PO SCH (09:32)
[2021-01-28 12:00] VITALS: BP 112/60
[2021-01-28] MEDS ORDERED: RT-ALBUINH IH (13:48)
[2021-01-28] MEDS ORDERED: INHA1SPA32 MC (13:48)
[2021-01-28] MEDS ORDERED: APIX2.5T PO (13:48)
[2021-01-28] MEDS ORDERED: DEXA6TAB PO (13:48)
[2021-01-28] MEDS ORDERED: FAMO20TA5 PO (13:48)
--- NOTE | 2021-01-28 13:49 | Discharge Summary ---
Diagnosis/Chief Complaint Date of Admission Jan 21, 2021 at 07:43 Date of Discharge Discharge Date: Jan 28, 2021 Discharge Diagnosis Assessment: Acute hypoxic respiratory failure COVID-19 pneumonia Diabetes [id number] due to steroids Plan: Wean O2 Home O2 evaluation soon Discharge plan soon Discharge Summary Discharge Physical Examination Allergies: Coded Allergies: No Known Drug Allergies (Unverified , 07/31/16) Vitals & I&Os Vital Signs Date Time Temp Pulse Resp B/P (MAP) Pulse Ox O2 Delivery O2 Flow Rate FiO2 01/28/21 16:00 36.1 76 18 112/60 94 Room Air 4.00 01/27/21 08:00 50 General Appearance: Alert, Oriented X3, Cooperative Respiratory: Clear to Auscultation Cardiovascular: Regular Rate Neuro: Normal Gait, Normal Speech, Strength at 5/5 X4 Ext Hospital Course Was the Problem List Reviewed?: Yes Hospital course: Patient had a standard hospital course although the severity of his COVID-19 pneumonia was concerning for rapid progression to ventilator and . Diabetes remained out of control due to steroids. He was given maximum medication including Actemra which made a significant impact on his course and he was ultimately able to ambulate and wean oxygen down to room air and not need home oxygen at discharge. He will be placed on additional thrombus prophylaxis due to the severity of his COVID-19 pneumonia and his comorbidities with Eliquis 2.5 twice daily and finished up on acute meds. Labs (last 24 hrs) Laboratory Tests 01/21/21 05:05: White Blood Count 14.3H, Red Blood Count 5.91H, Hemoglobin 16.1, Hematocrit 49, Mean Corpuscular Volume 83, Mean Corpuscular Hemoglobin 27, Mean Corpuscular Hemoglobin Concent 33, Red Cell Distribution Width 12.0, Platelet Count 377, Mean Platelet Volume 11.0, Immature Granulocyte % (Auto) 1, Neutrophils (%) (Auto) 92H, Lymphocytes (%) (Auto) 4L, Monocytes (%) (Auto) 3, Eosinophils (%) (Auto) 0, Basophils (%) (Auto) 0, Neutrophils # (Auto) 13.2H, Lymphocytes # (Auto) 0.6L, Monocytes # (Auto) 0.4, Eosinophils # (Auto) 0.0, Basophils # (Auto) 0.0, Immature Granulocyte # (Auto) 0.2H, Neutrophils % (Manual) 89, Ly mphocytes % (Manual) 4, Monocytes % (Manual) 3, Band Neutrophils 4, Microcytosis SLIGHT, Prothrombin Time 13.8, INR Comment 1.0, Activated Partial Thromboplast Time 28, Sodium Level 137, Potassium Level 4.1, Chloride Level 99, Carbon Dioxide Level 23, Anion Gap 15H, Blood Urea Nitrogen 18, Creatinine 1.24, Estimat Glomerular Filtration Rate 61, BUN/Creatinine Ratio 15, Glucose Level 336H, Lactic Acid Level 2.55*H, Calcium Level 9.2, Corrected Calcium 9.6, Total Bilirubin 0.6, Aspartate Amino Transf (AST/SGOT) 30, Alanine Aminotransferase (ALT/SGPT) 20, Alkaline Phosphatase 83, C-Reactive Protein High Sensitivity 23.39H, Total Protein 7.6, Albumin 3.5, Procalcitonin 0.28H 01/21/21 06:12: Blood Gas Puncture Site R RAD, Blood Gas Patient Temperature 37.8, Arterial Blood pH 7.45H, Arterial Blood Partial Pressure CO2 32L, Arterial Blood Partial Pressure O2 127H, Arterial Blood HCO3 22L, Arterial Blood Total CO2 22.6, Arterial Blood Oxygen Saturation 99, Arterial Blood Base Excess -1.7, Osmany Test YES-POS, Blood Gas Ventilator Setting NO, Blood Gas Inspired Oxygen 10L 01/21/21 07:45: Lactic Acid Level 1.40 01/21/21 15:07: Glucometer 330H 01/21/21 20:50: Glucometer 289H 01/22/21 04:31: White Blood Count 13.0H, Red Blood Count 5.17, Hemoglobin 14.1, Hematocrit 43, Mean Corpuscular Volume 84, Mean Corpuscular Hemoglobin 27, Mean Corpuscular Hemoglobin Concent 33, Red Cell Distribution Width 12.2, Platelet Count 387, Mean Platelet Volume 11.4, D-Dimer 0.82H, Sodium Level 141, Potassium Level 4.3, Chloride Level 105, Carbon Dioxide Level 22, Anion Gap 14, Blood Urea Nitrogen 19H, Creatinine 0.83, Estimat Glomerular Filtration Rate 97, BUN/Creatinine Ratio 23, Glucose Level 200H, Calcium Level 8.6, Procalcitonin 0.18H 01/22/21 11:07: Glucometer 279H 01/22/21 17:17: Glucometer 311H 01/22/21 20:25: Glucometer 275H 01/23/21 04:22: White Blood Count 10.7, Red Blood Count 5.00, Hemoglobin 13.9, Hematocrit 42, Mean Corpuscular Volume 84, Mean Corpuscular Hemoglobin 28, Mean Corpuscular Hemoglobin Concent 33, Red Cell Distribution Width 12.2, Platelet Count 435H, Mean Platelet Volume 11.0, Sodium Level 136, Potassium Level 4.3, Chloride Level 104, Carbon Dioxide Level 25, Anion Gap 7, Blood Urea Nitrogen 19H, Creatinine 0.83, Estimat Glomerular Filtration Rate 97, BUN/Creatinine Ratio 23, Glucose Level 244H, Calcium Level 8.1L 01/23/21 05:36: Glucometer 232H 01/23/21 10:23: Glucometer 259H 01/23/21 16:31: Glucometer 279H 01/23/21 21:30: Glucometer 312H 01/24/21 04:35: White Blood Count 10.4, Red Blood Count 5.29, Hemoglobin 14.6, Hematocrit 45, Mean Corpuscular Volume 84, Mean Corpuscular Hemoglobin 28, Mean Corpuscular Hemoglobin Concent 33, Red Cell Distribution Width 11.9, Platelet Count 430H, Mean Platelet Volume 10.8, Sodium Level 137, Potassium Level 4.5, Chloride Level 102, Carbon Dioxide Level 26, Anion Gap 9, Blood Urea Nitrogen 18, Creatinine 0.82, Estimat Glomerular Filtration Rate 98, BUN/Creatinine Ratio 22, Glucose Level 203H, Calcium Level 8.2L, Corrected Calcium 9.2, Total Bilirubin 0.5, Direct Bilirubin 0.2, Indirect Bilirubin 0.3, Aspartate Amino Transf (AST/SGOT) 51H, Alanine Aminotransferase (ALT/SGPT) 45, Alkaline Phosphatase 80, B-Type Natriuretic Peptide 40.7, Total Protein 6.0L, Albumin 2.7L 01/24/21 10:46: Glucometer 118H 01/24/21 11:40: Blood Gas Puncture Site UNK, Blood Gas Patient Temperature 36.7, Arterial Blood pH 7.45H, Arterial Blood Partial Pressure CO2 40, Arterial Blood Partial Pressure O2 67L, Arterial Blood HCO3 27, Arterial Blood Total CO2 28.4, Arterial Blood Oxygen Saturation 94, Arterial Blood Base Excess 3.4H, Osmany Test UNK, Blood Gas Ventilator Setting NO, Blood Gas Inspired Oxygen 50% 01/24/21 16:20: Glucometer 257H 01/24/21 20:50: Glucometer 302H 01/25/21 03:50: White Blood Count 8.7, Red Blood Count 5.24, Hemoglobin 14.6, Hematocrit 44, Mean Corpuscular Volume 83, Mean Corpuscular Hemoglobin 28, Mean Corpuscular Hemoglobin Concent 34, Red Cell Distribution Width 11.9, Platelet Count 481H, Mean Platelet Volume 10.4, Immature Granulocyte % (Auto) 1, Neutrophils (%) (Auto) 78H, Lymphocytes (%) (Auto) 14, Monocytes (%) (Auto) 6, Eosinophils (%) (Auto) 0, Basophils (%) (Auto) 0, Neutrophils # (Auto) 6.6, Lymphocytes # (Auto) 1.2, Monocytes # (Auto) 0.5, Eosinophils # (Auto) 0.0, Basophils # (Auto) 0.0, Immature Granulocyte # (Auto) 0.1, Sodium Level 138, Potassium Level 4.1, Chloride Level 102, Carbon Dioxide Level 27, Anion Gap 9, Blood Urea Nitrogen 12, Creatinine 0.83, Estimat Glomerular Filtration Rate 97, BUN/Creatinine Ratio 14, Glucose Level 103, Calcium Level 8.4L, Corrected Calcium 9.4, Total Bilirubin 0.5, Aspartate Amino Transf (AST/SGOT) 71H, Alanine Aminotransferase (ALT/SGPT) 83H, Alkaline Phosphatase 74, Total Protein 5.6L, Albumin 2.7L 01/25/21 06:55: Blood Gas Puncture Site RIGHT RADIAL, Blood Gas Patient Temperature 37, Arterial Blood pH 7.45H, Arterial Blood Partial Pressure CO2 42, Arterial Blood Partial Pressure O2 80, Arterial Blood HCO3 29H, Arterial Blood Total CO2 30.4, Arterial Blood Oxygen Saturation 96, Arterial Blood Base Excess 5.2H, Osmany Test PO SITIVE, Blood Gas Ventilator Setting NO, Blood Gas Inspired Oxygen 35 L 01/25/21 11:34: Glucometer 214H 01/25/21 14:32: Lab Scanned Report Transfusion Reaction Form 01/25/21 15:50: Glucometer 284H 01/25/21 20:13: Glucometer 279H 01/26/21 04:50: White Blood Count 8.7, Red Blood Count 5.29, Hemoglobin 14.6, Hematocrit 45, Mean Corpuscular Volume 84, Mean Corpuscular Hemoglobin 28, Mean Corpuscular Hemoglobin Concent 33, Red Cell Distribution Width 11.9, Platelet Count 533H, Mean Platelet Volume 9.9, Sodium Level 138, Potassium Level 3.7, Chloride Level 101, Carbon Dioxide Level 26, Anion Gap 11, Blood Urea Nitrogen 13, Creatinine 0.84, Estimat Glomerular Filtration Rate 95, BUN/Creatinine Ratio 15, Glucose Level 120H, Calcium Level 8.2L, Total Bilirubin 0.6, Direct Bilirubin 0.2, Indirect Bilirubin 0.4, Aspartate Amino Transf (AST/SGOT) 66H, Alanine Aminotransferase (ALT/SGPT) 130H, Alkaline Phosphatase 72, Total Protein 5.7L, Albumin 2.7L 01/26/21 05:45: Glucometer 114H 01/26/21 10:23: Glucometer 97 01/26/21 11:14: Glucometer 174H 01/26/21 15:44: Glucometer 345H 01/26/21 20:38: Glucometer 223H 01/27/21 05:45: White Blood Count 9.4, Red Blood Count 5.54H, Hemoglobin 15.3, Hematocrit 47, Mean Corpuscular Volume 85, Mean Corpuscular Hemoglobin 28, Mean Corpuscular Hemoglobin Concent 33, Red Cell Distribution Width 11.9, Platelet Count 558H, Mean Platelet Volume 9.6, Immature Granulocyte % (Auto) 4, Neutrophils (%) (Auto) 69, Lymphocytes (%) (Auto) 19, Monocytes (%) (Auto) 7, Eosinophils (%) (Auto) 2, Basophils (%) (Auto) 0, Neutrophils # (Auto) 6.5, Lymphocytes # (Auto) 1.8, Monocytes # (Auto) 0.6, Eosinophils # (Auto) 0.2, Basophils # (Auto) 0.0, Immature Granulocyte # (Auto) 0.3H, Sodium Level 139, Potassium Level 3.8, Chloride Level 103, Carbon Dioxide Level 28, Anion Gap 8, Blood Urea Nitrogen 18, Creatinine 0.83, Estimat Glomerular Filtration Rate 97, BUN/Creatinine Ratio 22, Glucose Level 102, Calcium Level 8.3L, Corrected Calcium 9.2, Total Bilirubin 0.5, Aspartate Amino Transf (AST/SGOT) 74H, Alanine Aminotransferase (ALT/SGPT) 205H, Alkaline Phosphatase 75, Total Protein 5.6L, Albumin 2.9L 01/27/21 11:29: Glucometer 178H 01/27/21 15:53: Glucometer 304H 01/27/21 21:18: Glucometer 185H 01/28/21 05:20: Glucometer 109 01/28/21 06:25: White Blood Count 9.2, Red Blood Count 5.27, Hemoglobin 14.7, Hematocrit 44, Mean Corpuscular Volume 84, Mean Corpuscular Hemoglobin 28, Mean Corpuscular Hemoglobin Concent 33, Red Cell Distribution Width 12.0, Platelet Count 513H, Mean Platelet Volume 9.7, Immature Granulocyte % (Auto) 4, Neutrophils (%) (Auto) 66, Lymphocytes (%) (Auto) 22, Monocytes (%) (Auto) 7, Eosinophils (%) (Auto) 1, Basophils (%) (Auto) 0, Neutrophils # (Auto) 6.0, Lymphocytes # (Auto) 2.0, Monocytes # (Auto) 0.6, Eosinophils # (Auto) 0.1, Basophils # (Auto) 0.0, Immature Granulocyte # (Auto) 0.4H, Sodium Level 137, Potassium Level 4.0, Chloride Level 103, Carbon Dioxide Level 27, Anion Gap 7, Blood Urea Nitrogen 17, Creatinine 0.84, Estimat Glomerular Filtration Rate 95, BUN/Creatinine Ratio 20, Glucose Level 85, Calcium Level 8.5, Corrected Calcium 9.5, Total Bilirubin 0.5, Aspartate Amino Transf (AST/SGOT) 72H, Alanine Aminotransferase (ALT/SGPT) 227H, Alkaline Phosphatase 75, Total Protein 5.4L, Albumin 2.7L 01/28/21 11:14: Glucometer 264H 01/28/21 11:17: Glucometer 145H Microbiology 01/21/21 Blood Culture - Final, Complete No growth Pending Labs Microbiology Date/Time Source Procedure Growth Status 01/21/21 05:20 Peripheral Lt Ac Blood Culture - Final No growth Complete 01/21/21 05:05 Peripheral Rt Ac Blood Culture - Final Staph, Coag Neg ([employer]) Complete Laboratory Tests 01/21/21 05:05: White Blood Count 14.3, Red Blood Count 5.91, Hemoglobin 16.1, Hematocrit 49, Mean Corpuscular Volume 83, Mean Corpuscular Hemoglobin 27, Mean Corpuscular Hemoglobin Concent 33, Red Cell Distribution Width 12.0, Platelet Count 377, Mean Platelet Volume 11.0, Immature Granulocyte % (Auto) 1, Neutrophils (%) (Auto) 92, Lymphocytes (%) (Auto) 4, Monocytes (%) (Auto) 3, Eosinophils (%) (Auto) 0, Basophils (%) (Auto) 0, Neutrophils # (Auto) 13.2, Lymphocytes # (Auto) 0.6, Monocytes # (Auto) 0.4, Eosinophils # (Auto) 0.0, Basophils # (Auto) 0.0, Immature Granulocyte # (Auto) 0.2, Neutrophils % (Manual) 89, Lymphocytes % (Manual) 4, Monocytes % (Manual) 3, Band Neutrophils 4, Microcytosis SLIGHT, Prothrombin Time 13.8, INR Comment 1.0, Activated Partial Thromboplast Time 28, Sodium Level 137, Potassium Level 4.1, Chloride Level 99, Carbon Dioxide Level 2 3, Anion Gap 15, Blood Urea Nitrogen 18, Creatinine 1.24, Estimat Glomerular Filtration Rate 61, BUN/Creatinine Ratio 15, Glucose Level 336, Lactic Acid Level 2.55, Calcium Level 9.2, Corrected Calcium 9.6, Total Bilirubin 0.6, Aspartate Amino Transf (AST/SGOT) 30, Alanine Aminotransferase (ALT/SGPT) 20, Alkaline Phosphatase 83, C-Reactive Protein High Sensitivity 23.39, Total Prot ein 7.6, Albumin 3.5, Procalcitonin 0.28 01/21/21 06:12: Blood Gas Puncture Site R RAD, Blood Gas Patient Temperature 37.8, Arterial Blood pH 7.45, Arterial Blood Partial Pressure CO2 32, Arterial Blood Partial Pressure O2 127, Arterial Blood HCO3 22, Arterial Blood Total CO2 22.6, Arterial Blood Oxygen Saturation 99, Arterial Blood Base Excess -1.7, Osmany Test YES-POS, Blood Gas Ventilator Setting NO, Blood Gas Inspired Oxygen 10L 01/21/21 07:45: Lactic Acid Level 1.40 01/21/21 15:07: Glucometer 330 01/21/21 20:50: Glucometer 289 01/22/21 04:31: White Blood Count 13.0, Red Blood Count 5.17, Hemoglobin 14.1, Hematocrit 43, Mean Corpuscular Volume 84, Mean Corpuscular Hemoglobin 27, Mean Corpuscular Hemoglobin Concent 33, Red Cell Distribution Width 12.2, Platelet Count 387, Mean Platelet Volume 11.4, D-Dimer 0.82, Sodium Level 141, Potassium Level 4.3, Chloride Level 105, Carbon Dioxide Level 22, Anion Gap 14, Blood Urea Nitrogen 19, Creatinine 0.83, Estimat Glomerular Filtration Rate 97, BUN/Creatinine Ratio 23, Glucose Level 200, Calcium Level 8.6, Procalcitonin 0.18 01/22/21 11:07: Glucometer 279 01/22/21 17:17: Glucometer 311 01/22/21 20:25: Glucometer 275 01/23/21 04:22: White Blood Count 10.7, Red Blood Count 5.00, Hemoglobin 13.9, Hematocrit 42, Mean Corpuscular Volume 84, Mean Corpuscular Hemoglobin 28, Mean Corpuscular Hemoglobin Concent 33, Red Cell Distribution Width 12.2, Platelet Count 435, Mean Platelet Volume 11.0, Sodium Level 136, Potassium Level 4.3, Chloride Level 104, Carbon Dioxide Level 25, Anion Gap 7, Blood Urea Nitrogen 19, Creatinine 0.83, Estimat Glomerular Filtration Rate 97, BUN/Creatinine Ratio 23, Glucose Level 244, Calcium Level 8.1 01/23/21 05:36: Glucometer 232 01/23/21 10:23: Glucometer 259 01/23/21 16:31: Glucometer 279 01/23/21 21:30: Glucometer 312 01/24/21 04:35: White Blood Count 10.4, Red Blood Count 5.29, Hemoglobin 14.6, Hematocrit 45, Mean Corpuscular Volume 84, Mean Corpuscular Hemoglobin 28, Mean Corpuscular Hemoglobin Concent 33, Red Cell Distribution Width 11.9, Platelet Count 430, Mean Platelet Volume 10.8, Sodium Level 137, Potassium Level 4.5, Chloride Level 102, Carbon Dioxide Level 26, Anion Gap 9, Blood Urea Nitrogen 18, Creatinine 0.82, Estimat Glomerular Filtration Rate 98, BUN/Creatinine Ratio 22, Glucose Level 203, Calcium Level 8.2, Corrected Calcium 9.2, Total Bilirubin 0.5, Direct Bilirubin 0.2, Indirect Bilirubin 0.3, Aspartate Amino Transf (AST/SGOT) 51, Alanine Aminotransferase (ALT/SGPT) 45, Alkaline Phosphatase 80, B-Type Natriu retic Peptide 40.7, Total Protein 6.0, Albumin 2.7 01/24/21 10:46: Glucometer 118 01/24/21 11:40: Blood Gas Puncture Site UNK, Blood Gas Patient Temperature 36.7, Arterial Blood pH 7.45, Arterial Blood Partial Pressure CO2 40, Arterial Blood Partial Pressure O2 67, Arterial Blood HCO3 27, Arterial Blood Total CO2 28.4, Arterial Blood Oxygen Saturation 94, Arterial Blood Base Excess 3.4, Osmany Test UNK, Blood Gas Ventilator Setting NO, Blood Gas Inspired Oxygen 50% 01/24/21 16:20: Glucometer 257 01/24/21 20:50: Glucometer 302 01/25/21 03:50: White Blood Count 8.7, Red Blood Count 5.24, Hemoglobin 14.6, Hematocrit 44, Mean Corpuscular Volume 83, Mean Corpuscular Hemoglobin 28, Mean Corpuscular Hemoglobin Concent 34, Red Cell Distribution Width 11.9, Platelet Count 481, Mean Platelet Volume 10.4, Immature Granulocyte % (Auto) 1, Neutrophils (%) (Auto) 78, Lymphocytes (%) (Auto) 14, Monocytes (%) (Auto) 6, Eosinophils (%) (Auto) 0, Basophils (%) (Auto) 0, Neutrophils # (Auto) 6.6, Lymphocytes # (Auto) 1.2, Monocytes # (Auto) 0.5, Eosinophils # (Auto) 0.0, Basophils # (Auto) 0.0, Immature Granulocyte # (Auto) 0.1, Sodium Level 138, Potassium Level 4.1, Chloride Level 102, Carbon Dioxide Level 27, Anion Gap 9, Blood Urea Nitrogen 12, Creatinine 0.83, Estimat Glomerular Filtration Rate 97, BUN/Creatinine Ratio 14, Glucose Level 103, Calcium Level 8.4, Corrected Calcium 9.4, Total Bilirubin 0.5, Aspartate Amino Transf (AST/SGOT) 71, Alanine Aminotransferase (ALT/SGPT) 83, Alkaline Phosphatase 74, Total Protein 5.6, Albumin 2.7 01/25/21 06:55: Blood Gas Puncture Site RIGHT RADIAL, Blood Gas Patient Temperature 37, Arterial Blood pH 7.45, Arterial Blood Partial Pressure CO2 42, Arterial Blood Partial Pressure O2 80, Arterial Blood HCO3 29, Arterial Blood Total CO2 30.4, Arterial Blood Oxygen Saturation 96, Arterial Blood Base Excess 5.2, Osmany Test POSITIVE, Blood Gas Ventilator Setting NO, Blood Gas Inspired Oxygen 35 L 01/25/21 11:34: Glucometer 214 01/25/21 14:32: Lab Scanned Report Transfusion Reaction Form 01/25/21 15:50: Glucometer 284 01/25/21 20:13: Glucometer 279 01/26/21 04:50: White Blood Count 8.7, Red Blood Count 5.29, Hemoglobin 14.6, Hematocrit 45, Mean Corpuscular Volume 84, Mean Corpuscular Hemoglobin 28, Mean Corpuscular Hemoglobin Concent 33, Red Cell Distribution Width 11.9, Platelet Count 533, M renae Platelet Volume 9.9, Sodium Level 138, Potassium Level 3.7, Chloride Level 101, Carbon Dioxide Level 26, Anion Gap 11, Blood Urea Nitrogen 13, Creatinine 0.84, Estimat Glomerular Filtration Rate 95, BUN/Creatinine Ratio 15, Glucose Level 120, Calcium Level 8.2, Total Bilirubin 0.6, Direct Bilirubin 0.2, Indirect Bilirubin 0.4, Aspartate Amino Transf (AST/SGOT) 66, Alanine Amino transferase (ALT/SGPT) 130, Alkaline Phosphatase 72, Total Protein 5.7, Albumin 2.7 01/26/21 05:45: Glucometer 114 01/26/21 10:23: Glucometer 97 01/26/21 11:14: Glucometer 174 01/26/21 15:44: Glucometer 345 01/26/21 20:38: Glucometer 223 01/27/21 05:45: White Blood Count 9.4, Red Blood Count 5.54, Hemoglobin 15.3, Hematocrit 47, Mean Corpuscular Volume 85, Mean Corpuscular Hemoglobin 28, Mean Corpuscular Hemoglobin Concent 33, Red Cell Distribution Width 11.9, Platelet Count 558, Mean Platelet Volume 9.6, Immature Granulocyte % (Auto) 4, Neutrophils (%) (Auto) 69, Lymphocytes (%) (Auto) 19, Monocytes (%) (Auto) 7, Eosinophils (%) (Auto) 2, Basophils (%) (Auto) 0, Neutrophils # (Auto) 6.5, Lymphocytes # (Auto) 1.8, Monocytes # (Auto) 0.6, Eosinophils # (Auto) 0.2, Basophils # (Auto) 0.0, Immature Granulocyte # (Auto) 0.3, Sodium Level 139, Potassium Level 3.8, Chloride Level 103, Carbon Dioxide Level 28, Anion Gap 8, Blood Urea Nitrogen 18, Creatinine 0.83, Estimat Glomerular Filtration Rate 97, BUN/Creatinine Ratio 22, Glucose Level 102, Calcium Level 8.3, Corrected Calcium 9.2, Total Bilirubin 0.5, Aspartate Amino Transf (AST/SGOT) 74, Alanine Aminotransferase (ALT/SGPT) 205, Alkaline Phosphatase 75, Total Protein 5.6, Albumin 2.9 01/27/21 11:29: Glucometer 178 01/27/21 15:53: Glucometer 304 01/27/21 21:18: Glucometer 185 01/28/21 05:20: Glucometer 109 01/28/21 06:25: White Blood Count 9.2, Red Blood Count 5.27, Hemoglobin 14.7, Hematocrit 44, Mean Corpuscular Volume 84, Mean Corpuscular Hemoglobin 28, Mean Corpuscular Hemoglobin Concent 33, Red Cell Distribution Width 12.0, Platelet Count 513, Mean Platelet Volume 9.7, Immature Granulocyte % (Auto) 4, Neutrophils (%) (Auto) 66, Lymphocytes (%) (Auto) 22, Monocytes (%) (Auto) 7, Eosinophils (%) (Auto) 1, Basophils (%) (Auto) 0, Neutrophils # (Auto) 6.0, Lymphocytes # (Auto) 2.0, Monocytes # (Auto) 0.6, Eosinophils # (Auto) 0.1, Basophils # (Auto) 0.0, Immature Granulocyte # (Auto) 0.4, Sodium Level 137, Potassium Level 4.0, Chloride Level 103, Carbon Dioxide Level 27, Anion Gap 7, Blood Urea Nitrogen 17, Creatinine 0.84, Estimat Glomerular Filtration Rate 95, BUN/Creatinine Ratio 20, Glucose Level 85, Calcium Level 8.5, Corrected Calcium 9.5, Total Bilirubin 0.5, Aspartate Amino Transf (AST/SGOT) 72, Alanine Aminotransferase (ALT/SGPT) 227, Alkaline Phosphatase 75, Total Protein 5.4, Albumin 2.7 01/28/21 11:14: Glucometer 264 01/28/21 11:17: Glucometer 145 Discharge Home Medications: Active Scripts Active Eliquis (Apixaban) 2.5 Mg Tablet 2.5 Mg PO BID Dexamethasone 6 Mg Tablet 6 Mg PO DAILY Famotidine 20 Mg Tablet 20 Mg PO BID Compact Space Chamber (Inhaler, Assist Devices) 1 Each Spacer Each MC UD Proair Hfa (Albuterol Sulfate) 1 Puff Puff 2 Puff IH Q4H 1 PUFF = 90 MCG Reported Ozempic (Semaglutide) 0.25 Mg/0.2 Ml Pen.injctr Mg INJ FRI Metformin HCl 1,000 Mg Tablet 1,000 Mg PO BID Atorvastatin Calcium 40 Mg Tablet 40 Mg PO HS Aspirin EC (Aspirin) 81 Mg Tablet.dr 81 Mg PO HS Metoprolol Tartrate 25 Mg Tablet 25 Mg PO BID Instructions to patient/family Please see electronic discharge instructions given to patient. CHEYENNE CUNHA DO Jan 28, 2021 13:49
[2021-01-28] MEDS: ENOXAPARIN 40 MG/0.4 ML (LOVENOX) SYR SQ SCH (15:33)
[2021-01-28 16:00] VITALS: BP 112/60
== END 2021-01-28 16:01 | disposition home or self-care (01) | DRG 177 ==
LOC: EDUNIT# 04:59 → ER 05:02 → CSD 07:43 → 4TH 01-26 09:32
PROVIDERS: ADMIT Family Medicine; ATTEND Internal Medicine
PROC: XW13325 Transfusion of Convalescent Plasma (Nonautologous) into Peripheral Vein, Percutaneous Approach, New Technology Group 5 (ICD-10-PCS; principal; 2021-01-21)
PROC: 8E0ZXY6 Isolation (ICD-10-PCS; 2021-01-21)
DX: U07.1 COVID-19 (principal); J12.82 Pneumonia due to coronavirus disease 2019; J96.01 Acute respiratory failure with hypoxia; I25.10 Atherosclerotic heart disease of native coronary artery without angina pectoris; E78.00 Pure hypercholesterolemia, unspecified; E11.65 Type 2 diabetes mellitus with hyperglycemia; I10 Essential (primary) hypertension; T38.0X5A Adverse effect of glucocorticoids and synthetic analogues, initial encounter; Z95.5 Presence of coronary angioplasty implant and graft; Z79.02 Long term (current) use of antithrombotics/antiplatelets; Z79.82 Long term (current) use of aspirin; Z79.84 Long term (current) use of oral hypoglycemic drugs; Z79.899 Other long term (current) drug therapy; Z73.0 Burn-out
CPT/HCPCS: 36415; 71045; 71275; 80048; 80053; 80076; 82248; 82805; 82947; 83605; 83880; 84145; 85007; 85025; 85027; 85379; 85610; 85730; 86141; 86900; 86901; 87040; 94640; 94664; 94760; 94761; 96361; 96374; 96375

== ENCOUNTER 2022-07-18 07:06 | Day surgery (SDC) | payer BC ==
[2022-07-18] VITALS (24 sets, daily range): BP systolic 121–183; BP diastolic 69–109
[~2022-07-18] VITALS: Ht 182.9 cm; Wt 95.0 kg
[~2022-07-18 07:06] MED LIST changes: +ALBU8.5H6 IH; +APIX2.5T PO; +CLOP-31 PO; -CLOP75TA69 PO; +DEXA6TAB PO; +FAMO20TA5 PO; +INHA1SPA32 MC; +METF-399 PO; +SEMA0.25 INJ
[2022-07-18] MEDS ORDERED: NS IV 1000 ML 1,000 ML IV SCH ×3 (07:30→10:15)
[2022-07-18 07:35] LABS: HEMATOCRIT 48 % (40-54); MEAN CORPUSCULAR HEMOGLOBIN 28 pg (25-34); MEAN CORPUSCULAR HGB CONC 34 g/dL (32-36); MEAN CORPUSCULAR VOLUME 84 fL (80-99); MEAN PLATELET VOLUME 8.9 fL (9.0-12.2); PLATELET COUNT 317 10^3/uL (130-400); WHITE BLOOD COUNT 8.5 10^3/uL (4.3-11.0)
[2022-07-18] MEDS ORDERED: RT-ALBUINH INH (07:46)
[2022-07-18] MEDS ORDERED: LIDOCAINE 1% INJ 20 ML VIAL ONE (07:51)
[2022-07-18] MEDS ORDERED: HEParin (CATH LAB) 2,000 ML IV ONE (07:51)
[2022-07-18] MEDS ORDERED: NS IV 1000 ML 1,000 ML ONE (07:51)
[2022-07-18] MEDS ORDERED: MIDAZOLAM 5 MG/5 ML (VERSED) VIAL ONE (07:53)
[2022-07-18] MEDS ORDERED: fentaNYL INJ 100 MCG/2 ML AMP ONE (07:53)
[2022-07-18 07:59] LABS: ALBUMIN 3.8 GM/DL (3.2-4.5); BILIRUBIN,TOTAL 0.5 MG/DL (0.1-1.0); CREATININE SERUM 1.03 MG/DL (0.60-1.30); POTASSIUM 3.6 MMOL/L (3.6-5.0); TOTAL PROTEIN 6.8 GM/DL (6.4-8.2)
[2022-07-18 08:05] LABS: INR 0.8 (0.8-1.4); PROTHROMBIN TIME PATIENT 11.9 SEC (12.2-14.7)
[2022-07-18] MEDS ORDERED: HEParin 1000 UNIT/ML (10ML VIAL) FOR BOLUS ONE (08:45)
[2022-07-18] MEDS ORDERED: EPTIFIBATIDE BOLUS 20 ML IV ONE (08:46)
[2022-07-18] MEDS ORDERED: NITRO DRIP 25000 MCG/D5W 0 ML IV ONE (08:46)
[2022-07-18] MEDS ORDERED: ASPIRIN 81 MG CHEW (CHILDREN'S ASA) ONE (09:26)
[2022-07-18] MEDS ORDERED: CLOPIDOGREL 300 MG (PLAVIX) TABLET PO ONE (09:26)
--- NOTE | 2022-07-18 09:53 | Cardiac Procedure Note-CS/ASA ---
Pre-Procedure Note Pre-Op Procedure Note Date of Available H&P: Jul 10, 2022 Date H&P Reviewed: Jul 18, 2022 Time H&P Reviewed: 08:15 History & Physical: H&P Reviewed, No changes noted Conscious Sedation Pre-Proced ASA Score 2, 3 For ASA 3 and 4: Consider anesthesia and medical clearance. Also, for patients with a history of failed moderate sedation consider anesthesia. Airway Lungs Heart ASA score ASA 1: a normal healthy patient ASA 2: a patient with a mild systemic disease (mid diabetes, controlled hypertension, obesity ASA 3: a patient with a severe systemic disease that limits activity (angina, COPD, prior Myocardial infarction) ASA 4: a patient with an incapacitating disease that is a constant threat to life (CHF, renal failure) ASA 5: a moribund patient not expected to survive 24 hrs. (ruptured aneurysm) ASA 6: a declared brain- patient whose organs are being harvested. For emergent operations, add the letter E after the classification Mallampati Classification Grade 2 Sedation Plan Analgesia, Amnesia, Plan communicated to team members The patient is an appropriate candidate to undergo the planned procedure, sedation, and anesthesia. The patient immediately re-assessed prior to indication. [place] TEJADA MD FACP FAC CCDS Jul 18, 2022 09:53
[2022-07-18] MEDS ORDERED: PATIENT MAY USE OWN MEDS, ALL PO SCH (10:15)
[2022-07-18] MEDS ORDERED: RT-ALBUTEROL SULF 2.5 MG/3 ML PRE-MIX VIAL INH PRN (10:15)
[2022-07-18] MEDS ORDERED: SEMAGLUTIDE INJ SCH (10:15)
[2022-07-18] MEDS ORDERED: amLODIPine 5 MG (NORVASC) TAB PO NR ×2 (10:30→13:15)
[2022-07-18] MEDS ORDERED: FAMOTIDINE 20 MG (PEPCID) TABLET PO NR (10:30)
[2022-07-18] MEDS ORDERED: ATROPINE INJ 0.4 MG/ML SDV ONE (11:16)
[2022-07-18] MEDS ORDERED: doxAzosin 4 MG (CARDURA) TAB PO PRN (13:15)
[2022-07-18] MEDS ORDERED: doxAzosin 2 MG (CARDURA) TAB PO PRN (13:30)
[2022-07-18] MEDS: FAMOTIDINE 20 MG (PEPCID) TABLET PO SCH (20:59)
[2022-07-18] MEDS: meTOprolol TARTRATE 25 MG (LOPRESSOR) TABLET PO SCH (21:00)
[2022-07-19] VITALS (16 sets, daily range): BP systolic 111–137; BP diastolic 59–101
[2022-07-19 05:29] LABS: BASOPHILS % (AUTO) 1 % (0-10); EOSINOPHILS # (AUTO) 0.1 10^3/uL (0.0-0.3); EOSINOPHILS % (AUTO) 1 % (0-10); HEMATOCRIT 43 % (40-54); HEMOGLOBIN 14.3 g/dL (13.3-17.7); LYMPHOCYTES # (AUTO) 2.1 10^3/uL (1.0-4.0); LYMPHOCYTES % (AUTO) 30 % (12-44); MEAN CORPUSCULAR HEMOGLOBIN 28 pg (25-34); MEAN CORPUSCULAR HGB CONC 33 g/dL (32-36); MEAN CORPUSCULAR VOLUME 83 fL (80-99); MEAN PLATELET VOLUME 9.1 fL (9.0-12.2); MONOCYTES # (AUTO) 0.5 10^3/uL (0.0-1.0); MONOCYTES % (AUTO) 7 % (0-12); NEUTROPHILS # (AUTO) 4.3 10^3/uL (1.8-7.8); NEUTROPHILS % (AUTO) 61 % (42-75); PLATELET COUNT 274 10^3/uL (130-400)
[2022-07-19 05:46] LABS: CALCIUM 8.6 MG/DL (8.5-10.1); CREATININE SERUM 0.97 MG/DL (0.60-1.30); POTASSIUM 3.6 MMOL/L (3.6-5.0)
--- NOTE | 2022-07-19 07:52 | Progress Note - Cardiology ---
Cardiology SOAP Progress Note Objective: I&O/Vital Signs 07/18/22 07/18/22 07/19/22 07/19/22 22:00 23:00 00:00 00:00 Pulse 66 77 63 Resp 20 20 13 B/P (MAP) 121/75 (90) 137/84 (101) 134/82 (99) Pulse Ox 96 96 94 95 O2 Delivery Room Air Room Air Room Air Room Air 07/19/22 07/19/22 07/19/22 07/19/22 00:00 01:00 01:00 02:00 Temp 36.7 Pulse 70 68 64 Resp 12 13 B/P (MAP) 124/81 (95) 111/59 (76) Pulse Ox 93 93 O2 Delivery Room Air Room Air 07/19/22 07/19/22 07/19/22 07/19/22 03:00 04:00 04:00 04:00 Temp 36.9 Pulse 63 69 Resp 12 12 B/P (MAP) 115/85 (95) 119/77 (91) Pulse Ox 94 93 94 O2 Delivery Room Air Room Air Room Air 07/19/22 07/19/22 07/19/22 07/19/22 05:00 06:00 07:00 07:12 Pulse 65 62 61 61 Resp 12 12 11 B/P (MAP) 111/77 (88) 118/77 (91) 117/77 (90) Pulse Ox 94 95 95 O2 Delivery Room Air Room Air Room Air 07/19/22 07/19/22 08:00 08:00 Temp 36.6 Pulse 76 Resp 12 B/P (MAP) 137/101 (113) Pulse Ox 97 O2 Delivery Room Air 07/19/22 00:00 Intake Total 1390 ml Output Total 0 ml Balance 1390 ml Weight (Pounds): 223 Weight (Ounces): 0.0 Weight (Calculated Kilograms): 101.156119 Results/Procedures: Labs Laboratory Tests 07/19/22 04:21: White Blood Count 7.0, Red Blood Count 5.19, Hemoglobin 14.3, Hematocrit 43, Mean Corpuscular Volume 83, Mean Corpuscular Hemoglobin 28, Mean Corpuscular Hemoglobin Concent 33, Red Cell Distribution Width 12.5, Platelet Count 274, Mean Platelet Volume 9.1, Immature Granulocyte % (Auto) 0, Neutrophils (%) (Auto) 61, Lymphocytes (%) (Auto) 30, Monocytes (%) (Auto) 7, Eosinophils (%) (Auto) 1, Basophils (%) (Auto) 1, Neutrophils # (Auto) 4.3, Lymphocytes # (Auto) 2.1, Monocytes # (Auto) 0.5, Eosinophils # (Auto) 0.1, Basophils # (Auto) 0.0, Immature Granulocyte # (Auto) 0.0, Sodium Level 138, Potassium Level 3.6, Chlor [place] Level 107, Carbon Dioxide Level 22, Anion Gap 9, Blood Urea Nitrogen 12, Creatinine 0.97, Estimat Glomerular Filtration Rate 92, BUN/Creatinine Ratio 12, Glucose Level 199H, Calcium Level 8.6 Microbiology 07/18/22 MRSA Screen - Final, Complete MRSA not isolated A/P: Assessment: CAD: - Subacute myocardial infarction without ST elevation on 07-30-16 - cardiac cath on 08-01-16 which showed single-vessel, primarily consisting of 99% ostial and proximal stneosis of the ramus intermedius artery to which successful balloon angioplasty and stenting was carried out with Alpine Xience 2.25 x 23 mm stent, which reduced stenosis to 0% residual and improved antegrade flow to normal. The very distal part of this vessel does have diffuse, severe disease that is not amenable to intervention on account of small vessel caliber where these stenoses are. LVEF 60%. Mild apical hypokinesis. Normal LVEDP No significant MR. - Cardiac cath of September 25, 2017 showed angiographically mild CAD. Widely patent stent within the prox and mid ramus intermedius artery (known to be Alpine Xience 2.[address] on 08-01-16). LVEF 65%. No significant MR. LVEDP at the upper end of normal. - MPI of 11-16-20 showed no evidence of ischemia or infarction. LVEF 54% - Echocardiogram of 08-02-16 showed normal global LV systolic function with an LVEF of approx 50%. Trivial tricuspid regurg. PASP approx 35-40mmHg. Mild diastolic dysfunction of the LV. Mild concentric LVH. No evidence of any significant valvular disease HLP - statin tx DM 2 - following with his PCP Family h/o - early heart disease Carotid arterial dz: - Carotid u/s of 11-03-20 showed minimal plaque bilat COVID (+) in Summer 2020 ROGELIO SANDERSON Jul 19, 2022 07:52
[2022-07-19] MEDS ORDERED: CLOP75TA28 PO (07:55)
[2022-07-19] MEDS ORDERED: FAMO20TA5 PO (07:55)
[2022-07-19] MEDS ORDERED: ASPI81TA64 PO (07:55)
--- NOTE | 2022-07-19 07:57 | Discharge Inst-Cardiology ---
Discharge Inst-Cardiac Discharge Medications New Medications: Aspirin (Children's Aspirin) 81 Mg Tab.chew 81 MG PO DAILY, #90 TAB 3 Refills Clopidogrel Bisulfate (Clopidogrel) 75 Mg Tablet 75 MG PO DAILY, #90 TAB 3 Refills Famotidine (Famotidine) 20 Mg Tablet 20 MG PO BID, #60 TAB 5 Refills Continued Medications: Albuterol Sulfate (Ventolin Hfa) 1 Puff Puff 2 PUFF INH Q4H PRN for SHORTNESS OF BREATH, EA Atorvastatin Calcium (Atorvastatin Calcium) 40 Mg Tablet 40 MG PO HS, TAB Metformin HCl (Metformin HCl) 1,000 Mg Tablet 1000 MG PO BID, TAB Metoprolol Tartrate (Metoprolol Tartrate) 25 Mg Tablet 25 MG PO BID, TAB Semaglutide (Ozempic) 0.25 Mg/0.2 Ml Pen.injctr 1.5 ML INJ SUNDAY, ML New, Converted or Re-Newed RX: Transmitted to Pharmacy Patient Instructions Patient Instructions: DO NOT TAKE METFORMIN TODAY OR TOMORROW. RESTART ON SUNDAY, JULY 21, 2022 Please schedule follow up appointment to see Dr. Lorenz in one week ROGELIO SANDERSON Jul 19, 2022 07:57
[2022-07-19] MEDS ORDERED: amLODIPine 10 MG (NORVASC) TAB PO SCH (09:00)
[2022-07-19] MEDS ORDERED: ASPIRIN 81 MG CHEW (CHILDREN'S ASA) PO SCH (09:00)
[2022-07-19] MEDS ORDERED: amLODIPine 5 MG (NORVASC) TAB PO SCH ×2 (09:00)
[2022-07-19] MEDS ORDERED: CLOPIDOGREL 75 MG (PLAVIX) TABLET PO SCH (09:00)
[2022-07-19] MEDS: meTOprolol TARTRATE 25 MG (LOPRESSOR) TABLET PO SCH (09:02)
[2022-07-19] MEDS: FAMOTIDINE 20 MG (PEPCID) TABLET PO SCH (09:04)
--- NOTE | 2022-07-19 09:28 | Progress Note - Cardiology ---
Cardiology SOAP Progress Note Subjective: Sitting up in bed eating morning meal No c/o CP, SOB, palpitations, syncope or near syncope No c/o right groin discomfort Objective: I&O/Vital Signs Weight (Pounds): 223 Weight (Ounces): 0.0 Weight (Calculated Kilograms): 101.536479 Side: right Condition: DP/PT pulses palpable, extremity w/d/p Bruising: mild bruising Constitutional: AAO x 3, well-developed, well-nourished Respiratory: No accessory muscle use, No respiratory distress; chest expansion is symmetric, chest is bilaterally symmetric, lungs clear to auscultation Cardiovascular: regular rate-rhythm; No JVD; S1 and S2 Gastrointestional: No tender; soft, round, audible bowel sounds Extremities: no lower extremity edema bilateral Neurologic/Psychiatric: grossly intact (moves all extremities) Skin: No rash on exposed areas, No ulcerations on exposed areas Results/Procedures: Labs Microbiology 07/18/22 MRSA Screen - Final, Complete MRSA not isolated A/P: Assessment: CAD: - Subacute myocardial infarction without ST elevation on 07-30-16 - cardiac cath on 08-01-16 which showed single-vessel, primarily consisting of 99% ostial and proximal stneosis of the ramus intermedius artery to which successful balloon angioplasty and stenting was carried out with Alpine Xience 2.25 x 23 mm stent, which reduced stenosis to 0% residual and improved antegrade flow to normal. The very distal part of this vessel does have diffuse, severe disease that is not amenable to intervention on account of small vessel caliber where these stenoses are. LVEF 60%. Mild apical hypokinesis. Normal LVEDP No signif icant MR. - Cardiac cath of September 25, 2017 showed angiographically mild CAD. Widely patent stent within the prox and mid ramus intermedius artery (known to be Alpine Xience 2.[address] on 08-01-16). LVEF 65%. No significant MR. LVEDP at the upper end of normal. - MPI of 11-16-20 showed no evidence of ischemia or infarction. LVEF 54% - Echocardiogram of 08-02-16 showed normal global LV systolic function with an LVEF of approx 50%. Trivial tricuspid regurg. PASP approx 35-40mmHg. Mild diastolic dysfunction of the LV. Mild concentric LVH. No evidence of any significant valvular disease - S/P PCI on 07-18-22 HLP - statin tx DM 2 - following with his PCP Family h/o - early heart disease Carotid arterial dz: - Carotid u/s of 11-03-20 showed minimal plaque bilat COVID (+) in Summer 2020 Plan: S/P cardiac cath with successful coronary intervention on 07-18-22 Ok to discharge home today - continue Plavix, ASA, BB and statin Out pt f/u in 1-2 weeks May return to work on Sunday without cardiac restrictions ROGELIO SANDERSON Jul 19, 2022 09:28
--- NOTE | 2022-07-19 12:50 | Progress Note - Cardiology ---
Cardiology SOAP Progress Note Subjective: Shortness of breath improving Gen weakness improving No groin or leg discomfort or discoloration No cp or palp or syncope No focal weakness No n/v/d Objective: I&O/Vital Signs 07/19/22 07/19/22 07/19/22 07/19/22 01:00 01:00 02:00 03:00 Pulse 70 68 64 63 Resp 12 13 12 B/P (MAP) 124/81 (95) 111/59 (76) 115/85 (95) Pulse Ox 93 93 94 O2 Delivery Room Air Room Air Room Air 07/19/22 07/19/22 07/19/22 07/19/22 04:00 04:00 04:00 05:00 Temp 36.9 Pulse 69 65 Resp 12 12 B/P (MAP) 119/77 (91) 111/77 (88) Pulse Ox 93 94 94 O2 Delivery Room Air Room Air Room Air 07/19/22 07/19/22 07/19/22 07/19/22 06:00 07:00 07:12 08:00 Temp 36.6 Pulse 62 61 61 Resp 12 11 B/P (MAP) 118/77 (91) 117/77 (90) Pulse Ox 95 95 O2 Delivery Room Air Room Air 07/19/22 07/19/22 07/19/22 07/19/22 08:00 08:00 09:00 10:00 Pulse 76 65 64 Resp 12 15 12 B/P (MAP) 137/101 (113) 124/89 (101) 129/81 (97) Pulse Ox 97 97 96 95 O2 Delivery Room Air Room Air Room Air Room Air 07/19/22 07/19/22 07/19/22 11:00 11:50 12:00 Temp 36.6 Pulse 64 64 Resp 12 14 B/P (MAP) 115/85 (95) 128/85 (99) Pulse Ox 95 93 O2 Delivery Room Air Room Air 07/19/22 00:00 Intake Total 1390 ml Output Total 0 ml Balance 1390 ml Weight (Pounds): 223 Weight (Ounces): 0.0 Weight (Calculated Kilograms): 101.858988 Side: right Condition: DP/PT pulses palpable, extremity w/d/p Bruising: mild bruising Constitutional: AAO x 3, well-developed, well-nourished Respiratory: No accessory muscle use, No respiratory distress; chest expansion is symmetric, chest is bilaterally symmetric, lungs clear to auscultation Cardiovascular: regular rate-rhythm; No JVD; S1 and S2 Gastrointestional: No tender; soft, round, audible bowel sounds Extremities: no lower extremity edema bilateral Neurologic/Psychiatric: grossly intact (moves all extremities) Skin: No rash on exposed areas, No ulcerations on exposed areas Results/Procedures: Labs Laboratory Tests 07/19/22 04:21: White Blood Count 7.0, Red Blood Count 5.19, Hemoglobin 14.3, Hematocrit 43, Mean Corpuscular Volume 83, Mean Corpuscular Hemoglobin 28, Mean Corpuscular Hemoglobin Concent 33, Red Cell Distribution Width 12.5, Platelet Count 274, Nancy n Platelet Volume 9.1, Immature Granulocyte % (Auto) 0, Neutrophils (%) (Auto) 61, Lymphocytes (%) (Auto) 30, Monocytes (%) (Auto) 7, Eosinophils (%) (Auto) 1, Basophils (%) (Auto) 1, Neutrophils # (Auto) 4.3, Lymphocytes # (Auto) 2.1, Monocytes # (Auto) 0.5, Eosinophils # (Auto) 0.1, Basophils # (Auto) 0.0, Immature Granulocyte # (Auto) 0.0, Sodium Level 138, Potassium Level 3.6, Chloride Level 107, Carbon Dioxide Level 22, Anion Gap 9, Blood Urea Nitrogen 12, Creatinine 0.97, Estimat Glomerular Filtration Rate 92, BUN/Creatinine Ratio 12, Glucose Level 199H, Calcium Level 8.6 Microbiology 07/18/22 MRSA Screen - Final, Complete MRSA not isolated A/P: Assessment: CAD: - Subacute myocardial infarction without ST elevation on 07-30-16 - cardiac cath on 08-01-16 which showed single-vessel, primarily consisting of 99% ostial and proximal stneosis of the ramus intermedius artery to which successful balloon angioplasty and stenting was carried out with Alpine Xience 2.25 x 23 mm stent, which reduced stenosis to 0% residual and improved antegrade flow to normal. The very distal part of this vessel does have diffuse, severe disease that is not amenable to intervention on account of small vessel caliber where these stenoses are. LVEF 60%. Mild apical hypokinesis. Normal LVEDP No significant MR. - Cardiac cath of September 25, 2017 showed angiographically mild CAD. Widely patent stent within the prox and mid ramus intermedius artery (known to be Alpine Xience 2.[address] on 08-01-16). LVEF 65%. No significant MR. LVEDP at the upper end of normal. - MPI of 11-16-20 showed no evidence of ischemia or infarction. LVEF 54% - Echocardiogram of 08-02-16 showed normal global LV systolic function with an L VEF of approx 50%. Trivial tricuspid regurg. PASP approx 35-40mmHg. Mild diastolic dysfunction of the LV. Mild concentric LVH. No evidence of any significant valvular disease - Card cath on 07/18/22: 90% instent LAD stenosis treated with successful balloon angioplasty that reduced the stenosis to less than 10%; high D1 had mod prox disease; other cors had mild to mod diff disease; RCA dominant HLP - statin tx DM 2 - following with his PCP Family h/o - early heart disease Carotid arterial dz: - Carotid u/s of 11-03-20 showed minimal plaque bilat COVID (+) in Summer 2020 Plan: I discussed his cath findings and interventions undertaken and our treatment plan with him in detail and answered questions Ok to discharge home today - continue Plavix, ASA, BB and statin Out pt f/u in 1-2 weeks May return to work on Sunday without cardiac restrictions INDIANA TEJADA MD FACP FACC CCDS Jul 19, 2022 12:50
== END 2022-07-19 15:15 | disposition home or self-care (01) ==
LOC: CATH 07:06 → ICU 10:02 → CATH 07-19 15:15
PROVIDERS: ATTEND Internal Medicine Cardiovascular Disease
DX: I25.10 Atherosclerotic heart disease of native coronary artery without angina pectoris (principal); I25.2 Old myocardial infarction; E78.5 Hyperlipidemia, unspecified; E11.9 Type 2 diabetes mellitus without complications; Z86.16 Personal history of COVID-19; I77.9 Disorder of arteries and arterioles, unspecified
CPT/HCPCS: 80048; 80053; 80061; 85025; 85027; 85610; 85730; 87081; 92920; 93005; 93458; C1725; C1769 ×2; C1887; C1894 ×2; 36415